=== PATIENT | male | born 1970 | race Caucasian/White ===

== ENCOUNTER → 2025-01-20 | Outpatient (CLI) | payer BC, SELFPAY ==
--- NOTE | 2025-01-20 10:23 | MRI_ITS ---
PROCEDURE: BRAIN W/WO CONTRAST 01/20/2025 REASON FOR EXAM: HEADACHE, NEW ONSET TECHNIQUE: Routine brain MRI without and with intravenous contrast. Multiplanar and multisequence images were obtained. CONTRAST: Clariscan VOLUME: 20 mL COMPARISON: None. FINDINGS: The ventricles are normal in size and midline in position. No evidence of acute hemorrhage or infarction. No extra-axial blood or fluid collections. The paranasal sinuses are clear. The mastoid air cells are well aerated. The calvarial vault and skull base are intact. No abnormal intracranial enhancement. MRI/Brain W/WO Contrast IMPRESSION: No acute intracranial abnormality. Reading Location: [place] [id number]
== END | disposition home or self-care (01) ==
PROVIDERS: PCP Family Medicine; Referring Provider Family Medicine; Visit Provider Family Medicine
DX: R51.9 Headache, unspecified (principal)
CPT/HCPCS: 70553; A9575

== ENCOUNTER 2025-02-08 10:13 | Inpatient (IN) | payer BC, SELFPAY ==
[2025-02-08] VITALS (21 sets, daily range): BP systolic 87–151; BP diastolic 46–93; PULSE 80–136; RESP 12–20; TEMP 36.1–37.2; O2SAT 95–100; BMI 34.6; BMI 34.1
--- NOTE | 2025-02-08 10:30 | EKG12_ITS ---
Test Reason : REPEAT Blood Pressure : */* mmHG Vent. Rate : 87 BPM Atrial Rate : 348 BPM P-R Int : * ms QRS Dur : 94 ms QT Int : 338 ms P-R-T Axes : 81 45 41 degrees QTcB Int : 406 ms Atrial flutter with 4:1 A-V conduction Nonspecific ST abnormality Abnormal ECG Confirmed by ADDIE OLIVAREZ, ULYSSES ([id number]), editor department YANDEL CALVIN ([id number]) on 02/10/2025 6:34:01 AM Referred By: Confirmed By: ULYSSES REAL MD
--- NOTE | 2025-02-08 10:31 | EDS_ITS ---
HPI History of Present Illness Chief Complaint: Palpitations Onset/Context/Timing Onset: Today Activity at onset: sudden Timing: Continuous Quality: Positive for - (Skipping) Worsened By: Nothing Relieved By: Nothing Associated Symptoms: Positive for Diaphoresis and Palpitations; Negative for Nausea, Vomiting, Dyspnea, Cough, Fever, Lightheadedness or Acid Reflux Narrative Narrative: Patient presents with palpitations that began this morning. Patient states he has no sensation of his heart racing or skipping. Patient states he went for a bike ride this morning. Patient states he rode approximately 20 miles on his bicycle. Patient states that his heart rate monitor was at 155 prior to him starting his ride. Patient states that he checked his pulse occasionally during the ride and noted that it was irregular. Patient states that he got up this morning ate breakfast and drank water. Patient states he drank some Gatorade as well. Patient states that he got onto his bicycle and noted the elevated heart rate. Patient denies any chest pain. Patient states he has not been sleeping well over the past couple weeks. Patient denies any shortness of breath. Patient does admit to some diaphoresis. CVD Risk Factors: Negative for Hypertension, Diabetes, Hypercholesterolemia, Family History 1' </=55 or Smoking PE Risk Factors: Positive for Recent Travel/Surgery; Negative for Recent Immobilization, Prior DVT or PE, Cancer or OCP + Smoking + >/=35 PFSH [facility] Medical History Neck pain Home Medications ?Medication ?Instructions ?Recorded ?Last Taken ?Type NK 02/08/25 Unknown History Allergy/AdvReac Type Severity Reaction Status Date / Time Penicillins (PCN) Allergy Mild Rash Verified 02/08/25 10:16 Sulfa (Sulfonamide Allergy Mild Rash Verified 02/08/25 10:16 Antibiotics) Family History no significant family his Surgical History no surgical history no surgical history Social History household members: spouse housing: house current occupational status: employed Smoking Status: Never smoker ROS ROS ED Constitutional Constitutional ED: Denies chills or fever(s) Eyes Eyes: Denies blurry vision or change in vision ENT ENT ED: Denies rhinorrhea or sore throat Cardiovascular Cardiovascular: Reports chest pain and palpitations Respiratory/Chest Respiratory/Chest: Denies cough or dyspnea Gastrointestinal Gastrointestinal: Denies nausea or vomiting Genitourinary Genitourinary ED: Reports urinary frequency; Denies dysuria or hematuria Musculoskeletal Musculoskeletal: Denies back pain or neck pain Integumentary Denies abscess or rash Neurologic Neurologic: Denies headache(s) or weakness Allergic/Immunologic Allergic/Immunologic ED: Denies mouth swelling or urticaria EXAM Physical Exam Const Vital Signs: 02/08/25 10:13 02/08/25 10:23 02/08/25 10:30 Temperature 99 F Temperature Source Oral Pulse Rate 136 H Respiratory Rate 15 Respiratory Effort Normal Non-Labored Blood Pressure 151/93 H Blood Pressure Mean 112 Pulse Ox 97 100 Oxygen Delivery Method Room Air Room Air 02/08/25 11:13 02/08/25 12:00 02/08/25 13:00 Temperature Temperature Source Pulse Rate 82 85 87 Respiratory Rate 12 17 16 Respiratory Effort Blood Pressure 107/72 141/69 H Blood Pressure Mean 83 93 Pulse Ox 100 96 97 Oxygen Delivery Method Room Air Room Air Room Air Positive well nourished and well developed Constitutional Narrative: BMI is 34.6. General Appearance ED: well developed and NAD HEENT Reports moist mucous membranes Neck supple and no JVD Chest Wall palpation of chest normal Resp normal respiratory effort and clear to auscultation bilaterally Cardio Rate: tachycardic Rhythm: abnormal rhythm irregularly irregular GI soft to palpation, non-tender and non-distended Extremity normal to inspection General Extremety ED: Negative for edema or tenderness General Extremity: Negative for edema Neuro oriented x3, CN's II-XII intact bilaterally and no sensory deficits noted Sensorium / Orientation: awake and alert Motor Exam: strength 5/5 throughout Heart Score History: Moderately Suspicious ECG: Nonspecific Repolarization Age: >45 - <65 years Risk Factors: No Risk Factors Score: 3 MDM MDM MDM Narrative Medical decision making narrative: Differential diagnosis includes cardiac dysrhythmia, cardiac ischemia, pneumonia, bronchitis, electrolyte abnormality, dehydration, urinary tract infection, pulmonary embolism, and anxiety. EKG will be obtained to assess for cardiac dysrhythmia and cardiac ischemia. Chest x-ray will be obtained to assess for pneumonia and congestive heart failure. High-sensitivity troponin will be obtained to assess for cardiac ischemia. 2-hour repeat high-sensitivity troponin will be obtained to assess for ongoing cardiac ischemia. D-dimer will be obtained to assess for pulmonary embolism. Patient requested TSH be drawn. This was ordered to assess for hyperthyroidism and hypothyroidism. Lab Data Attestation: I reviewed the patient's lab results. Lab results narrative: CBC was reviewed and was within normal limits. Basic metabolic profile was reviewed. BUN was slightly elevated at 26. Creatinine was normal at 1.02. Glucose was slightly elevated at 111. Initial high-sensitivity troponin was reviewed and was normal at 21. D-dimer was reviewed and was elevated at 0.61. 2-hour repeat high-sensitivity troponin was reviewed and was normal at 19. TSH was reviewed and was normal at 1.6. Labs: Laboratory Results - last 24 hr 02/08/25 02/08/25 02/08/25 10:15 10:18 11:31 WBC 10.2 RBC 4.52 L Hgb 14.1 Hct 41.8 MCV 92.5 MCH 31.2 MCHC 33.7 RDW Std Deviation 43.9 RDW Coeff of Kapil 12.9 Plt Count 436 MPV 9.0 Immature Gran % (Auto) 0.900 Neut % (Auto) 71.4 H Lymph % (Auto) 19.7 [place] % (Auto) 6.6 Eos % (Auto) 1.0 Baso % (Auto) 0.4 Absolute Neuts (auto) 7.3 Absolute Lymphs (auto) 2.01 Nucleated RBC % 0 D-Dimer Quant (PE/DVT) 0.61 H* Sodium 138 Potassium 4.2 Chloride 102 Carbon Dioxide 23.0 Anion Gap 13 BUN 26 H Creatinine 1.02 Estim Creat Clear Calc 96.44 Est GFR (MDRD) Non-Af 87 BUN/Creatinine Ratio 25.5 H Glucose 111 H Calcium 9.5 Magnesium 2.1 Total Bilirubin 0.34 Direct Bilirubin 0.15 AST 16 ALT 20 Alkaline Phosphatase 64 Troponin T High Sens 21 Troponin T Hi Sens 2 Hr Total Protein 6.4 Albumin 3.5 Globulin 2.9 TSH Urine Color Yellow Urine Clarity Clear Urine pH 6.0 Ur Specific [place] 1.015 Urine Protein 15 H Urine Glucose (UA) Normal Urine Ketones Negative Urine Occult Blood Negative Urine Nitrite Negative Urine Bilirubin Negative Urine Urobilinogen Normal Ur Leukocyte Esterase Negative Urine RBC 0 SEEN Urine WBC 0 SEEN Ur Squamous Epith Cells 0 SEEN Urine Bacteria 0 SEEN Urine Mucus 0 SEEN 02/08/25 12:18 WBC RBC Hgb Hct MCV MCH MCHC RDW Std Deviation RDW Coeff of Kapil Plt Count MPV Immature Gran % (Auto) Neut % (Auto) Lymph % (Auto) [place] % (Auto) Eos % (Auto) Baso % (Auto) Absolute Neuts (auto) Absolute Lymphs (auto) Nucleated RBC % D-Dimer Quant (PE/DVT) Sodium Potassium Chloride Carbon Dioxide Anion Gap BUN Creatinine Estim Creat Clear Calc Est GFR (MDRD) Non-Af BUN/Creatinine Ratio Glucose Calcium Magnesium Total Bilirubin Direct Bilirubin AST ALT Alkaline Phosphatase Troponin T High Sens Troponin T Hi Sens 2 Hr 19 Total Protein Albumin Globulin TSH 1.600 Urine Color Urine Clarity Urine pH Ur Specific [place] Urine Protein Urine Glucose (UA) Urine Ketones Urine Occult Blood Urine Nitrite Urine Bilirubin Urine Urobilinogen Ur Leukocyte Esterase Urine RBC Urine WBC Ur Squamous Epith Cells Urine Bacteria Urine Mucus Radiography Chest X-Ray - ED: 1 View, Read by ED Physician, Read by Radiologist, No Acute Disease and Cardiomegaly Diagnostic Testing: Clinical Impression(s) from Imaging Studies Chest X-Ray 02/08/25 10:45 IMPRESSION: Cardiomegaly. No acute findings. Reading Location: [facility] Chest CTA 02/08/25 10:56 IMPRESSION: NORMAL CHEST CTA. NO EVIDENCE OF ACUTE PULMONARY EMBOLISM. Reading Location: [facility] Portable 1 view chest x-ray was obtained. On my independent interpretation, lung padgett are clear. There is cardiomegaly noted. Bony thorax is normal. There is no acute process noted. Radiologist also interpreted the x-ray and agrees. Because of the elevated D-dimer, CTA of the chest was obtained. There is no evidence of pulmonary embolism or aortic dissection. There is no acute process noted. This was interpreted by the radiologist and was also independently reviewed by myself. EKG Initial EKG: Attestation: I personally reviewed and interpreted this EKG as follows: Interpretation: Atrial Fibrillation (138) and Non-Specific ST Changes Comments: EKG was obtained. On my independent interpretation, shows atrial fibrillation with a rate of 138. QRS interval was normal at 96. QTc interval was slightly prolonged at 502 ms. [place] is normal. There are nonspecific ST-T wave changes. Prior EKG tracings: not available for review Prior: No Prior Follow-up EKG: Attestation: I personally reviewed and interpreted this EKG as follows: Interpretation: Atrial Fibrillation (87) and Non-Specific ST Changes Comments: Repeat EKG was obtained. On my independent interpretation, it showed atrial flutter with 4-1 conduction with a rate of 87. QRS interval was normal at 94 ms. QTc interval was normal at 406 ms. [place] is normal at 45. There are nonspecific ST-T wave changes noted. Prior EKG tracings: available for review Prior: Unchanged Treatment and Re-Evaluation :: Patient was given aspirin. Patient was given a bolus of Cardizem. Patient's heart rate improved into the 80s. On reevaluation, patient's heart rate was starting to go back up into the 110s. Patient was started on a Cardizem drip. Case was discussed with the hospitalist for admission. He will admit the patient to PCU. Patient understood and was agreeable with the plan. All questions were answered. Critical Care Time Critical Care Time: Yes Critical care time (excluding procedures): 30-74 minutes (31), Including time spent:, Discussing w/Patient &/or Family/Hair Blender, Discussing w/Consultants, Arranging Admission or Transfer and Performing Direct Patient Care at Bedside Discharge Plan Dx/Rx/DC Orders Clinical Impression: Atrial fibrillation, new onset, Tachycardia, Atrial flutter with rapid ventricular response Disposition Disposition: Acute Care Hospital [facility] Discharge Date/Time: 02/08/25 14:14
[2025-02-08 10:36] LABS: Hematocrit 41.8 % (40-54); Hemoglobin 14.1 g/dL (13.0-16.5); Immature Granulocytes Count 0.090 X10^3/uL (0.0-0.0); Mean Corp Hgb Conc 33.7 g/dL (32-36); Mean Corpuscular Volume 92.5 fL (80-94); Mean Platelet Vol. 9.0 fl (6.2-12.0); NRBC Flagged by Analyzer 0 % (0-5); Platelet Count 436 K/mm3 (150-450); RBC Distribution Width CV 12.9 % (11.6-14.6); RBC Distribution Width SD 43.9 fl (35.1-43.9); Red Blood Count 4.52 M/mm3 (4.6-6.2); White Blood Count 10.2 K/mm3 (4.4-11.0)
--- OUTSIDE RECORDS SUMMARY | 2025-02-08 10:42 | XMS RPT_ITS | CCD ---
Author Organization [facility] Inform ion Partnership [facility] Care Team Providers Care Neon Sign Maker Name Role Phone Unavailable Primary Care Provider Joi CLIFFORD MD, YUNG Tello Primary Care Physician Russell DURHAM, Dr. Armenta Attending Provider [phone] Russell DURHAM, Dr. Armenta Referring Provider [phone] Dr. Yung Clifford MD Primary Care Provider Estella Morrison Referring Unavailable Yung Clifford Primary Care Unavailable Estella Morrison Attending Unavailable Estella Morrison Referring Unavailable Estella Morrison Attending YUNG Diaz MD Primary Care Unavailable CATRACHITA BULLOCK DO Attending YUNG Diaz MD Primary Care Unavailable RUSSELL DO, DR ESTELLA Wagner Attending YUNG Dodd MD Primary Care Unavailable RUSSELL , DR ESTELLA Wagner Attending YUNG Dodd MD Primary Care Unavailable RUSSELL , DR ESTELLA Wagner Attending Joi RILEY VP SITE-BEHAVIOR INTERVENTIONIST, AMBER Attending YUNG Nichols MD Primary Care Unavailable Allergies Allergy Classification Reported Allergen(s) Allergy Type Date of Onset Reaction(s) Facility (5 sources) Amoxicillin; Translations: [amoxicillin] Drug Allergy [facility] [place] (5 sources) Sulfonamide; Translations: [sulfa drugs] Drug allergy rash [facility] [place] Medications Current Medications Medication Drug Class(es) Dates Sig (Normalized) Sig (Original) aspirin 81 mg delayed release oral tablet (2 sources) Platelet Aggregation Inhibitor, Nonsteroidal Anti-inflammatory Drug Start: 05-19-2020 aspirin 81 mg oral delayed release tablet Dose : 81 mg = 1 tab(s), Oral, qDay, # 90 tab(s), 0 Refill(s), SOB (shortness of breath) Tachycardia Start Date: 05/19/20 Status: Ordered cetirizine hydrochloride 10 mg oral tablet (2 sources) Histamine-1 Receptor Antagonist Start: 12-06-2020 take 1 mg by mouth once daily Zyrtec 10 mg oral tablet mg = tab(s), Oral, qDay, 0 Refill(s) Start Date: 12/06/20 Status: Ordered Ergocalciferol (5 sources) Provitamin D2 Compound Start: 12-06-2020 Vitamin D2 Oral, qDay, 0 Refill(s) Start Date: 12/06/20 Status: Ordered Repeat number: 1 Start: 12-06-2020 Vitamin D2 Ora l, qDay, 0 Refill(s) Start Date: 12/06/20 Status: Ordered Probiotic (5 sources) Start: 05-31-2020 Probiotic 0 Re fill(s) Start Date: 05/31/20 Status: Ordered Repeat number: 1 Start: 05-31-2020 Probiotic 0 Re fill(s) Start Date: 05/31/20 Status: Ordered tiZANidine 4 mg oral tablet (3 sources) Central alpha-2 Adrenergic Agonist Start: 01-19-2025 tiZANidine 4 mg oral tablet Dose : 4 mg = 1 tab(s), Oral, q8h, # 30 tab(s), 0 Refill(s), [id number], Neck pain on right side, 175, cm, 01/19/25 9:38:00 EDT, Height, kg, 01/19/25 9:38:00 EDT, Dosing Weight Start Date: 01/19/25 Status: Ordered Quantity: 30.0 Unit: tab(s) Repeat number: 1 Indications: Cervicalgia; Completed/Discontinued Medications Medication Drug Class(es) Dates Sig (Normalized) Sig (Original) terbinafine 250 mg oral tablet (2 sources) Allylamine Antifungal Start: 12-06-2020 End: 02-28-2021 terbinafine 250 mg oral tablet Dose : 250 mg = 1 tab(s), Oral, qDay, # 84 tab(s), 0 Refill(s), [id number], Well adult exam Onychomycosis, 172.5, cm, 04/26/21 8:14:00 EDT, Height, kg, 12/06/20 8:14:00 EDT, Dosing Weight Start Date: 12/06/20 Stop Date: 02/28/21 Status: Ordered Problems Active Problems Problem Classification Problem Date Documented Date Episodic/Chronic Cardiac dysrhythmias (5 sources) Palpitations 05-31-2020 Episodic Disorders of lipid metabolism (5 sources) Mixed hyperlipidemia 07-14-2020 Chronic Essential hypertension (1 source) Essential hypertension; Translations: [Primary hypertension] Chronic Headache; including migraine (1 source) Headache; Translations: [Headache, unspecified] Onset: 01-19-2025 Episodic Headache; including migraine (4 sources) Headache; including migraine; Translations: [Headache, unspecified] Onset: 01-19-2025 Mycoses (3 sources) Onychomycosis of toenails 07-18-2024 Episodic Other circulatory disease (5 sources) Elevated blood-pressure reading without diagnosis of hypertension 07-14-2020 Episodic Other liver diseases (2 sources) Abnormal levels of other serum enzymes; Translations: [Abnormal levels of other serum enzymes] Onset: 02-02-2025 Episodic Unclassified (3 sources) Patient encounter status 07-18-2024 Viral infection (5 sources) Disease caused by 2019-nCoV 02-27-2023 Past or Other Problems Problem Classification Problem Date Documented Date Episodic/Chronic Other screening for suspected conditions (not mental disorders or infectious disease) (7 sources) Electrocardiogram abnormal; Translations: [Encounter for screening for malignant neoplasm of prostate] Onset: 07-07-2024 05-31-2020 Episodic Results Test Name Value Interpretation Reference Range Facility .Auto Diffon 02-02-2025 Basophil, Absolute 0.0 10 3/mcL Normal 0.0-0.3 [facility] Comment on above: Performed By: #### C MP, ADIFF, GFR, ANEU, CBC #### [place] [address] [place], [place] [address] Basophils/100 WBC (Bld) 0.6 % Normal 0.0-2.5 [facility] Comment on above: Performed By: #### C MP, ADIFF, GFR, ANEU, CBC #### [address] [place], [place] [address] Eosinophil, Absolute 0.1 10 3/mcL Normal 0.0-0.7 [facility] Comment on above: Performed By: #### C MP, ADIFF, GFR, ANEU, CBC #### [address] [address] Eosinophils/100 WBC (Bld) 1.5 % Normal 0.0-6.0 [facility] Comment on above: Performed By: #### C MP, ADIFF, GFR, ANEU, CBC #### [address] [address] Lymphocyte, Absolute 0.9 10 3/mcL Normal 0.9-4.3 [facility] Comment on above: Performed By: #### C MP, ADIFF, GFR, ANEU, CBC #### [address] [address] Lymphocytes/100 WBC (Bld) 11.3 % Low 20.0-40.0 [facility] Comment on above: Performed By: #### C MP, ADIFF, GFR, ANEU, CBC #### [address] [address] Monocyte, Absolute 0.5 10 3/mcL Normal 0.1-1.4 [facility] Comment on above: Performed By: #### C MP, ADIFF, GFR, ANEU, CBC #### [address] [address] Monocytes/100 WBC (Bld) 6.3 % Normal 2.0-13.0 [facility] Comment on above: Performed By: #### C MP, ADIFF, GFR, ANEU, CBC #### [address] [address] Neutrophils/100 WBC (Bld) 80.3 % High 50.0-75.0 [facility] Comment on above: Performed By: #### C MP, ADIFF, GFR, ANEU, CBC #### [address] [address] .GFRon 02-02-2025 Estimated Glomerular Filtration Rate 94 ml/min/1.73sqm Normal [facility] Comment on above: Result Comment: Stages of Chronic Kidney Disease (CKD) Stage Description eGFR(ml/min/1.73 sq.m.) CKD 1 Normal kidney function or >=90 normal kindney function with possible kidney damage (ex. Proteinuria) CKD 2 Kidney damage with mild loss 60-89 of kidney function CKD 3a Mild to moderate loss of kidney 45-59 function CKD 3b Moderate to severe loss of 30-44 of kindey function CKD 4 Severe loss of kidney function 15-29 CKD 5 Kidney failure <15 Note: (go live 2024) the eGFR calculation was updated to the 2020 CKD-EPI creatinine equation without a race factor to calculate the eGFR results. Performed By: #### C MP, ADIFF, GFR, ANEU, CBC #### [address] [address] .NEUABSon 02-02-2025 Neutrophil, Absolute 6.5 10 3/mcL Normal 2.3-8.1 [facility] Comment on above: Performed By: #### C MP, ADIFF, GFR, ANEU, CBC #### [address] [address] CBCon 02-02-2025 Erythrocyte distribution width (RBC) [Ratio] 13.8 % Normal 11.5-15.5 [facility] Comment on above: Performed By: #### C MP, ADIFF, GFR, ANEU, CBC #### [address] [address] Hematocrit (Bld) [Volume fraction] 37.1 % Low 40.0-52.0 [facility] Comment on above: Performed By: #### C MP, ADIFF, GFR, ANEU, CBC #### [address] [address] Hgb 12.7 G/dL Low 13.0-17.5 [facility] Comment on above: Performed By: #### C MP, ADIFF, GFR, ANEU, CBC #### [address] [address] MCH (RBC) [Entitic mass] 31.9 pg Normal 27.0-33.0 [facility] Comment on above: Performed By: #### C MP, ADIFF, GFR, ANEU, CBC #### [address] [address] MCHC 34.2 G/dL Normal 32.0-36.0 [facility] Comment on above: Performed By: #### C MP, ADIFF, GFR, ANEU, CBC #### [place] [address] MCV (RBC) [Entitic vol] 93.3 fL Normal 81.0-100.0 [facility] Comment on above: Performed By: #### C MP, ADIFF, GFR, ANEU, CBC #### [place] [address] Platelet 418 10 3/mcL Normal 150-450 [facility] Comment on above: Performed By: #### C MP, ADIFF, GFR, ANEU, CBC #### [place] [address] Platelet mean volume (Bld) [Entitic vol] 7.8 fL Normal 6.4-10.5 [facility] Comment on above: Performed By: #### C MP, ADIFF, GFR, ANEU, CBC #### [place] [id number] RBC 3.98 10 6/mcL Low 4.50-6.00 [facility] Comment on above: Performed By: #### C MP, ADIFF, GFR, ANEU, CBC #### [place] [address] WBC 8.1 10 3/mcL Normal 4.5-10.8 [facility] Comment on above: Performed By: #### C MP, ADIFF, GFR, ANEU, CBC #### [place] [address] CMPon 02-02-2025 Albumin Level 3.1 G/dL Low 3.5-5.0 [facility] Comment on above: Performed By: #### C MP, ADIFF, GFR, ANEU, CBC #### [address] [address] Albumin/Globulin [Mass ratio] 0.8 {ratio} Low 1.1-2.5 [facility] Comment on above: Performed By: #### C MP, ADIFF, GFR, ANEU, CBC #### [place] [id number] ALP [Catalytic activity/Vol] 72 U/L Normal 40-135 [facility] Comment on above: Performed By: #### C MP, ADIFF, GFR, ANEU, CBC #### [place] [address] ALT [Catalytic activity/Vol] 34 U/L Normal 16-63 [facility] Comment on above: Performed By: #### C MP, ADIFF, GFR, ANEU, CBC #### [place] [address] AST [Catalytic activity/Vol] 27 U/L Normal 10-40 [facility] Comment on above: Performed By: #### C MP, ADIFF, GFR, ANEU, CBC #### [place] [address] Bili Total 0.6 mg/dL Normal 0.2-1.0 [facility] Comment on above: Result Comment: Use of this assay is not recommended for patients undergoing treatment with eltrombopag due to the potential for falsely elevated results. Performed By: #### C MP, ADIFF, GFR, ANEU, CBC #### [place] [address] BUN/Creatinine Ratio 17 ratio Normal 7-27 [facility] Comment on above: Performed By: #### C MP, ADIFF, GFR, ANEU, CBC #### [place] [address] Calcium [Mass/Vol] 8.9 mg/dL Normal 8.4-10.2 [facility] Comment on above: Performed By: #### C MP, ADIFF, GFR, ANEU, CBC #### [address] [address] Chloride [Moles/Vol] 105 mmol/L Normal 98-107 [facility] Comment on above: Performed By: #### C MP, ADIFF, GFR, ANEU, CBC #### [address] [address] CO2 [Moles/Vol] 26 mmol/L Normal 22-29 [facility] Comment on above: Performed By: #### C MP, ADIFF, GFR, ANEU, CBC #### [address] [address] Creatinine [Mass/Vol] 0.96 mg/dL Normal 0.67-1.17 [facility] Comment on above: Performed By: #### C MP, ADIFF, GFR, ANEU, CBC #### [address] [address] Electrolyte Balance 10.0 mEq/L Normal 4.0-15.0 [facility] Comment on above: Performed By: #### C MP, ADIFF, GFR, ANEU, CBC #### [address] [address] Globulin 3.9 G/dL Normal 2.7-4.4 [facility] Comment on above: Performed By: #### C MP, ADIFF, GFR, ANEU, CBC #### [address] [address] Glucose [Mass/Vol] 102 mg/dL Normal 70-105 [facility] Comment on above: Performed By: #### C MP, ADIFF, GFR, ANEU, CBC #### [address] [address] Potassium [Moles/Vol] 4.3 mmol/L Normal 3.5-5.1 [facility] Comment on above: Performed By: #### C MP, ADIFF, GFR, ANEU, CBC #### [address] [address] Sodium [Moles/Vol] 141 mmol/L Normal 136-145 [facility] Comment on above: Performed By: #### C MP, ADIFF, GFR, ANEU, CBC #### [facility] [address] [place], [place] [address] Total Protein 7.0 G/dL Normal 6.4-8.2 [facility] Comment on above: Performed By: #### C MP, ADIFF, GFR, ANEU, CBC #### [facility] [address] [place], [place] [address] Urea nitrogen [Mass/Vol] 16 mg/dL Normal 7-18 [facility] Comment on above: Performed By: #### C MP, ADIFF, GFR, ANEU, CBC #### [facility] [address] [place], [place] [address] LABORATORYOrdered By: SYSTEM SYSTEM on 02-02-2025 Albumin BCP dye [Mass/Vol] 3.1 G/dL Low 3.5 - 5.0 G/dL AO ADM SS Albumin/Globulin [Mass ratio] 0.8 {ratio} Low 1.1 - 2.5 ratio AO ADM SS ALP [Catalytic activity/Vol] 72 U/L Normal 40 - 135 U/L AO ADM SS ALT With P-5'-P [Catalytic activity/Vol] 34 U/L Normal 16 - 63 U/L AO ADM SS AST With P-5'-P [Catalytic activity/Vol] 27 U/L Normal 10 - 40 U/L AO ADM SS Basophils (Bld) [#/Vol] 0.0 103/mcL Normal 0.0 - 0.3 10^3/mcL AO Workflow SS Basophils/100 WBC (Bld) 0.6 % Normal 0.0 - 2.5 % AO Workflow SS Bilirubin [Mass/Vol] 0.6 mg/dL Normal 0.2 - 1 .0 mg/dL AO ADM SS Comment on above: Interpretive Data: U se of this assay is not recommended for patients undergoing treatment with eltrombopag due to the potential for falsely elevated results. Calcium [Mass/Vol] 8.9 mg/dL Normal 8.4 - 10. 2 mg/dL AO ADM SS Chloride [Moles/Vol] 105 mmol/L Normal 98 - 10 7 mmol/L AO ADM SS CO2 [Moles/Vol] 26 mmol/L Normal 22 - 29 mmol/L AO ADM SS Creatinine [Mass/Vol] 0.96 mg/dL Normal 0.67 - 1.17 mg/dL AO ADM SS Electrolyte Balance 10.0 mEq/L Normal 4.0 - 15 .0 mEq/L AO ADM SS Eosinophil, Absolute 0.1 103/mcL Normal 0.0 - 0 .7 10^3/mcL AO Workflow SS Eosinophils/100 WBC (Bld) 1.5 % Normal 0.0 - 6.0 % AO Workflow SS Erythrocyte distribution width (RBC) [Ratio] 13.8 % Normal 11.5 - 15.5 % AO Workflow SS Estimated Glomerular Filtration Rate 94 ml/min/1.73sqm Invalid Interpretation Code AO Chemistry S Comment on above: Interpretive Data: Stages of Chronic Kidney Disease (CKD) Stage Description eGFR(ml/min/1.73 sq.m.) CKD 1 Normal kidney function or >=90 normal kindney function with possible kidney damage (ex. Proteinuria) CKD 2 Kidney damage with mild loss 60-89 of kidney function CKD 3a Mild to moderate loss of kidney 45-59 function CKD 3b Moderate to severe loss of 30-44 of kindey function CKD 4 Severe loss of kidney function 15-29 CKD 5 Kidney failure <15 Note: (go live 2024) the eGFR calculation was updated to the 2020 CKD-EPI creatinine equation without a race factor to calculate the eGFR results. Globulin 3.9 G/dL Normal 2.7 - 4.4 G/dL AO ADM SS Glucose [Mass/Vol] 102 mg/dL Normal 70 - 105 mg/dL AO ADM SS Hematocrit (Bld) [Volume fraction] 37.1 % Low 40.0 - 52.0 % AO Workflow SS Hemoglobin (Bld) [Mass/Vol] 12.7 G/dL Low 13.0 - 17.5 G/dL AO Workflow SS Lymphocytes (Bld) [#/Vol] 0.9 103/mcL Normal 0.9 - 4.3 10^3/mcL AO Workflow SS Lymphocytes/100 WBC (Bld) 11.3 % Low 20.0 - 40.0 % AO Workflow SS MCH (RBC) [Entitic mass] 31.9 pg Normal 27.0 - 33.0 pg AO Workflow SS MCHC 34.2 G/dL Normal 32.0 - 36.0 G/dL AO Workflow SS MCV (RBC) [Entitic vol] 93.3 fL Normal 81.0 - 100.0 fL AO Workflow SS Monocytes (Bld) [#/Vol] 0.5 103/mcL Normal 0.1 - 1.4 10^3/mcL AO Workflow SS Monocytes/100 WBC (Bld) 6.3 % Normal 2.0 - 13.0 % AO Workflow SS Neutrophils (Bld) [#/Vol] 6.5 103/mcL Normal 2.3 - 8.1 10^3/mcL AO Workflow SS Neutrophils/100 WBC (Bld) 80.3 % High 50.0 - 75.0 % AO Workflow SS Platelet mean volume (Bld) [Entitic vol] 7.8 fL Normal 6.4 - 10.5 fL AO Workflow SS Platelets (Bld) [#/Vol] 418 103/mcL Normal 150 - 450 10^3/mcL AO Workflow SS Potassium [Moles/Vol] 4.3 mmol/L Normal 3.5 - 5.1 mmol/L AO ADM SS Protein [Mass/Vol] 7.0 G/dL Normal 6.4 - 8.2 G/dL AO ADM SS RBC (Bld) [#/Vol] 3.98 106/mcL Low 4.50 - 6.0 0 10^6/mcL AO Workflow SS Sodium [Moles/Vol] 141 mmol/L Normal 136 - 145 mmol/L AO ADM SS Urea nitrogen [Mass/Vol] 16 mg/dL Normal 7 - 18 mg/dL AO ADM SS Urea nitrogen/Creatinine [Mass ratio] 17 ratio Normal 7 - 27 ratio AO ADM SS WBC (Bld) [#/Vol] 8.1 103/mcL Normal 4.5 - 10.8 10^3/mcL AO Workflow SS Brain W/WO Contraston 2024 Brain W/WO Contrast [facility] [address] [place] [address] Brain W/WO Contrast MR#: [id number] Acct: [id number] Name: RENAN CENTENO LUIS Rep #: [id number] : 1970 M [id number] From: Beto Reinoso MD PCP: Dr. Yung Clifford MD Status: REG CLI Study: Brain W/WO Contrast Date of Exam: 01/20/25 Exam# [id number] Ordering Dr: Estella Morrison DO PROCEDURE: BRAIN W/WO CONTRAST 01/20/2025 REASON FOR EXAM: HEADACHE, NEW ONSET TECHNIQUE: Routine brain MRI without and with intravenous contrast. Multiplanar and multisequence images were obtained. CONTRAST: Clariscan VOLUME: 20 mL COMPARISON: None. FINDINGS: The ventricles are normal in size and midline in position. No evidence of acute hemorrhage or infarction. No extra-axial blood or fluid collections. The paranasal sinuses are clear. The mastoid air cells are well aerated. The calvarial vault and skull base are intact. No abnormal intracranial enhancement. MRI/Brain W/WO Contrast IMPRESSION: No acute intracranial abnormality. Reading Location: [place] [address] CC: Dr. Estella Morrison DO; Dr. Yung Clifford MD Cost Accounting Manager: Signed Normal [facility] Magnetic resonance imaging r eportOrdered By: Beto Reinoso on 01-20-2025 Study report [facility] [address] [place] [id number] Brain W/WO Contrast MR#: [id number] Acct: [id number] Name: RENAN CENTENO Rep #: [id number] : 1970 M 54 From: Jhonatan Reinoso MD PCP: Dr. Yung Clifford MD Status: REG CLI Study:Brain W/WO Contrast Date of Exam: 01/20/25 Exam# [id number] Ordering Dr: Yosvany Morrison DO PROCEDURE: BRAIN W/WO CONTRAST 01/20/2025 REASON FOR EXAM: HEADACHE, NEW ONSET TECHNIQUE: Routine brain MRI without and with intravenous contrast. Multiplanar and multisequence images were obtained. CONTRAST: Clariscan VOLUME: 20 mL COMPARISON: None. FINDINGS: The ventricles are normal in size and midline in position. No evidence of acutehemorrhage or infarction. No extra-axial blood or fluid collections. The paranasal sinuses are clear. The mastoid air cells are well aerated. The calvarial vault and skull base are intact. No abnormal intracranial enhancement. MRI/Brain W/WO Contrast IMPRESSION: No acute intracranial abnormality. Reading Location: [id number] CC: Dr. Estella Morrison DO; Dr. Yung Clifford MD ~ Cost Accounting Manager: [facility] .Auto Diffon 01-19-2025 Basophil, Absolute 0.0 10 3/mcL Normal 0.0-0.3 [facility] Comment on above: Performed By: #### C MP, ADIFF, GFR, ANEU, CBC #### [address] [address] Basophils/100 WBC (Bld) 0.5 % Normal 0.0-2.5 [facility] Comment on above: Performed By: #### C MP, ADIFF, GFR, ANEU, CBC #### [address] [address] Eosinophil, Absolute 0.0 10 3/mcL Normal 0.0-0.7 [facility] Comment on above: Performed By: #### C MP, ADIFF, GFR, ANEU, CBC #### [address] [address] Eosinophils/100 WBC (Bld) 0.6 % Normal 0.0-6.0 [facility] Comment on above: Performed By: #### C MP, ADIFF, GFR, ANEU, CBC #### [address] [address] Lymphocyte, Absolute 0.5 10 3/mcL Low 0.9-4.3 [facility] Comment on above: Performed By: #### C MP, ADIFF, GFR, ANEU, CBC #### [address] [address] Lymphocytes/100 WBC (Bld) 8.6 % Low 20.0-40.0 [facility] Comment on above: Performed By: #### C MP, ADIFF, GFR, ANEU, CBC #### [address] [address] Monocyte, Absolute 0.6 10 3/mcL Normal 0.1-1.4 [facility] Comment on above: Performed By: #### C MP, ADIFF, GFR, ANEU, CBC #### [address] [address] Monocytes/100 WBC (Bld) 9.5 % Normal 2.0-13.0 [facility] Comment on above: Performed By: #### C MP, ADIFF, GFR, ANEU, CBC #### [address] [address] Neutrophils/100 WBC (Bld) 80.8 % High 50.0-75.0 [facility] Comment on above: Performed By: #### C MP, ADIFF, GFR, ANEU, CBC #### [address] [address] .GFRon 01-19-2025 Estimated Glomerular Filtration Rate 103 ml/min/1.73sqm Normal [facility] Comment on above: Result Comment: Stages of Chronic Kidney Disease (CKD) Stage Description eGFR(ml/min/1.73 sq.m.) CKD 1 Normal kidney function or >=90 normal kindney function with possible kidney damage (ex. Proteinuria) CKD 2 Kidney damage with mild loss 60-89 of kidney function CKD 3a Mild to moderate loss of kidney 45-59 function CKD 3b Moderate to severe loss of 30-44 of kindey function CKD 4 Severe loss of kidney function 15-29 CKD 5 Kidney failure <15 Note: (go live 2024) the eGFR calculation was updated to the 2020 CKD-EPI creatinine equation without a race factor to calculate the eGFR results. Performed By: #### C MP, ADIFF, GFR, ANEU, CBC #### [address] [address] .NEUABSon 01-19-2025 Neutrophil, Absolute 5.0 10 3/mcL Normal 2.3-8.1 [facility] Comment on above: Performed By: #### C MP, ADIFF, GFR, ANEU, CBC #### [address] [address] CBCon 01-19-2025 Erythrocyte distribution width (RBC) [Ratio] 13.5 % Normal 11.5-15.5 [facility] Comment on above: Performed By: #### C MP, ADIFF, GFR, ANEU, CBC #### [place] [address] Hematocrit (Bld) [Volume fraction] 41.9 % Normal 40.0-52.0 [facility] Comment on above: Performed By: #### C MP, ADIFF, GFR, ANEU, CBC #### [place] [address] Hgb 14.4 G/dL Normal 13.0-17.5 [facility] Comment on above: Performed By: #### C MP, ADIFF, GFR, ANEU, CBC #### [place] [address] MCH (RBC) [Entitic mass] 31.5 pg Normal 27.0-33.0 [facility] Comment on above: Performed By: #### C MP, ADIFF, GFR, ANEU, CBC #### [place] [address] MCHC 34.3 G/dL Normal 32.0-36.0 [facility] Comment on above: Performed By: #### C MP, ADIFF, GFR, ANEU, CBC #### [place] [address] MCV (RBC) [Entitic vol] 91.9 fL Normal 81.0-100.0 [facility] Comment on above: Performed By: #### C MP, ADIFF, GFR, ANEU, CBC #### [place] [address] Platelet 220 10 3/mcL Normal 150-450 [facility] Comment on above: Performed By: #### C MP, ADIFF, GFR, ANEU, CBC #### [place] [address] Platelet mean volume (Bld) [Entitic vol] 8.3 fL Normal 6.4-10.5 [facility] Comment on above: Performed By: #### C MP, ADIFF, GFR, ANEU, CBC #### [place] [address] RBC 4.56 10 6/mcL Normal 4.50-6.00 [facility] Comment on above: Performed By: #### C MP, ADIFF, GFR, ANEU, CBC #### [address] [address] WBC 6.2 10 3/mcL Normal 4.5-10.8 [facility] Comment on above: Performed By: #### C MP, ADIFF, GFR, ANEU, CBC #### [address] [address] CMPon 01-19-2025 Albumin Level 3.5 G/dL Normal 3.5-5.0 [facility] Comment on above: Performed By: #### C MP, ADIFF, GFR, ANEU, CBC #### [address] [address] Albumin/Globulin [Mass ratio] 1.0 {ratio} Low 1.1-2.5 [facility] Comment on above: Performed By: #### C MP, ADIFF, GFR, ANEU, CBC #### [address] [address] ALP [Catalytic activity/Vol] 94 U/L Normal 40-135 [facility] Comment on above: Performed By: #### C MP, ADIFF, GFR, ANEU, CBC #### [address] [address] ALT [Catalytic activity/Vol] 108 U/L High 16-63 [facility] Comment on above: Performed By: #### C MP, ADIFF, GFR, ANEU, CBC #### [address] [address] AST [Catalytic activity/Vol] 62 U/L High 10-40 [facility] Comment on above: Performed By: #### C MP, ADIFF, GFR, ANEU, CBC #### [address] [address] Bili Total 0.6 mg/dL Normal 0.2-1.0 [facility] Comment on above: Result Comment: Use of this assay is not recommended for patients undergoing treatment with eltrombopag due to the potential for falsely elevated results. Performed By: #### C MP, ADIFF, GFR, ANEU, CBC #### [place] [address] BUN/Creatinine Ratio 16 ratio Normal 7-27 [facility] Comment on above: Performed By: #### C MP, ADIFF, GFR, ANEU, CBC #### [place] [address] Calcium [Mass/Vol] 8.9 mg/dL Normal 8.4-10.2 [facility] Comment on above: Performed By: #### C MP, ADIFF, GFR, ANEU, CBC #### [place] [address] Chloride [Moles/Vol] 102 mmol/L Normal 98-107 [facility] Comment on above: Performed By: #### C MP, ADIFF, GFR, ANEU, CBC #### [place] [address] CO2 [Moles/Vol] 24 mmol/L Normal 22-29 [facility] Comment on above: Performed By: #### C MP, ADIFF, GFR, ANEU, CBC #### [place] [address] Creatinine [Mass/Vol] 0.86 mg/dL Normal 0.67-1.17 [facility] Comment on above: Performed By: #### C MP, ADIFF, GFR, ANEU, CBC #### [place] [address] Electrolyte Balance 12.0 mEq/L Normal 4.0-15.0 [facility] Comment on above: Performed By: #### C MP, ADIFF, GFR, ANEU, CBC #### [address] [address] Globulin 3.6 G/dL Normal 2.7-4.4 [facility] Comment on above: Performed By: #### C MP, ADIFF, GFR, ANEU, CBC #### [address] [address] Glucose [Mass/Vol] 107 mg/dL High 70-105 [facility] Comment on above: Performed By: #### C MP, ADIFF, GFR, ANEU, CBC #### [address] [address] Potassium [Moles/Vol] 4.4 mmol/L Normal 3.5-5.1 [facility] Comment on above: Performed By: #### C MP, ADIFF, GFR, ANEU, CBC #### [address] [address] Sodium [Moles/Vol] 138 mmol/L Normal 136-145 [facility] Comment on above: Performed By: #### C MP, ADIFF, GFR, ANEU, CBC #### [address] [address] Total Protein 7.1 G/dL Normal 6.4-8.2 [facility] Comment on above: Performed By: #### C MP, ADIFF, GFR, ANEU, CBC #### [address] [address] Urea nitrogen [Mass/Vol] 14 mg/dL Normal 7-18 [facility] Comment on above: Performed By: #### C MP, ADIFF, GFR, ANEU, CBC #### [address] [address] [address] VENOGRAM HEAD W/CONTRASTo n 01-19-2025 CT VENOGRAM HEAD W/CONTRAST ORIGINAL EXAMINATION: CTV OF THE HEAD WITH CONTRAST 01/19/2025 6:08 pm TECHNIQUE: CT venogram of the head/brain was performed with the administration of intravenous contrast. Multiplanar reformatted images are provided for review. MIP images are provided for review. Automated exposure control, iterative reconstruction, and/or weight based adjustment of the mA/kV was utilized to reduce the radiation dose to as low as reasonably achievable. COMPARISON: None HISTORY: ORDERING SYSTEM PROVIDED HISTORY: Reason for Exam: Dural venous sinus thrombosis suspected FINDINGS: CT HEAD: BRAIN/VENTRICLES: No acute intracranial hemorrhage or extraaxial fluid collection. Bernardo-white differentiation is maintained. No evidence of mass, mass effect or midline shift. No evidence of hydrocephalus. ORBITS: The visualized portion of the orbits demonstrate no acute abnormality. SINUSES: The visualized paranasal sinuses and mastoid air cells demonstrate no acute abnormality. SOFT TISSUES/SKULL: No acute abnormality of the visualized skull or soft tissues. CTA head: The right middle cerebral artery is patent. The left middle cerebral artery is patent. The right anterior cerebral artery is patent. The left anterior cerebral artery is patent. The bilateral distal vertebral arteries are patent. The basilar artery is patent. The right posterior cerebral artery is patent. The left posterior cerebral artery is patent. The left posterior communicating artery is patent. There is no aneurysm. CT VENOGRAM: The superior sagittal sinus, inferior sagittal sinus, straight sinus, transverse sinuses, and sigmoid sinuses are patent. No venous sinus significant stenosis. At the mid left transverse sinus, there is 0.4 cm filling defect compatible with arachnoid granulation. At the junction of the left sigmoid sinus and left internal jugular vein, there is a small linear hypodense filling defect, possibly nonobstructive thrombus versus contrast mixing artifact. IMPRESSION: 1. No acute intracranial abnormality. 2. Small linear hypodense filling defect at the junction of the left sigmoid sinus and left internal jugular vein, possibly nonobstructive thrombus versus contrast mixing artifact. 3. No evidence of venous sinus thrombosis on the remainder of the study. 4. Follow-up CT venogram study in 1 week would be useful for further evaluation. Interpreted by: Viet Lindquist Preliminary Report By: Viet Lindquist Electronically signed By Viet Lindquist Dictated Date: 01/19/2025 6:51:05 PM Prelim Date: 01/19/2025 7:09:33 PM Sign Date: 01/19/2025 7:09:33 PM Ordering Provider: CATRACHITA Pérez [facility] DIMERon 01-19-2025 D-Dimer 774 ng/mL D-DU High 0-230 [facility] Comment on above: Result Comment: Resu lts reported in D-DU ng/mL. Positive for D-dimer. A positive D-Dimer may occur in the following: DVT, PE, DIC, Trauma, Cancer, Sepsis, , Rheumatoid arthritis, Myocardial infarction and Cirrhosis. The presence of Rheumatoid Factor and HAMA (human mouse antibody) produces an overestimation of test results. The result of the D-Dimer test should be evaluated in the context of all the clinical and laboratory data available. In those instances where the laboratory result does not agree with the clinical evaluation, additional tests should be performed accordingly. If the D-Dimer result is used to exclude DVT or PE, the recommended cutoff value is less than 230 ng/mL. The D-Dimer result should not be used alone to rule in DVT/PE, but should be used in conjunction with a clinical pretest probability (PTP)assessment model to exclude venous thromboembolism (VTE) in patients suspected of deep venous thrombosis (DVT) and pulmonary embolism (PE). Performed By: #### C MP, ADIFF, GFR, ANEU, CBC #### [place] [address] LABORATORYOrdered By: SYSTEM SYSTEM on 01-19-2025 Albumin BCP dye [Mass/Vol] 3.5 G/dL Normal 3.5 - 5.0 G/dL AO ADM SS Albumin/Globulin [Mass ratio] 1.0 {ratio} Low 1.1 - 2.5 ratio AO ADM SS ALP [Catalytic activity/Vol] 94 U/L Normal 40 - 135 U/L AO ADM SS ALT With P-5'-P [Catalytic activity/Vol] 108 U/L High 16 - 63 U/L AO ADM SS AST With P-5'-P [Catalytic activity/Vol] 62 U/L High 10 - 40 U/L AO ADM SS Basophils (Bld) [#/Vol] 0.0 103/mcL Normal 0.0 - 0.3 10^3/mcL AO Workflow SS Basophils/100 WBC (Bld) 0.5 % Normal 0.0 - 2.5 % AO Workflow SS Bilirubin [Mass/Vol] 0.6 mg/dL Normal 0.2 - 1 .0 mg/dL AO ADM SS Comment on above: Interpretive Data: U se of this assay is not recommended for patients undergoing treatment with eltrombopag due to the potential for falsely elevated results. Calcium [Mass/Vol] 8.9 mg/dL Normal 8.4 - 10. 2 mg/dL AO ADM SS Chloride [Moles/Vol] 102 mmol/L Normal 98 - 10 7 mmol/L AO ADM SS CO2 [Moles/Vol] 24 mmol/L Normal 22 - 29 mmol/L AO ADM SS Creatinine [Mass/Vol] 0.86 mg/dL Normal 0.67 - 1.17 mg/dL AO ADM SS Electrolyte Balance 12.0 mEq/L Normal 4.0 - 15 .0 mEq/L AO ADM SS Eosinophil, Absolute 0.0 103/mcL Normal 0.0 - 0 .7 10^3/mcL AO Workflow SS Eosinophils/100 WBC (Bld) 0.6 % Normal 0.0 - 6.0 % AO Workflow SS Erythrocyte distribution width (RBC) [Ratio] 13.5 % Normal 11.5 - 15.5 % AO Workflow SS Estimated Glomerular Filtration Rate 103 ml/min/1.73sqm Invalid Interpretation Code AO Chemistry S Comment on above: Interpretive Data: Stages of Chronic Kidney Disease (CKD) Stage Description eGFR(ml/min/1.73 sq.m.) CKD 1 Normal kidney function or >=90 normal kindney function with possible kidney damage (ex. Proteinuria) CKD 2 Kidney damage with mild loss 60-89 of kidney function CKD 3a Mild to moderate loss of kidney 45-59 function CKD 3b Moderate to severe loss of 30-44 of kindey function CKD 4 Severe loss of kidney function 15-29 CKD 5 Kidney failure <15 Note: (go live 2024) the eGFR calculation was updated to the 2020 CKD-EPI creatinine equation without a race factor to calculate the eGFR results. Fibrin D-dimer DDU (PPP) [Mass/Vol] 774 ng/mL D-DU High 0 - 230 ng/mL D-DU AO [facility] SS Comment on above: Result Comment: Resu lts reported in D-DU ng/mL. Positive for D-dimer. A positive D-Dimer may occur in the following: DVT, PE, DIC, Trauma, Cancer, Sepsis, , Rheumatoid arthritis, Myocardial infarction and Cirrhosis. The presence of Rheumatoid Factor and HAMA (human mouse antibody) produces an overestimation of test results. Interpretive Data: T he result of the D-Dimer test should be evaluated in the context of all the clinical and laboratory data available. In those instances where the laboratory result does not agree with the clinical evaluation, additional tests should be performed accordingly. If the D-Dimer result is used to exclude DVT or PE, the recommended cutoff value is less than 230 ng/mL. The D-Dimer result should not be used alone to rule in DVT/PE, but should be used in conjunction with a clinical pretest probability (PTP)assessment model to exclude venous thromboembolism (VTE) in patients suspected of deep venous thrombosis (DVT) and pulmonary embolism (PE). Globulin 3.6 G/dL Normal 2.7 - 4.4 G/dL AO ADM SS Glucose [Mass/Vol] 107 mg/dL High 70 - 105 mg/dL AO ADM SS Hematocrit (Bld) [Volume fraction] 41.9 % Normal 40.0 - 52.0 % AO Workflow SS Hemoglobin (Bld) [Mass/Vol] 14.4 G/dL Normal 13.0 - 17.5 G/dL AO Workflow SS Lymphocytes (Bld) [#/Vol] 0.5 103/mcL Low 0.9 - 4.3 10^3/mcL AO Workflow SS Lymphocytes/100 WBC (Bld) 8.6 % Low 20.0 - 40.0 % AO Workflow SS MCH (RBC) [Entitic mass] 31.5 pg Normal 27.0 - 33.0 pg AO Workflow SS MCHC 34.3 G/dL Normal 32.0 - 36.0 G/dL AO Workflow SS MCV (RBC) [Entitic vol] 91.9 fL Normal 81.0 - 100.0 fL AO Workflow SS Monocytes (Bld) [#/Vol] 0.6 103/mcL Normal 0.1 - 1.4 10^3/mcL AO Workflow SS Monocytes/100 WBC (Bld) 9.5 % Normal 2.0 - 13.0 % AO Workflow SS Neutrophils (Bld) [#/Vol] 5.0 103/mcL Normal 2.3 - 8.1 10^3/mcL AO Workflow SS Neutrophils/100 WBC (Bld) 80.8 % High 50.0 - 75.0 % AO Workflow SS Platelet mean volume (Bld) [Entitic vol] 8.3 fL Normal 6.4 - 10.5 fL AO Workflow SS Platelets (Bld) [#/Vol] 220 103/mcL Normal 150 - 450 10^3/mcL AO Workflow SS Potassium [Moles/Vol] 4.4 mmol/L Normal 3.5 - 5.1 mmol/L AO ADM SS Protein [Mass/Vol] 7.1 G/dL Normal 6.4 - 8.2 G/dL AO ADM SS RBC (Bld) [#/Vol] 4.56 106/mcL Normal 4.50 - 6.0 0 10^6/mcL AO Workflow SS Sodium [Moles/Vol] 138 mmol/L Normal 136 - 145 mmol/L AO ADM SS Urea nitrogen [Mass/Vol] 14 mg/dL Normal 7 - 18 mg/dL AO ADM SS Urea nitrogen/Creatinine [Mass ratio] 16 ratio Normal 7 - 27 ratio AO ADM SS WBC (Bld) [#/Vol] 6.2 103/mcL Normal 4.5 - 10.8 10^3/mcL AO Workflow SS PSAon 07-08-2024 Prostate Specific Antigen 1.51 ng/mL Normal 0.00-4.00 [facility] Comment on above: Performed By: #### P SA #### [address] [address] .GFRon 07-07-2024 GFR 92 ml/min/1.73sqm Normal [facility] Comment on above: Result Comment: GFR Population mean for , Non- Americans Ages 20-29 = 116 mL/min/1.73 sq.m. Ages 30-39 = 107 mL/min/1.73 sq.m. Ages 40-49 = 99 mL/min/1.73 sq.m. Ages 50-59 = 93 mL/min/1.73 sq.m. Ages 60-69 = 85 mL/min/1.73 sq.m. Ages 70+ = 75 mL/min/1.73 sq.m. Chronic Kidney Disease: Less than 60 mL/min/1.73 square meters End Stage Renal Disease: Less than 15 mL/min/1.73 square meters Performed By: #### L IPID, CMP, GFR #### [address] [address] GFR Non- 76 ml/min/1.73sqm Normal [facility] Comment on above: Result Comment: GFR Population mean for , Non- Americans Ages 20-29 = 116 mL/min/1.73 sq.m. Ages 30-39 = 107 mL/min/1.73 sq.m. Ages 40-49 = 99 mL/min/1.73 sq.m. Ages 50-59 = 93 mL/min/1.73 sq.m. Ages 60-69 = 85 mL/min/1.73 sq.m. Ages 70+ = 75 mL/min/1.73 sq.m. Chronic Kidney Disease: Less than 60 mL/min/1.73 square meters End Stage Renal Disease: Less than 15 mL/min/1.73 square meters Performed By: #### L IPID, CMP, GFR #### [address] [address] CMPon 07-07-2024 Albumin Level 4.1 G/dL Normal 3.5-5.0 [facility] Comment on above: Performed By: #### L IPID, CMP, GFR #### [address] [address] Albumin/Globulin [Mass ratio] 1.5 {ratio} Normal 1.1-2.5 [facility] Comment on above: Performed By: #### L IPID, CMP, GFR #### [address] [address] ALP [Catalytic activity/Vol] 67 U/L Normal 40-135 [facility] Comment on above: Performed By: #### L IPID, CMP, GFR #### [address] [address] ALT [Catalytic activity/Vol] 34 U/L Normal 16-63 [facility] Comment on above: Performed By: #### L IPID, CMP, GFR #### [address] [address] AST [Catalytic activity/Vol] 19 U/L Normal 10-40 [facility] Comment on above: Performed By: #### L IPID, CMP, GFR #### [address] [address] Bili Total 0.7 mg/dL Normal 0.2-1.0 [facility] Comment on above: Result Comment: Use of this assay is not recommended for patients undergoing treatment with eltrombopag due to the potential for falsely elevated results. Performed By: #### L IPID, CMP, GFR #### [address] [place] [address] BUN/Creatinine Ratio 17 ratio Normal 7-27 [facility] Comment on above: Performed By: #### L IPID, CMP, GFR #### [address] [address] Calcium [Mass/Vol] 9.7 mg/dL Normal 8.4-10.2 [facility] Comment on above: Performed By: #### L IPID, CMP, GFR #### [address] [address] Chloride [Moles/Vol] 103 mmol/L Normal 98-107 [facility] Comment on above: Performed By: #### L IPID, CMP, GFR #### [place] [address] CO2 [Moles/Vol] 30 mmol/L High 22-29 [facility] Comment on above: Performed By: #### L IPID, CMP, GFR #### [address] [address] Creatinine [Mass/Vol] 1.03 mg/dL Normal 0.70-1.30 [facility] Comment on above: Result Comment: Test ing performed on Siemens Dimension EXL analyzer using a modified kinetic Atif technique. Performed By: #### L IPID, CMP, GFR #### [address] [address] Electrolyte Balance 7.0 mEq/L Normal 4.0-15.0 [facility] Comment on above: Performed By: #### L IPID, CMP, GFR #### [address] [address] Globulin 2.7 G/dL Normal [facility] Comment on above: Performed By: #### L IPID, CMP, GFR #### [address] [address] Glucose [Mass/Vol] 92 mg/dL Normal 70-105 [facility] Comment on above: Performed By: #### L IPID, CMP, GFR #### [address], [place] [address] Potassium [Moles/Vol] 4.1 mmol/L Normal 3.5-5.1 [facility] Comment on above: Performed By: #### L IPID, CMP, GFR #### [place] [address] [place], [place] [address] Sodium [Moles/Vol] 140 mmol/L Normal 136-145 [facility] Comment on above: Performed By: #### L IPID, CMP, GFR #### [place] [address] [place], [place] [address] Total Protein 6.8 G/dL Normal 6.4-8.2 [facility] Comment on above: Performed By: #### L IPID, CMP, GFR #### [place] [address] [place], [place] [address] Urea nitrogen [Mass/Vol] 17 mg/dL Normal 7-18 [facility] Comment on above: Performed By: #### L IPID, CMP, GFR #### [place] [address] [place], [place] [address] LABORATORYOrdered By: SYSTEM SYSTEM on 07-07-2024 Albumin BCP dye [Mass/Vol] 4.1 G/dL Normal 3.5 - 5.0 G/dL AO ADM SS Albumin/Globulin [Mass ratio] 1.5 {ratio} Normal 1.1 - 2.5 ratio AO ADM SS ALP [Catalytic activity/Vol] 67 U/L Normal 40 - 135 U/L AO ADM SS ALT With P-5'-P [Catalytic activity/Vol] 34 U/L Normal 16 - 63 U/L AO ADM SS AST With P-5'-P [Catalytic activity/Vol] 19 U/L Normal 10 - 40 U/L AO ADM SS Bilirubin [Mass/Vol] 0.7 mg/dL Normal 0.2 - 1 .0 mg/dL AO ADM SS Comment on above: Interpretive Data: U se of this assay is not recommended for patients undergoing treatment with eltrombopag due to the potential for falsely elevated results. Calcium [Mass/Vol] 9.7 mg/dL Normal 8.4 - 10. 2 mg/dL AO ADM SS Chloride [Moles/Vol] 103 mmol/L Normal 98 - 10 7 mmol/L AO ADM SS CO2 [Moles/Vol] 30 mmol/L High 22 - 29 mmol/L AO ADM SS Creatinine [Mass/Vol] 1.03 mg/dL Normal 0.70 - 1.30 mg/dL AO ADM SS Comment on above: Interpretive Data: T esting performed on Siemens Dimension EXL analyzer using a modified kinetic Atif technique. Electrolyte Balance 7.0 mEq/L Normal 4.0 - 15 .0 mEq/L AO ADM SS GFR/1.73 sq M.predicted among blacks MDRD (S/P/Bld) [Vol rate/Area] 92 ml/min/1.73sqm Invalid Interpretation Code AO Chemistry S Comment on above: Interpretive Data: GFR Population mean for , Non- Americans Ages 20-29 = 116 mL/min/1.73 sq.m. Ages 30-39 = 107 mL/min/1.73 sq.m. Ages 40-49 = 99 mL/min/1.73 sq.m. Ages 50-59 = 93 mL/min/1.73 sq.m. Ages 60-69 = 85 mL/min/1.73 sq.m. Ages 70+ = 75 mL/min/1.73 sq.m. Chronic Kidney Disease: Less than 60 mL/min/1.73 square meters End Stage Renal Disease: Less than 15 mL/min/1.73 square meters GFR/1.73 sq M.predicted among non-blacks MDRD (S/P/Bld) [Vol rate/Area] 76 ml/min/1.73sqm Invalid Interpretation Code AO Chemistry S Comment on above: Interpretive Data: GFR Population mean for , Non- Americans Ages 20-29 = 116 mL/min/1.73 sq.m. Ages 30-39 = 107 mL/min/1.73 sq.m. Ages 40-49 = 99 mL/min/1.73 sq.m. Ages 50-59 = 93 mL/min/1.73 sq.m. Ages 60-69 = 85 mL/min/1.73 sq.m. Ages 70+ = 75 mL/min/1.73 sq.m. Chronic Kidney Disease: Less than 60 mL/min/1.73 square meters End Stage Renal Disease: Less than 15 mL/min/1.73 square meters Globulin 2.7 G/dL Invalid Interpretation Code AO ADM SS Glucose [Mass/Vol] 92 mg/dL Normal 70 - 105 mg/dL AO ADM SS Potassium [Moles/Vol] 4.1 mmol/L Normal 3.5 - 5.1 mmol/L AO ADM SS Prostate specific Ag [Mass/Vol] 1.51 ng/mL Normal 0.00 - 4.00 ng/mL AO ADM SS Protein [Mass/Vol] 6.8 G/dL Normal 6.4 - 8.2 G/dL AO ADM SS Sodium [Moles/Vol] 140 mmol/L Normal 136 - 145 mmol/L AO ADM SS Urea nitrogen [Mass/Vol] 17 mg/dL Normal 7 - 18 mg/dL AO ADM SS Urea nitrogen/Creatinine [Mass ratio] 17 ratio Normal 7 - 27 ratio AO ADM SS LABORATORYOrdered By: Piero Jones on 07-07-2024 Cholesterol [Mass/Vol] 191 mg/dL Normal 0 - 200 mg/dL AO ADM SS Comment on above: Interpretive Data: C holesterol Reference Interval: Less than 200 Desirable 200-239 Borderline high risk 240 and above High risk Cholesterol in HDL [Mass/Vol] 55 mg/dL Normal 40 - 60 mg/dL AO ADM SS Cholesterol in LDL [Mass/Vol] 118 mg/dL Normal 0 - 130 mg/dL AO ADM SS Triglyceride [Mass/Vol] 91 mg/dL Normal 0 - 150 mg/dL AO ADM SS Comment on above: Interpretive Data: T riglyceride Reference Interval: Less than 150 Normal 150-199 Borderline high risk 200-499 High risk 500 or higher Very high risk LIPIDon 07-07-2024 Cholesterol [Mass/Vol] 191 mg/dL Normal 0-200 [facility] Comment on above: Result Comment: Chol esterol Reference Interval: Less than 200 Desirable 200-239 Borderline high risk 240 and above High risk Performed By: #### L IPID, CMP, GFR #### [address] [address] Cholesterol in HDL [Mass/Vol] 55 mg/dL Normal 40-60 [facility] Comment on above: Performed By: #### L IPID, CMP, GFR #### [address] [address] Cholesterol in LDL [Mass/Vol] 118 mg/dL Normal 0-130 [facility] Comment on above: Performed By: #### L IPID, CMP, GFR #### [place] [address] [place], [place] [address] Triglyceride [Mass/Vol] 91 mg/dL Normal 0-150 [facility] Comment on above: Result Comment: Trig lyceride Reference Interval: Less than 150 Normal 150-199 Borderline high risk 200-499 High risk 500 or higher Very high risk Performed By: #### L IPID, CMP, GFR #### [address] [address] .GFRon 11-30-2020 GFR Non- 85 ml/min/1.73sqm Normal [facility] ([place]) Comment on above: Result Comment: GFR Population mean for , Non- Americans Ages 20-29 = 116 mL/min/1.73 sq.m. Ages 30-39 = 107 mL/min/1.73 sq.m. Ages 40-49 = 99 mL/min/1.73 sq.m. Ages 50-59 = 93 mL/min/1.73 sq.m. Ages 60-69 = 85 mL/min/1.73 sq.m. Ages 70+ = 75 mL/min/1.73 sq.m. Chronic Kidney Disease: Less than 60 mL/min/1.73 square meters End Stage Renal Disease: Less than 15 mL/min/1.73 square meters Performed By: #### C MP, GFR, TSH, ADIFF, ANEU, LIPID, AFSHIN, RENIND, CBC #### [place] [address] [place], [place] [address] GFR 103 ml/min/1.73sqm Normal [facility] ([place]) Comment on above: Result Comment: GFR Population mean for , Non- Americans Ages 20-29 = 116 mL/min/1.73 sq.m. Ages 30-39 = 107 mL/min/1.73 sq.m. Ages 40-49 = 99 mL/min/1.73 sq.m. Ages 50-59 = 93 mL/min/1.73 sq.m. Ages 60-69 = 85 mL/min/1.73 sq.m. Ages 70+ = 75 mL/min/1.73 sq.m. Chronic Kidney Disease: Less than 60 mL/min/1.73 square meters End Stage Renal Disease: Less than 15 mL/min/1.73 square meters Performed By: #### C MP, GFR, TSH, ADIFF, ANEU, LIPID, AFSHIN, RENIND, CBC #### [address] [address] CMPon 11-30-2020 Albumin Level 3.8 G/dL Normal 3.5-5.0 [facility] ([place]) Comment on above: Performed By: #### C MP, GFR, TSH, ADIFF, ANEU, LIPID, AFSHIN, RENIND, CBC #### [address] [address] Albumin/Globulin [Mass ratio] 1.3 {ratio} Normal 1.1-2.5 [facility] ([place]) Comment on above: Performed By: #### C MP, GFR, TSH, ADIFF, ANEU, LIPID, AFSHIN, RENIND, CBC #### [address] [address] ALP [Catalytic activity/Vol] 63 U/L Normal 40-135 [facility] ([place]) Comment on above: Performed By: #### C MP, GFR, TSH, ADIFF, ANEU, LIPID, AFSHIN, RENIND, CBC #### [address] [address] ALT [Catalytic activity/Vol] 37 U/L Normal 16-63 [facility] ([place]) Comment on above: Performed By: #### C MP, GFR, TSH, ADIFF, ANEU, LIPID, AFSHIN, RENIND, CBC #### [address] [address] AST [Catalytic activity/Vol] 15 U/L Normal 10-40 [facility] ([place]) Comment on above: Performed By: #### C MP, GFR, TSH, ADIFF, ANEU, LIPID, AFSHIN, RENIND, CBC #### [address] [address] Bili Total 0.8 mg/dL Normal 0.2-1.0 [facility] ([place]) Comment on above: Result Comment: Use of this assay is not recommended for patients undergoing treatment with eltrombopag due to the potential for falsely elevated results. Performed By: #### C MP, GFR, TSH, ADIFF, ANEU, LIPID, AFSHIN, RENIND, CBC #### [address] [address] BUN/Creatinine Ratio 22 ratio Normal 7-27 [facility] ([place]) Comment on above: Performed By: #### C MP, GFR, TSH, ADIFF, ANEU, LIPID, AFSHIN, RENIND, CBC #### [place] [id number] Calcium [Mass/Vol] 8.7 mg/dL Normal 8.4-10.2 [facility] ([place]) Comment on above: Performed By: #### C MP, GFR, TSH, ADIFF, ANEU, LIPID, AFSHIN, RENIND, CBC #### [address] [address] Chloride [Moles/Vol] 105 mmol/L Normal 98-107 [facility] ([place]) Comment on above: Performed By: #### C MP, GFR, TSH, ADIFF, ANEU, LIPID, AFSHIN, RENIND, CBC #### [address] [address] CO2 [Moles/Vol] 28 mmol/L Normal 22-29 [facility] ([place]) Comment on above: Performed By: #### C MP, GFR, TSH, ADIFF, ANEU, LIPID, AFSHIN, RENIND, CBC #### [address] [address] Creatinine [Mass/Vol] 0.94 mg/dL Normal 0.70-1.30 [facility] ([place]) Comment on above: Performed By: #### C MP, GFR, TSH, ADIFF, ANEU, LIPID, AFSHIN, RENIND, CBC #### [address] [address] Electrolyte Balance 8.0 mEq/L Normal [facility] ([place]) Comment on above: Performed By: #### C MP, GFR, TSH, ADIFF, ANEU, LIPID, AFSHIN, RENIND, CBC #### [address] [address] Globulin 2.9 G/dL Normal [facility] ([place]) Comment on above: Performed By: #### C MP, GFR, TSH, ADIFF, ANEU, LIPID, AFSHIN, RENIND, CBC #### [address] [address] Glucose [Mass/Vol] 83 mg/dL Normal 70-105 [facility] ([place]) Comment on above: Performed By: #### C MP, GFR, TSH, ADIFF, ANEU, LIPID, AFSHIN, RENIND, CBC #### [address] [address] Potassium [Moles/Vol] 4.1 mmol/L Normal 3.5-5.1 [facility] ([place]) Comment on above: Performed By: #### C MP, GFR, TSH, ADIFF, ANEU, LIPID, AFSHIN, RENIND, CBC #### [address] [address] Sodium [Moles/Vol] 141 mmol/L Normal 136-145 [facility] ([place]) Comment on above: Performed By: #### C MP, GFR, TSH, ADIFF, ANEU, LIPID, AFSHIN, RENIND, CBC #### [address] [address] Total Protein 6.7 G/dL Normal 6.4-8.2 [facility] ([place]) Comment on above: Performed By: #### C MP, GFR, TSH, ADIFF, ANEU, LIPID, AFSHIN, RENIND, CBC #### [address] [address] Urea nitrogen [Mass/Vol] 21 mg/dL High 7-18 [facility] ([place]) Comment on above: Performed By: #### C MP, GFR, TSH, ADIFF, ANEU, LIPID, AFSHIN, RENIND, CBC #### [facility] [address] [place], [place] [address] LIPIDon 11-30-2020 Cholesterol [Mass/Vol] 202 mg/dL High 0-200 [facility] ([place]) Comment on above: Result Comment: Chol esterol Reference Interval: Less than 200 Desirable 200-239 Borderline high risk 240 and above High risk Performed By: #### C MP, LIPID, GFR #### [address] [address] Cholesterol in HDL [Mass/Vol] 51 mg/dL Normal 40-60 [facility] ([place]) Comment on above: Performed By: #### C MP, LIPID, GFR #### [address] [address] Cholesterol in LDL [Mass/Vol] 123 mg/dL Normal 0-130 [facility] ([place]) Comment on above: Performed By: #### C MP, LIPID, GFR #### [address] [address] Triglyceride [Mass/Vol] 139 mg/dL Normal 0-150 [facility] ([place]) Comment on above: Result Comment: Trig lyceride Reference Interval: Less than 150 Normal 150-199 Borderline high risk 200-499 High risk 500 or higher Very high risk Performed By: #### C MP, LIPID, GFR #### [address] [address] ALDOSon 06-03-2020 Aldosterone 19.5 ng/dL Normal 3.1-35.4 [facility] ([place]) Comment on above: Result Comment: Norm al serum levels of aldosterone are dependent on the sodium intake and whether the patient is upright or supine. High sodium intake will tend to suppress serum aldosterone, whereas low sodium intake will elevate serum aldosterone. The reference interval for serum aldosterone are based on a normal sodium intake. Supine reference range <23.1 ng/dL Performed By: [facility] [address] [place] [address] Formation Fracturing Operator: José Pang III, M.D. CLIA#: [id number] Phone#: Performed By: #### C MP, GFR, TSH, ADIFF, ANEU, LIPID, AFSHIN, RENIND, CBC #### [address] [address] RENINDon 06-03-2020 Direct Renin 18.6 pg/mL Normal [facility] ([place]) Comment on above: Result Comment: Theresa muller Reference Range, 41-99 years: Upright: 3.6-81.6 pg/mL Supine: 2.5-45.1 pg/mL Performed By: [facility] [address] [place] [address] Formation Fracturing Operator: Carlito Moreira III#: [id number] Phone#: Performed By: #### C MP, GFR, TSH, ADIFF, ANEU, LIPID, AFSHIN, RENIND, CBC #### [address] [address] .Auto Diffon 06-01-2020 Basophil, Absolute 0.00 10 3/mcL Normal 0.00-0.19 [facility] ([place]) Comment on above: Performed By: #### C MP, GFR, TSH, ADIFF, ANEU, LIPID, AFSHIN, RENIND, CBC #### [address] [address] Basophils/100 WBC (Bld) 0.8 % Normal 0.0-2.5 [facility] ([place]) Comment on above: Performed By: #### C MP, GFR, TSH, ADIFF, ANEU, LIPID, AFSHIN, RENIND, CBC #### [address] [address] Eosinophil, Absolute 0.30 10 3/mcL Normal 0.00-0.40 [facility] ([place]) Comment on above: Performed By: #### C MP, GFR, TSH, ADIFF, ANEU, LIPID, AFSHIN, RENIND, CBC #### [address] [address] Eosinophils/100 WBC (Bld) 4.9 % Normal 0.0-7.0 [facility] ([place]) Comment on above: Performed By: #### C MP, GFR, TSH, ADIFF, ANEU, LIPID, AFSHIN, RENIND, CBC #### [address] [address] Lymphocyte, Absolute 2.20 10 3/mcL Normal 0.77-3.85 [facility] ([place]) Comment on above: Performed By: #### C MP, GFR, TSH, ADIFF, ANEU, LIPID, AFSHIN, RENIND, CBC #### [address] [address] Lymphocytes/100 WBC (Bld) 38.4 % Normal 10.0-50.0 [facility] ([place]) Comment on above: Performed By: #### C MP, GFR, TSH, ADIFF, ANEU, LIPID, AFSHIN, RENIND, CBC #### [address] [address] Monocyte, Absolute 0.60 10 3/mcL Normal 0.15-1.00 [facility] ([place]) Comment on above: Performed By: #### C MP, GFR, TSH, ADIFF, ANEU, LIPID, AFSHIN, RENIND, CBC #### [address] [address] Monocytes/100 WBC (Bld) 9.9 % Normal 1.7-13.0 [facility] ([place]) Comment on above: Performed By: #### C MP, GFR, TSH, ADIFF, ANEU, LIPID, AFSHIN, RENIND, CBC #### [address] [address] Neutrophils/100 WBC (Bld) 46.0 % Normal 37.0-80.0 [facility] ([place]) Comment on above: Performed By: #### C MP, GFR, TSH, ADIFF, ANEU, LIPID, AFSHIN, RENIND, CBC #### [address] [address] .GFRon 06-01-2020 GFR Non- 60 ml/min/1.73sqm Normal [facility] ([place]) Comment on above: Result Comment: GFR Population mean for , Non- Americans Ages 20-29 = 116 mL/min/1.73 sq.m. Ages 30-39 = 107 mL/min/1.73 sq.m. Ages 40-49 = 99 mL/min/1.73 sq.m. Ages 50-59 = 93 mL/min/1.73 sq.m. Ages 60-69 = 85 mL/min/1.73 sq.m. Ages 70+ = 75 mL/min/1.73 sq.m. Chronic Kidney Disease: Less than 60 mL/min/1.73 square meters End Stage Renal Disease: Less than 15 mL/min/1.73 square meters Performed By: #### C MP, GFR, TSH, ADIFF, ANEU, LIPID, AFSHIN, RENIND, CBC #### [address] [address] GFR 73 ml/min/1.73sqm Normal [facility] ([place]) Comment on above: Result Comment: GFR Population mean for , Non- Americans Ages 20-29 = 116 mL/min/1.73 sq.m. Ages 30-39 = 107 mL/min/1.73 sq.m. Ages 40-49 = 99 mL/min/1.73 sq.m. Ages 50-59 = 93 mL/min/1.73 sq.m. Ages 60-69 = 85 mL/min/1.73 sq.m. Ages 70+ = 75 mL/min/1.73 sq.m. Chronic Kidney Disease: Less than 60 mL/min/1.73 square meters End Stage Renal Disease: Less than 15 mL/min/1.73 square meters Performed By: #### C MP, GFR, TSH, ADIFF, ANEU, LIPID, AFSHIN, RENIND, CBC #### [address] [address] .NEUABSon 06-01-2020 Neutrophil, Absolute 2.60 10 3/mcL Low 2.85-6.16 A [facility] ([place]) Comment on above: Performed By: #### C MP, GFR, TSH, ADIFF, ANEU, LIPID, AFSHIN, RENIND, CBC #### [address] [address] CBCon 06-01-2020 Erythrocyte distribution width (RBC) [Ratio] 13.2 % Normal 11.5-14.5 [facility] ([place]) Comment on above: Performed By: #### C MP, GFR, TSH, ADIFF, ANEU, LIPID, AFSHIN, RENIND, CBC #### [address] [address] Hematocrit (Bld) [Volume fraction] 44.7 % Normal 42.0-52.0 [facility] ([place]) Comment on above: Performed By: #### C MP, GFR, TSH, ADIFF, ANEU, LIPID, AFSHIN, RENIND, CBC #### [address] [address] Hgb 15.0 G/dL Normal 14.0-18.0 [facility] ([place]) Comment on above: Performed By: #### C MP, GFR, TSH, ADIFF, ANEU, LIPID, AFSHIN, RENIND, CBC #### [address] [address] MCH (RBC) [Entitic mass] 31.5 pg High 27.0-31.2 [facility] ([place]) Comment on above: Performed By: #### C MP, GFR, TSH, ADIFF, ANEU, LIPID, AFSHIN, RENIND, CBC #### [address] [address] MCHC 33.6 G/dL Normal 31.8-35.4 [facility] ([place]) Comment on above: Performed By: #### C MP, GFR, TSH, ADIFF, ANEU, LIPID, AFSHIN, RENIND, CBC #### [address] [address] MCV (RBC) [Entitic vol] 93.9 fL Normal 80.0-94.0 [facility] ([place]) Comment on above: Performed By: #### C MP, GFR, TSH, ADIFF, ANEU, LIPID, AFSHIN, RENIND, CBC #### [address] [address] Platelet 279 10 3/mcL Normal 130-400 [facility] ([place]) Comment on above: Performed By: #### C MP, GFR, TSH, ADIFF, ANEU, LIPID, AFSHIN, RENIND, CBC #### [place] [address] Platelet mean volume (Bld) [Entitic vol] 8.2 fL Normal 7.4-10.4 [facility] ([place]) Comment on above: Performed By: #### C MP, GFR, TSH, ADIFF, ANEU, LIPID, AFSHIN, RENIND, CBC #### [place] [address] RBC 4.76 10 6/mcL Normal 4.04-6.13 [facility] ([place]) Comment on above: Performed By: #### C MP, GFR, TSH, ADIFF, ANEU, LIPID, AFSHIN, RENIND, CBC #### [place] [address] WBC 5.60 10 3/mcL Normal 4.60-10.80 [facility] ([place]) Comment on above: Performed By: #### C MP, GFR, TSH, ADIFF, ANEU, LIPID, AFSHIN, RENIND, CBC #### [place] [address] CMPon 06-01-2020 Albumin Level 4.5 G/dL Normal 3.5-5.0 [facility] ([place]) Comment on above: Performed By: #### C MP, GFR, TSH, ADIFF, ANEU, LIPID, AFSHIN, RENIND, CBC #### [place] [address] Albumin/Globulin [Mass ratio] 1.6 {ratio} Normal 1.1-2.5 [facility] ([place]) Comment on above: Performed By: #### C MP, GFR, TSH, ADIFF, ANEU, LIPID, AFSHIN, RENIND, CBC #### [place] [address] ALP [Catalytic activity/Vol] 58 U/L Normal 40-135 [facility] ([place]) Comment on above: Performed By: #### C MP, GFR, TSH, ADIFF, ANEU, LIPID, AFSHIN, RENIND, CBC #### [address] [address] ALT [Catalytic activity/Vol] 27 U/L Normal 16-63 [facility] ([place]) Comment on above: Performed By: #### C MP, GFR, TSH, ADIFF, ANEU, LIPID, AFSHIN, RENIND, CBC #### [address] [address] AST [Catalytic activity/Vol] 18 U/L Normal 10-40 [facility] ([place]) Comment on above: Performed By: #### C MP, GFR, TSH, ADIFF, ANEU, LIPID, AFSHIN, RENIND, CBC #### [address] [address] Bili Total 1.1 mg/dL High 0.2-1.0 [facility] ([place]) Comment on above: Result Comment: Use of this assay is not recommended for patients undergoing treatment with eltrombopag due to the potential for falsely elevated results. Performed By: #### C MP, GFR, TSH, ADIFF, ANEU, LIPID, AFSHIN, RENIND, CBC #### [address] [address] BUN/Creatinine Ratio 17 ratio Normal 7-27 [facility] ([place]) Comment on above: Performed By: #### C MP, GFR, TSH, ADIFF, ANEU, LIPID, AFSHIN, RENIND, CBC #### [address] [address] Calcium [Mass/Vol] 9.8 mg/dL Normal 8.4-10.2 [facility] ([place]) Comment on above: Performed By: #### C MP, GFR, TSH, ADIFF, ANEU, LIPID, AFSHIN, RENIND, CBC #### [address] [address] Chloride [Moles/Vol] 105 mmol/L Normal 98-107 [facility] ([place]) Comment on above: Performed By: #### C MP, GFR, TSH, ADIFF, ANEU, LIPID, AFSHIN, RENIND, CBC #### [address] [address] CO2 [Moles/Vol] 29 mmol/L Normal 22-29 [facility] ([place]) Comment on above: Performed By: #### C MP, GFR, TSH, ADIFF, ANEU, LIPID, AFSHIN, RENIND, CBC #### [address] [address] Creatinine [Mass/Vol] 1.27 mg/dL Normal 0.70-1.30 [facility] ([place]) Comment on above: Performed By: #### C MP, GFR, TSH, ADIFF, ANEU, LIPID, AFSHIN, RENIND, CBC #### [address] [address] Electrolyte Balance 8.0 mEq/L Normal [facility] ([place]) Comment on above: Performed By: #### C MP, GFR, TSH, ADIFF, ANEU, LIPID, AFSHIN, RENIND, CBC #### [address] [address] Globulin 2.9 G/dL Normal [facility] ([place]) Comment on above: Performed By: #### C MP, GFR, TSH, ADIFF, ANEU, LIPID, AFSHIN, RENIND, CBC #### [address] [address] Glucose [Mass/Vol] 83 mg/dL Normal 70-105 [facility] ([place]) Comment on above: Performed By: #### C MP, GFR, TSH, ADIFF, ANEU, LIPID, AFSHIN, RENIND, CBC #### [address] [address] Potassium [Moles/Vol] 5.5 mmol/L High 3.5-5.1 [facility] ([place]) Comment on above: Performed By: #### C MP, GFR, TSH, ADIFF, ANEU, LIPID, AFSHIN, RENIND, CBC #### [address] [address] Sodium [Moles/Vol] 142 mmol/L Normal 136-145 [facility] ([place]) Comment on above: Performed By: #### C MP, GFR, TSH, ADIFF, ANEU, LIPID, AFSHIN, RENIND, CBC #### [address] [address] Total Protein 7.4 G/dL Normal 6.4-8.2 [facility] ([place]) Comment on above: Performed By: #### C MP, GFR, TSH, ADIFF, ANEU, LIPID, AFSHIN, RENIND, CBC #### [address] [address] Urea nitrogen [Mass/Vol] 22 mg/dL High 7-18 [facility] ([place]) Comment on above: Performed By: #### C MP, GFR, TSH, ADIFF, ANEU, LIPID, AFSHIN, RENIND, CBC #### [address] [address] LIPIDon 06-01-2020 Cholesterol [Mass/Vol] 231 mg/dL High 0-200 [facility] ([place]) Comment on above: Result Comment: Chol esterol Reference Interval: Less than 200 Desirable 200-239 Borderline high risk 240 and above High risk Performed By: #### C MP, GFR, TSH, ADIFF, ANEU, LIPID, AFSHIN, RENIND, CBC #### [address] [address] Cholesterol in HDL [Mass/Vol] 57 mg/dL Normal 40-60 [facility] ([place]) Comment on above: Performed By: #### C MP, GFR, TSH, ADIFF, ANEU, LIPID, AFSHIN, RENIND, CBC #### [address] [address] Cholesterol in LDL [Mass/Vol] 160 mg/dL High 0-130 [facility] ([place]) Comment on above: Performed By: #### C MP, GFR, TSH, ADIFF, ANEU, LIPID, AFSHIN, RENIND, CBC #### [address] [address] Triglyceride [Mass/Vol] 70 mg/dL Normal 0-150 [facility] ([place]) Comment on above: Result Comment: Trig lyceride Reference Interval: Less than 150 Normal 150-199 Borderline high risk 200-499 High risk 500 or higher Very high risk Performed By: #### C MP, GFR, TSH, ADIFF, ANEU, LIPID, AFSHIN, RENIND, CBC #### [place] [address] [place], [place] [address] TSHon 06-01-2020 TSH Qn 1.60 m[IU]/L Normal 0.36-3.74 [facility] ([place]) Comment on above: Performed By: #### C MP, GFR, TSH, ADIFF, ANEU, LIPID, AFSHIN, RENIND, CBC #### [place] [address] [place], [place] [address] NM MYOCARDIAL SPECT STRESS/R ESTon 05-27-2020 NM MYOCARDIAL SPECT STRESS/REST ORIGINAL NM MYOCARDIAL SPECT STRESS/REST CLINICAL STATEMENT: Abnormal EKG TECHNIQUE: Lexiscan dose:0.4 mg. Was initially performed as an exercise stress test but patient became hypotensive with systolic in 250 and patient was switched to Lexiscan study. Radiopharmaceutical (stress): Tc-99m Sestamibi Dose:31.6 mCi Radiopharmaceutical (rest): Tc-99m Sestamibi Dose:10.4 mCi SPECT acquisition and processing Reconstruction and reorientation of SPECT images into short axis, vertical and horizontal long axis planes Quantitative LVEF assessment COMPARISON:None REPORT:Rotating planar images do not demonstrate any significant patient motion. There is subdiaphragmatic tracer activity adjacent to inferior wall in rest images. SPECT perfusion images demonstrate decreased tracer uptake in inferior wall in both stress and rest images suggestive of diaphragmatic attenuation. T.I.D ratio within normal limits. Gated SPECT images demonstrate basal hypokinesis. End-diastolic volume is 139 mL. Ejection fraction is 55%. IMPRESSION: 1. Technically difficult study. 2. No evidence of reversible ischemia. Possible infarction involving basal inferior wall without any significant marcio-infarct ischemia. 3. Diaphragmatic attenuation artifact. 4. Possible basal inferior hypokinesis. Normal systolic function with ejection fraction of 55%. 5. No prior studies for comparison. Interpreted By: Saumya Rea MD Preliminary Report By: Saumya Rea MD Electronically Signed By: Saumya Rea MD Dictated Date: 05/27/2020 11:31:33 AM Prelim Date: 05/27/2020 11:31:33 AM Sign Date: 05/27/2020 11:32:53 AM Ordering Provider:Yung Pérez [facility] ([place]) Encounters Encounter Date Encounter Type Care Provider Facility Start: 02-02-2025 End: 02-06-2025 ambulatory YUNG CLIFFORD MD Facility:[facility] Start: 02-02-2025 End: 02-06-2025 Encounter for general adult medical examination without abnormal findings DR ESTELLA MORRISON DO Facility:[facility] Start: 02-02-2025 End: 02-06-[address] ESTELLA MORRISON DO [facility] Start: 01-23-2025 ambulatory Estella Morrison Facility:[facility] Start: 01-20-2025 End: 01-20-[address] Estella Morrison DO Work Phone: [facility] Work Phone: Start: 01-20-2025 End: 01-20-[address] Estella Morrison DO -[facility] Work Phone: Start: 01-19-2025 End: 01-19-2025 Emergency department patient visit JARED MEDLEY MD [facility] Start: 01-19-2025 End: 01-23-2025 ambulatory Estella Morrison Facility:[facility] Start: 01-19-2025 End: 01-23-[address] ESTELLA MORRISON DO [facility] Start: 07-07-2024 End: 07-11-2024 ambulatory AMBER RILEY VP [employer]ION[employer] Facility:[facility] Start: 07-07-2024 End: 07-11-2024 Outreach Lab AMBER RILEY VP S[employer]-BEHAVIOR INTERVENTIONIST [facility] Start: 07-07-2024 End: 07-11-2024 ambulatory YUNG CLIFFORD MD Facility:[facility] Start: 07-07-2024 End: 07-11-[address] ESTELLA MORRISON DO [facility] Start: 05-28-2020 End: 05-28-2020 Orders Only Horace () Natalya Work Phone: [facility] Comment on above: Primary hypertension (Primary Dx) Procedures Date Procedure Procedure Detail Performing Clinician Start: 01-20-2025 MRI of brain with contrast Dr. Estella Morrison DO Work Phone: Start: 05-24-2020 Echocardiography AMBER [employer] Comment on above: EF 55-60% Start: 05-13-2020 Cardiovascular stres s testing [facility] [employer] Plan of Treatment Date Care Activity Detail Author Start: 04-13-2020 Influenza vaccination INFLUENZA (#1) [facility] Start: 2015 DIABETES SCREEN DIABETES SCREEN [facility] Start: 2005 LIPID SCREEN LIPID SCREEN [facility] Start: 1989 Urine microalbumin profile DTAP,TDAP,TD (1 - Tdap) [facility] Start: 1988 HEPATITIS C SCREENING HEPATITIS C [facility] Start: 1988 HIV SCREENING HIV SCREENING [facility] End: 05-28-2021 ECG COMPLETE ECG COMPLETE ECG Routine Primary hypertension 1 Occurrences starting 05/28/2020 until 05/28/2021 [facility] Comment on above: 1 Occurrences starti ng 05/28/2020 until 05/28/2021 [facility] Immunizations Immunization Date Immunization Notes Care Provider Dilshad felix 07-18-2024 influenza, injectabl e, quadrivalent, contains preservative; Translations: [Fluarix PF Prefilled Syringe ] JARED MEDLEY MD [facility] [place] 10-28-2020 SARS-CoV-2 (COVID-19 ) mRNA-1273 vaccine AMBER ROSEMARY VP [employer]BEHAVIOR INTERVENTIONIST [facility] Comment on above: Result Comment: 2020: [id number] 08-22-2019 influenza virus vaccine, unspecified formulation AMBER ROSEMARY VP [employer]IOR INTERVENTIONIST [facility] 08-11-2018 influenza virus vaccine, unspecified formulation AMBER ROSEMARY VP [employer]BEHAVIOR INTERVENTIONIST [facility] 02-03-2014 tetanus toxoid, reduced diphtheria toxoid, and acellular pertussis vaccine, adsorbed AMBER ROSEMARY VP [employer]IOR INTERVENTION[facility] Payers Date Payer Category Payer Unknown [id number] 2024 Self-pay [id number] 2024 Unknown [id number] 2024 Private Health Insurance [id number] 2019 Unknown CINDY CASEY PPO [id number] 2019-Present PPO [id number] 1970 Unknown [id number] 1970 Unknown [id number] 1970 Unknown [id number] 1970 Unknown [id number] 1970 Unknown [id number] Unknown [id number] Social History Date Type Detail Facility Tobacco smoking stat [facility] Unknown if ever smoked [facility] Sex Assigned At Not on file [facility] Start: 05-19-2020 Tobacco smoking status Never s moked tobacco (finding) [facility] Start: 1970 Sex Assigned At Male [facility] Sexual Orientation [facility] Start: 02-05-2019 Sex Male (finding) [facility] Tobacco smoking stat [facility] Unknown if ever smoked [facility] Work Phone: Clinical Notes 07-07-2024 to 01-19-2025 Note Date & Type Note Facility 01-19-2025 Hospital Discharg e instructions Patient Education 01/19/2025 19:25:01 Headache, Unspecified Headache, Unspecified A number of things can cause headaches. The cause of your headache isn t clear. But it doesn t seem to be a sign of any serious illness. Headache affects almost everyone at some time. It is the most common reason people miss days from work or school. You could have a tension headache or a migraine headache. Stress can cause a tension headache. This can happen if you tense the muscles of your shoulders, neck, and scalp without knowing it. If this stress lasts long enough, you may develop a tension headache. It is not clear why migraines occur, but certain things called triggers can raise the risk of having a migraine attack. Migraine triggers may include emotional stress or depression, or by hormone changes during the menstrual cycle. Other triggers include control pills and other medicines, alcohol or caffeine, foods with tyramine (such as aged cheese, wine), eyestrain, weather changes, missed meals, and lack of sleep or oversleeping. Other causes of headache include: Viral illness with high fever Head injury with concussion Sinus, ear, or throat infection Dental pain and jaw joint (TMJ) pain More serious but less common causes of headache include stroke, brain hemorrhage, brain tumor, meningitis, and encephalitis. Home care Follow these tips when taking care of yourself at home: Don t drive yourself home if you were given pain medicine for your headache. Instead, have someone else drive you home. Try to sleep when you get home. You should feel much better when you wake up. Apply heat to the back of your neck to ease a neck muscle spasm. Take care of a migraine headache by putting an ice pack on your forehead or at the base of your skull. If you have nausea or vomiting, eat a light diet until your headache eases. If you have a migraine headache, use sunglasses when in the daylight or around bright indoor lighting until your symptoms get better. Bright glaring light can make this type of headache worse. Follow-up care Follow up with your healthcare provider, or as advised. Talk with your provider if you have frequent headaches. He or she can help figure out a treatment plan. By knowing the earliest signs of headache, and starting treatment right away, you may be able to stop the pain yourself. When to seek medical advice Call your healthcare provider right away if any of these occur: Your head pain suddenly gets worse after sexual intercourse or strenuous activity Your head pain doesn t get better within 24 hours You aren t able to keep liquids down (repeated vomiting) Fever of 100.4 F (38 C) or higher, or as directed by your healthcare provider Stiff neck Extreme drowsiness, confusion, or fainting Dizziness or dizziness with spinning sensation (vertigo) Weakness in an arm or leg or one side of your face You have trouble talking or seeing [id number] [employer]. [address] [place] [address]677. All rights reserved. This information is not intended as a substitute for professional medical care. Always follow your healthcare professional's instructions. Follow Up Care 01/19/2025 16:55:59 With:ESTELLA MORRISON DO Address: [address] [facility] [place] [phone] When:2-4 days [facility] 01-19-2025 Note Discharge Instructions Thank you for allowing [place] to assist you with your healthcare needs. The following is important discharge information regarding your hospital visit. Diagnosis from Today's Visit Headache What to Do Next Instructions from Your Care Team No qualifying data available. Post Acute Orders No qualifying data available. You Need to Schedule the Following Appointments Follow Up with ESTELLA MORRISON DO When:Within 2-4 days Where:[address] [facility] [place] [address]- [phone] Allergies amoxicillin Rash sulfa rash Medications Please ask your primary doctor or pharmacist before taking any other medication not listed, including over the counter drugs, herbal medications, vitamins and or supplements as they may interact with your home medications. What How Much When Why Instructions Last Dose Unchanged ergocalciferol (Vitamin D2) by mouth Once a day Unchanged herbal/ nutritional product (Probiotic) Unchanged tiZANidine (tiZANidine 4 mg oral tablet) 1 tab(s) by mouth Every 8 hours Neck pain on right side Please take this list to your next doctor s visit. Bring all medications you take, including over the counter medications, herbals and other supplements with you to your doctor s visit. Patients and families are reminded to discard old lists and to update any records with all medication providers or retail pharmacies. Education Materials Headache, Unspecified A number of things can cause headaches. The cause of your headache isn t clear. But it doesn t seem to be a sign of any serious illness. Headache affects almost everyone at some time. It is the most common reason people miss days from work or school. You could have a tension headache or a migraine headache. Stress can cause a tension headache. This can happen if you tense the muscles of your shoulders, neck, and scalp without knowing it. If this stress lasts long enough, you may develop a tension headache. It is not clear why migraines occur, but certain things called triggers can raise the risk of having a migraine attack. Migraine triggers may include emotional stress or depression, or by hormone changes during the menstrual cycle. Other triggers include control pills and other medicines, alcohol or caffeine, foods with tyramine (such as aged cheese, wine), eyestrain, weather changes, missed meals, and lack of sleep or oversleeping. Other causes of headache include: Viral illness with high fever Head injury with concussion Sinus, ear, or throat infection Dental pain and jaw joint (TMJ) pain More serious but less common causes of headache include stroke, brain hemorrhage, brain tumor, meningitis, and encephalitis. Home care Follow these tips when taking care of yourself at home: Don t drive yourself home if you were given pain medicine for your headache. Instead, have someone else drive you home. Try to sleep when you get home. You should feel much better when you wake up. Apply heat to the back of your neck to ease a neck muscle spasm. Take care of a migraine headache by putting an ice pack on your forehead or at the base of your skull. If you have nausea or vomiting, eat a light diet until your headache eases. If you have a migraine headache, use sunglasses when in the daylight or around bright indoor lighting until your symptoms get better. Bright glaring light can make this type of headache worse. Follow-up care Follow up with your healthcare provider, or as advised. Talk with your provider if you have frequent headaches. He or she can help figure out a treatment plan. By knowing the earliest signs of headache, and starting treatment right away, you may be able to stop the pain yourself. When to seek medical advice Call your healthcare provider right away if any of these occur: Your head pain suddenly gets worse after sexual intercourse or strenuous activity Your head pain doesn t get better within 24 hours You aren t able to keep liquids down (repeated vomiting) Fever of 100.4 F (38 C) or higher, or as directed by your healthcare provider Stiff neck Extreme drowsiness, confusion, or fainting Dizziness or dizziness with spinning sensation (vertigo) Weakness in an arm or leg or one side of your face You have trouble talking or seeing [id number] [employer]. [address] [place] [address] 97554. All rights reserved. This information is not intended as a substitute for professional medical care. Always follow your healthcare professional's instructions. Additional Information VACCINATE! IT SAVES LIVES! Members of the community who have not yet received the COVID-19 vaccine and would like to receive it can visit one of [facility] vaccine clinics. There are many vaccine clinic locations within the [facility]. For locations and available times, please visit [email or web address].[place]. [email or web address] It is important to note that some COVID mobile vaccine clinics are held outdoors and may be canceled in rainy or stormy conditions. To learn more about pediatric vaccinations (ages 5-11), we invite you to visit the [facility] webpage. https://www.[facility].org/p ages/4559-Ihfbx-Imxhnembanq-Freq qezukz-Jadym-Ufhixivco.html To learn more about the COVID-19 vaccine, we invite you to visit the CDC website for a list of frequently asked questions. https://www.cdc.gov/coronavirus/ 2019-ncov/vaccines/faq.html [employer] Patient Portal Access Instructions: Stay connected with your healthcare team and access your personal medical information anytime with the [employer] Patient Portal. If you would like a full copy of your medical records please contact the [facility] Medical Records Department Sunday through Sunday between 8a.m. and 4:30p.m. Please follow the directions below to access the portal: 1.Access the email account you provided upon registration to the [facility].2.Look for an invitation email from [facility].3.Open the email and access the invitation link: Accept Invitation to [employer]4.Fill in the required padgett to create your account. Sign into www.[employer] with your username and password that you created in the above steps to stay up to date. You can then view a summary of results, a summary of your visits, and the ability to download your summaries to your computer or send the information securely to a physician. Remember that your healthcare information is confidential, so carefully consider who you will allow to register on the [employer] Patient Portal for access to your information. You can also access the [employer] Patient Portal on the [employer]. Simply click on Health Records under Health Data and then click on the [employer] logo. HOW TO SAFELY DISPOSE OF PRESCRIPTION MEDICATIONS Please use one of the following methods to safely dispose of your unused medications. 1.Use a drug disposal kit: the drug disposal pouch allows you to safely discard your old and unused drugs. Ask your nurse to give you one when you are discharged.2.Visit a local take-back location: Many local pharmacies and police departments have programs that collect old and unwanted prescription drugs. Call your local pharmacy or go to http://kendall/4J0Kk2d to find one close to you.3.Make use of household items: Use cat litter or old coffee grounds to dispose medications if other options are not available. Mix your drugs with these household products, seal them in an airtight container and throw it into the garbage. Call [facility]: [phone] to be sure your drugs can be disposed of in this way. Some medicines may require a different approach.4.Never flush your medications down the toilet. IF YOU HAVE BEEN PRESCRIBED AN OPIOIDS FOR PAIN If you have been prescribed an opioid (such as hydrocodone, oxycodone or morphine), it is critical to understand the possible side effects and risks of opioid pain medications. Even when taken as directed, opioids can have several side effects including: Tolerance, meaning you might need to take more of a medication for the same pain relief. Nausea, vomiting and/or constipation. Sleepiness, dizziness, dry mouth, confusion, depression or itching. Physical dependence, meaning you have withdrawal symptoms when a medication is stopped ? this can develop within a few days. KNOW YOUR RESPONSIBILITIES It is important to know exactly how much and how often to take the opioid pain medications you are prescribed. Never take opioids in higher amounts or more often than prescribed. Do not combine opioids with alcohol or other drugs that cause drowsiness, such as benzodiazepines, also known as benzos, including diazepam and alprazolam, muscle relaxants or sleep aids. Never sell or share prescription opioids. This is illegal. Store opioids in a secure place and out of reach of others (including children, family, friends and visitors). The last page(s) of this document has been signed and retained as a CHART COPY Signatures Patient Education Materials Headache, Unspecified Medication Leaflets My discharge plan and instructions have been reviewed and explained to me and IJACOBO ALAN S understand my current condition and have read and understand these discharge instructions. I have received a written copy of the plan/instructions. If I have questions, I am aware that I should contact my doctor. 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 Multiplanar reformatted images are provided for review. MIP images are provided for review. Automated exposure control, iterative reconstruction, and/or weight based adjustment of the mA/kV was utilized to reduce the radiation dose to as low as reasonably achievable. COMPARISON: None HISTORY: ORDERING SYSTEM PROVIDED HISTORY: Reason for Exam: Dural venous sinus thrombosis suspected FINDINGS: CT HEAD: BRAIN/VENTRICLES: No acute intracranial hemorrhage or extraaxial fluid collection. Bernardo-white differentiation is maintained. No evidence of mass, mass effect or midline shift. No evidence of hydrocephalus. ORBITS: The visualized portion of the orbits demonstrate no acute abnormality. SINUSES: The visualized paranasal sinuses and mastoid air cells demonstrate no acute abnormality. SOFT TISSUES/SKULL: No acute abnormality of the visualized skull or soft tissues. CTA head: The right middle cerebral artery is patent. The left middle cerebral artery is patent. The right anterior cerebral artery is patent. The left anterior cerebral artery is patent. The bilateral distal vertebral arteries are patent. The basilar artery is patent. The right posterior cerebral artery is patent. The left posterior cerebral artery is patent. The left posterior communicating artery is patent. There is no aneurysm. CT VENOGRAM: The superior sagittal sinus, inferior sagittal sinus, straight sinus, transverse sinuses, and sigmoid sinuses are patent. No venous sinus significant stenosis. At the mid left transverse sinus, there is 0.4 cm filling defect compatible with arachnoid granulation. At the junction of the left sigmoid sinus and left internal jugular vein, there is a small linear hypodense filling defect, possibly nonobstructive thrombus versus contrast mixing artifact. IMPRESSION: 1. No acute intracranial abnormality. 2. Small linear hypodense filling defect at the junction of the left sigmoid sinus and left internal jugular vein, possibly nonobstructive thrombus versus contrast mixing artifact. 3. No evidence of venous sinus thrombosis on the remainder of the study. 4. Follow-up CT venogram study in 1 week would be useful for further evaluation. Interpreted by: Viet Lindquist Preliminary Report By: Viet Lindquist Electronically signed By Viet Lindquist Dictated Date: 01/19/2025 6:51:05 PM Prelim Date: 01/19/2025 7:09:33 PM Sign Date: 01/19/2025 7:09:33 PM Ordering Provider: CATRACHITA BULLOCK [facility]06-09-2025 Evaluation + Plan note Future Scheduled Tests Radiology* MRI Brain w/ + w/o Contrast 01/19/25 * XR Spine Cervical AP/LAT 01/19/25 [facility] 11-25-2024 Evaluation + Plan note Future Scheduled Tests Laboratory* Complete Blood Count 07/07/24 Radiology* MRI Brain w/ + w/o Contrast 01/19/25 * XR Spine Cervical AP/LAT 01/19/25 [facility] Evaluation + Plan note Future Appointments Appointment Date:07/18/2024 09:00:00 AM Scheduled Provider:YUNG CLIFFORD MD Location:[facility] Appointment Type:PC Wellness Annual Future Scheduled Tests Laboratory* Complete Blood Count 07/07/24 [facility] Evaluation + Plan note Future Appointments Appointment Date:02/02/2025 08:15:00 AM Scheduled Provider: Location:[facility] Appointment Type:PC Nurse Lab Future Scheduled Tests Laboratory* Complete Blood Count 07/07/24 * Complete Metabolic Panel 01/22/25 Radiology* MRI Brain w/ + w/o Contrast 01/19/25 * XR Spine Cervical AP/LAT 01/19/25 [facility] Evaluation noteNo assessment information available [facility] Work Phone: Hospital course Narrative No data available for this section [facility] Hospital Discharge instructions No data available for this section [facility] Progress note No data available for this section [facility] Reason for referral (narrative)No reason for referral information availableWLake [facility] Work Phone: Assessments Diagnosis Primary hypertension- Primary Unspecified essential hypertension Summary Purpose Family History No Family History Records Found No data available for this section No data available for this section No data available for this section No data available for this section No Family History Records Found No data available for this section No Family History Records Found Advance Directives No Advanced Directives Records FoundNo Advanced Directives Records FoundNo Advanced Directives Records Found Chief Complaint and Reason for Visit Chief Complaint Admit Date NEW ONSET HEADACHE January 20, 2025 10:0 6am Additional Source Comments Source Comments (unrecognize d section and content) In the event this informatio n is protected by the Federal Confidentiality of Alcohol and Drug Abuse Patient Records regulations: The Federal rules restrict any use of the information to criminally investigate or prosecute any alcohol or drug abuse patient.[facility] (unrecognized sect ion and content) No Status Records FoundNo Status Records FoundNo Status Records Found INFORMATION SOURCE (unrecogn ized section and content) DATE CREATED AUTHOR 12/02/2020 [facility] ([place]) DATE CREATED AUTHOR AUTHOR'S ORGANIZ ATION 01/30/2025 [facility] DATE CREATED AUTHOR AUTHOR'S ORGANIZ ATION 02/08/2025 [facility] Patient Care team informatio n (unrecognized section and content) Team Status: Active Member Role Status Dates Dr. Yung Clifford MD Primary Care Provider Active Team Status: Inactive Member Role Status Dates Dr. Estella Morrison DO Attending Provider Active Start: January 20, 2025 End: January 20, 2025 Dr. Estella Morrison DO Referring Provider Active Start: January 20, 2025 End: January 20, 2025 Dr. Yung Clifford MD Primary Care Provider Active Start: January 20, 2025 End: January 20, 2025 Goals (unrecognized section and content) Goals may be documented in a n alternate section FOR RECORDS PERTAINING TO PATIENTS WHO ARE OR HAVE BEEN ENROLLED IN A CHEMICAL DEPENDENCY/SUBSTANCEABUSE PROGRAM, SOME INFORMATION MAY BE OMITTED. This clinical summary was aggregated from multiple sources. Caution should be exercised in using it in the provision of clinical care. This summary normalizes information from multiple sources, and as a consequence, information in this document may materially change the coding, format and clinical context of patient data. In addition, data may be omitted in some cases. CLINICAL DECISIONS SHOULD BE BASED ON THE PRIMARY CLINICAL RECORDS. [facility]. provides no warranty or guarantee of the accuracy or completeness of information in this document.
--- NOTE | 2025-02-08 10:45 | RAD_ITS ---
PROCEDURE: CHEST 1 VIEW (PORTABLE) 02/08/2025 REASON FOR EXAM: CHEST PAIN TECHNIQUE: Frontal view of the chest. COMPARISON: None. FINDINGS: Hardware: None. Heart: Mild cardiomegaly with prominent vascular markings. Lungs: No focal consolidation, pleural effusion or pneumothorax. Bones: The bones are unremarkable. RAD/Chest 1 View (Portable) IMPRESSION: Cardiomegaly. No acute findings. Reading Location: [id number]
[2025-02-08 10:52] LABS: D-Dimer Quantitative (DVT/PE) 0.61 FEU/ug/m (0.27-0.49)
--- NOTE | 2025-02-08 10:56 | CT_ITS ---
PROCEDURE: CTA CHEST W/WO CONTRAST 02/08/2025 REASON FOR EXAM: ELEVATED D-DIMER TECHNIQUE: CTA axial imaging of the chest with intravenous contrast. Coronal and Sagittal reconstruction series were provided. 3D, 3D post processing, 3D reconstructions, Maximum intensity projection (MIPs) Volume rendering and Shaded surface rendering was provided. PATIENT PREPARATION: Per protocol CONTRAST: Isovue 370 VOLUME: 100mL One or more dose reduction techniques were used (e.g., Automated exposure control, adjustment of the mA and/or kV according to patient size, use of iterative reconstruction technique). RADIATION DOSE SUMMARY: DLP: 530 mGycm COMPARISON: Same day chest radiograph. FINDINGS: Hardware: None. Lymph nodes: No axillary, mediastinal or hilar lymphadenopathy. Heart: The heart is normal in size without pericardial effusion. No significant coronary artery or thoracic aortic calcifications. The great vessels are normal in caliber. Pulmonary Vessels: Visualization is slightly limited by timing of contrast bolus. No central filling defect in the segmental pulmonary arteries. Lungs and Airways: The central airways are patent. No suspicious pulmonary mass or nodule. No pleural effusion or pneumothorax. Upper Abdomen: Visualized portions of the upper abdominal viscera are unremarkable. Bones: Bone windows are unremarkable. CT/CTA Chest W/WO Contrast IMPRESSION: NORMAL CHEST CTA. NO EVIDENCE OF ACUTE PULMONARY EMBOLISM. Reading Location: [id number]
[2025-02-08 10:58] LABS: Anion Gap 13 (5-15); BUN 26 mg/dL (4-19); BUN/Creat Ratio 25.5 RATIO (10-20); Calcium,Total 9.5 mg/dL (7.6-11.0); Carbon Dioxide 23.0 mmol/L (21.0-32.0); Chloride 102 mmol/L (98-108); Estimated Creatinine Clearance 96.44 ml/min (50-250); Glucose 111 mg/dL (70-99); Potassium 4.2 mmol/L (3.3-5.1)
[2025-02-08 11:01] LABS: Troponin T High Sensitivity 21 ng/L (<=22)
--- NOTE | 2025-02-08 11:11 | EKG12_ITS ---
Test Reason : PALPITATIONS Blood Pressure : */* mmHG Vent. Rate : 138 BPM Atrial Rate : 337 BPM P-R Int : * ms QRS Dur : 96 ms QT Int : 332 ms P-R-T Axes : * 51 4 degrees QTcB Int : 502 ms Critical Test Result: STEMI Atrial flutter with variable A-V block Incomplete right bundle branch block Inferior infarct , age undetermined Confirmed by ADDIE OLIVAREZ, ULYSSES ([id number]), editor continuity and script YANDEL CALVIN ([id number]) on 02/10/2025 6:33:49 AM Referred By: Confirmed By: ULYSSES REAL MD
[2025-02-08 11:36] LABS: Mucous, Urine 0 SEEN /hpf (<or=2+); Red Blood Cells-Urine 0 SEEN /hpf (0-5); Squamous Epithelial Cells - UA 0 SEEN /hpf (0-5)
[2025-02-08 11:46] LABS: Color, Urine Yellow (Yellow); Glucose, Dipstick Normal (Normal); Ketone-Dipstick Negative (Negative); Leukocyte Esterase-Dipstick Negative /ul (Negative); Nitrite-Dipstick Negative (Negative); Occult Blood-Urine Negative /ul (Negative); Protein-Dipstick 15 mg/dl (Negative); Specific Gravity, Urine 1.015 (1.002-1.030); Urine Bilirubin Dipstick Negative (Negative)
[2025-02-08 12:55] LABS: Troponin T High Sens 2 HR 19 ng/L (<=22)
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
[2025-02-08] MEDS: Diltiazem 125 MG in Dextrose 5%-Water (100mL Bag) 100 ML IV (13:47)
[2025-02-08 13:52] LABS: AST(SGOT) 16 U/L (<=37); Alanine Aminotransfer ALT/SGPT 20 U/L (<=46); Albumin, Serum 3.5 g/dL (3.5-5.0); Alkaline Phosphatase 64 U/L (40-129); Bilirubin, Direct 0.15 mg/dL (0.00-0.30); Globulin 2.9 g/dL (2.2-4.2); Magnesium 2.1 mg/dL (1.5-2.2)
--- OUTSIDE RECORDS SUMMARY | 2025-02-08 13:53 | XMS RPT_ITS | CCD ---
Author Organization [facility] Inform ion Partnership [facility] Care Team Providers Care Hardboard Supervisor Name Role Phone Unavailable Primary Care Provider Joi CLIFFORD MD, YUNG Tello Primary Care Physician Russell DURHAM, Dr. Armenta Attending Provider [phone] Russell DURHAM, Dr. Armenta Referring Provider [phone] Dr. Yung Clifford MD Primary Care Provider Estella Morrison Referring Unavailable Yung Clifford Primary Care Unavailable Estella Morrison Attending Unavailable Estella Morrison Referring Unavailable Estella Morrison Attending YUNG Diaz MD Primary Care Unavailable CATRACHITA BULLOCK DO Attending YUNG iDaz MD Primary Care Unavailable RUSSELL DO, DR ESTELLA Wagner Attending YUNG Dodd MD Primary Care Unavailable RUSSELL , DR ESTELLA Wagner Attending YUNG Dodd MD Primary Care Unavailable RUSSELL , DR ESTELLA Wagner Attending Joi RILEY BUILDING ECONOMIST-OVERLAY OPERATOR, AMBER Attending YUNG Nichols MD Primary Care Unavailable Allergies Allergy Classification Reported Allergen(s) Allergy Type Date of Onset Reaction(s) Facility (5 sources) Amoxicillin; Translations: [amoxicillin] Drug Allergy [facility] Sulfonamide; Translations: [sulfa drugs] Drug allergy rash [facility] Medications Current Medications Medication Drug Class(es) [...] q8h, # 30 tab(s), 0 Refill(s), [id number], Neck pain on right side, 175, [...] qDay, # 84 tab(s), 0 Refill(s), [id number], Well adult exam Onychomycosis, 172.5, cm, [...] Basophil, Absolute 0.0 10 3/mcL Normal 0.0-0.3 [facility] Comment on above: Performed By: #### C MP, ADIFF, GFR, ANEU, CBC #### [place] [id number] [place], [place] [address] Basophils/100 WBC (Bld) 0.6 % Normal 0.0-2.5 [facility] [place] Comment on above: Performed By: #### C MP, ADIFF, GFR, ANEU, CBC #### [id number] [place], [place] [address] Eosinophil, Absolute 0.1 10 3/mcL Normal 0.0-0.7 [facility] Comment on above: Performed By: #### C MP, ADIFF, GFR, ANEU, CBC #### [address] [address] Eosinophils/100 WBC (Bld) 1.5 % Normal 0.0-6.0 [facility] Comment on above: Performed By: #### C MP, ADIFF, GFR, ANEU, CBC #### [address] [address] Lymphocyte, Absolute 0.9 10 3/mcL Normal 0.9-4.3 [facility] Comment on above: Performed By: #### C MP, ADIFF, GFR, ANEU, CBC #### [address] [address] Lymphocytes/100 WBC (Bld) 11.3 % Low 20.0-40.0 [facility] Comment on above: Performed By: #### C MP, ADIFF, GFR, ANEU, CBC #### [address] [address] Monocyte, Absolute 0.5 10 3/mcL Normal 0.1-1.4 [facility] Comment on above: Performed By: #### C MP, ADIFF, GFR, ANEU, CBC #### [address] [address] Monocytes/100 WBC (Bld) 6.3 % Normal 2.0-13.0 [facility] Comment on above: Performed By: #### C MP, ADIFF, GFR, ANEU, CBC #### [address] [address] Neutrophils/100 WBC (Bld) 80.3 % High 50.0-75.0 [facility] Comment on above: Performed By: #### C MP, ADIFF, GFR, ANEU, CBC #### [address] [address] .GFRon 02-02-2025 Estimated Glomerular Filtration Rate 94 ml/min/1.73sqm Normal [facility] Comment on above: Result Comment: Stages of [...] C MP, ADIFF, GFR, ANEU, CBC #### [address] [address] .NEUABSon 02-02-2025 Neutrophil, Absolute 6.5 10 3/mcL Normal 2.3-8.1 [facility] Comment on above: Performed By: #### C MP, ADIFF, GFR, ANEU, CBC #### [address] [address] CBCon 02-02-2025 Erythrocyte distribution width (RBC) [Ratio] 13.8 % Normal 11.5-15.5 [facility] Comment on above: Performed By: #### C MP, ADIFF, GFR, ANEU, CBC #### [address] [address] Hematocrit (Bld) [Volume fraction] 37.1 % Low 40.0-52.0 [facility] Comment on above: Performed By: #### C MP, ADIFF, GFR, ANEU, CBC #### [address] [address] Hgb 12.7 G/dL Low 13.0-17.5 [facility] Comment on above: Performed By: #### C MP, ADIFF, GFR, ANEU, CBC #### [address] [address] MCH (RBC) [Entitic mass] 31.9 pg Normal 27.0-33.0 [facility] Comment on above: Performed By: #### C MP, ADIFF, GFR, ANEU, CBC #### [address] [address] MCHC 34.2 G/dL Normal 32.0-36.0 [facility] Comment on above: Performed By: #### C MP, ADIFF, GFR, ANEU, CBC #### [place] [address] MCV (RBC) [Entitic vol] 93.3 fL Normal 81.0-100.0 [facility] Comment on above: Performed By: #### C MP, ADIFF, GFR, ANEU, CBC #### [place] [address] Platelet 418 10 3/mcL Normal 150-450 [facility] Comment on above: Performed By: #### C MP, ADIFF, GFR, ANEU, CBC #### [place] [address] Platelet mean volume (Bld) [Entitic vol] 7.8 fL Normal 6.4-10.5 [facility] Comment on above: Performed By: #### C MP, ADIFF, GFR, ANEU, CBC #### [place] [id number] RBC 3.98 10 6/mcL Low 4.50-6.00 [facility] Comment on above: Performed By: #### C MP, ADIFF, GFR, ANEU, CBC #### [place] [address] WBC 8.1 10 3/mcL Normal 4.5-10.8 [facility] Comment on above: Performed By: #### C MP, ADIFF, GFR, ANEU, CBC #### [place] [address] CMPon 02-02-2025 Albumin Level 3.1 G/dL Low 3.5-5.0 [facility] Comment on above: Performed By: #### C MP, ADIFF, GFR, ANEU, CBC #### [address] [address] Albumin/Globulin [Mass ratio] 0.8 {ratio} Low 1.1-2.5 [facility] Comment on above: Performed By: #### C MP, ADIFF, GFR, ANEU, CBC #### [place] [id number] ALP [Catalytic activity/Vol] 72 U/L Normal 40-135 [facility] Comment on above: Performed By: #### C MP, ADIFF, GFR, ANEU, CBC #### [place] [address] ALT [Catalytic activity/Vol] 34 U/L Normal 16-63 [facility] Comment on above: Performed By: #### C MP, ADIFF, GFR, ANEU, CBC #### [place] [address] AST [Catalytic activity/Vol] 27 U/L Normal 10-40 [facility] Comment on above: Performed By: #### C MP, ADIFF, GFR, ANEU, CBC #### [place] [address] Bili Total 0.6 mg/dL Normal 0.2-1.0 [facility] Comment on above: Result Comment: Use of this assay is not recommended for patients undergoing treatment with eltrombopag due to the potential for falsely elevated results. Performed By: #### C MP, ADIFF, GFR, ANEU, CBC #### [place] [address] BUN/Creatinine Ratio 17 ratio Normal 7-27 [facility] Comment on above: Performed By: #### C MP, ADIFF, GFR, ANEU, CBC #### [place] [address] Calcium [Mass/Vol] 8.9 mg/dL Normal 8.4-10.2 [facility] Comment on above: Performed By: #### C MP, ADIFF, GFR, ANEU, CBC #### [address] [address] Chloride [Moles/Vol] 105 mmol/L Normal 98-107 [facility] Comment on above: Performed By: #### C MP, ADIFF, GFR, ANEU, CBC #### [address] [address] CO2 [Moles/Vol] 26 mmol/L Normal 22-29 [facility] Comment on above: Performed By: #### C MP, ADIFF, GFR, ANEU, CBC #### [address] [address] Creatinine [Mass/Vol] 0.96 mg/dL Normal 0.67-1.17 [facility] Comment on above: Performed By: #### C MP, ADIFF, GFR, ANEU, CBC #### [address] [address] Electrolyte Balance 10.0 mEq/L Normal 4.0-15.0 [facility] Comment on above: Performed By: #### C MP, ADIFF, GFR, ANEU, CBC #### [address] [address] Globulin 3.9 G/dL Normal 2.7-4.4 [facility] Comment on above: Performed By: #### C MP, ADIFF, GFR, ANEU, CBC #### [address] [address] Glucose [Mass/Vol] 102 mg/dL Normal 70-105 [facility] Comment on above: Performed By: #### C MP, ADIFF, GFR, ANEU, CBC #### [address] [address] Potassium [Moles/Vol] 4.3 mmol/L Normal 3.5-5.1 [facility] Comment on above: Performed By: #### C MP, ADIFF, GFR, ANEU, CBC #### [address] [address] Sodium [Moles/Vol] 141 mmol/L Normal 136-145 [facility] Comment on above: Performed By: #### C MP, ADIFF, GFR, ANEU, CBC #### [facility] [address] [place], [place] [address] Total Protein 7.0 G/dL Normal 6.4-8.2 [facility] Comment on above: Performed By: #### C MP, ADIFF, GFR, ANEU, CBC #### [facility] [address] [place], [place] [address] Urea nitrogen [Mass/Vol] 16 mg/dL Normal 7-18 [facility] Comment on above: Performed By: #### C MP, ADIFF, GFR, ANEU, CBC #### [facility] [address] [place], [place] [address] LABORATORYOrdered By: SYSTEM SYSTEM on 02-02-2025 Albumin [...] Brain W/WO Contraston 2024 Brain W/WO Contrast [facility] [address] [place] [address] Brain W/WO Contrast MR#: [id number] Acct: [id number] Name: RENAN CENTENO LUIS Rep #: [id number] : 1970 M 54 From: Beto Reinoso MD PCP: Dr. Yung Clifford MD Status: REG CLI Study: Brain W/WO Contrast Date of Exam: 01/20/25 Exam# [id number] Ordering Dr: Estella Morrison DO PROCEDURE: BRAIN [...] IMPRESSION: No acute intracranial abnormality. Reading Location: [place] [address] CC: Dr. Estella Morrison DO; Dr. Yung Clifford MD Digital Marketing Manager: Signed Normal [facility] Magnetic resonance imaging r eportOrdered By: Beto Reinoso on 01-20-2025 Study report [facility] [address] [place] [id number] Brain W/WO Contrast MR#: [id number] Acct: [id number] Name: RENAN CENTENO Rep #: [id number] : 1970 M 54 From: Jhonatan Reinoso MD PCP: Dr. Yung Clifford MD Status: REG CLI Study:Brain W/WO Contrast Date of Exam: 01/20/25 Exam# [id number] Ordering Dr: Yosvany Morrison DO PROCEDURE: BRAIN [...] IMPRESSION: No acute intracranial abnormality. Reading Location: [id number] CC: Dr. Estella Morrison DO; Dr. Yung Clifford MD ~ Digital Marketing Manager: [facility] .Auto Diffon 01-19-2025 Basophil, Absolute 0.0 10 3/mcL Normal 0.0-0.3 [facility] Comment on above: Performed By: #### C MP, ADIFF, GFR, ANEU, CBC #### [address] [address] Basophils/100 WBC (Bld) 0.5 % Normal 0.0-2.5 [facility] Comment on above: Performed By: #### C MP, ADIFF, GFR, ANEU, CBC #### [address] [address] Eosinophil, Absolute 0.0 10 3/mcL Normal 0.0-0.7 [facility] Comment on above: Performed By: #### C MP, ADIFF, GFR, ANEU, CBC #### [address] [address] Eosinophils/100 WBC (Bld) 0.6 % Normal 0.0-6.0 [facility] Comment on above: Performed By: #### C MP, ADIFF, GFR, ANEU, CBC #### [address] [address] Lymphocyte, Absolute 0.5 10 3/mcL Low 0.9-4.3 [facility] Comment on above: Performed By: #### C MP, ADIFF, GFR, ANEU, CBC #### [address] [address] Lymphocytes/100 WBC (Bld) 8.6 % Low 20.0-40.0 [facility] Comment on above: Performed By: #### C MP, ADIFF, GFR, ANEU, CBC #### [address] [address] Monocyte, Absolute 0.6 10 3/mcL Normal 0.1-1.4 [facility] Comment on above: Performed By: #### C MP, ADIFF, GFR, ANEU, CBC #### [address] [address] Monocytes/100 WBC (Bld) 9.5 % Normal 2.0-13.0 [facility] Comment on above: Performed By: #### C MP, ADIFF, GFR, ANEU, CBC #### [address] [address] Neutrophils/100 WBC (Bld) 80.8 % High 50.0-75.0 [facility] Comment on above: Performed By: #### C MP, ADIFF, GFR, ANEU, CBC #### [address] [address] .GFRon 01-19-2025 Estimated Glomerular Filtration Rate 103 ml/min/1.73sqm Normal [facility] Comment on above: Result Comment: Stages of [...] C MP, ADIFF, GFR, ANEU, CBC #### [address] [address] .NEUABSon 01-19-2025 Neutrophil, Absolute 5.0 10 3/mcL Normal 2.3-8.1 [facility] Comment on above: Performed By: #### C MP, ADIFF, GFR, ANEU, CBC #### [address] [address] CBCon 01-19-2025 Erythrocyte distribution width (RBC) [Ratio] 13.5 % Normal 11.5-15.5 [facility] Comment on above: Performed By: #### C MP, ADIFF, GFR, ANEU, CBC #### [place] [address] Hematocrit (Bld) [Volume fraction] 41.9 % Normal 40.0-52.0 [facility] Comment on above: Performed By: #### C MP, ADIFF, GFR, ANEU, CBC #### [place] [address] Hgb 14.4 G/dL Normal 13.0-17.5 [facility] Comment on above: Performed By: #### C MP, ADIFF, GFR, ANEU, CBC #### [place] [address] MCH (RBC) [Entitic mass] 31.5 pg Normal 27.0-33.0 [facility] Comment on above: Performed By: #### C MP, ADIFF, GFR, ANEU, CBC #### [place] [address] MCHC 34.3 G/dL Normal 32.0-36.0 [facility] Comment on above: Performed By: #### C MP, ADIFF, GFR, ANEU, CBC #### [place] [address] MCV (RBC) [Entitic vol] 91.9 fL Normal 81.0-100.0 [facility] Comment on above: Performed By: #### C MP, ADIFF, GFR, ANEU, CBC #### [place] [address] Platelet 220 10 3/mcL Normal 150-450 [facility] Comment on above: Performed By: #### C MP, ADIFF, GFR, ANEU, CBC #### [place] [address] Platelet mean volume (Bld) [Entitic vol] 8.3 fL Normal 6.4-10.5 [facility] Comment on above: Performed By: #### C MP, ADIFF, GFR, ANEU, CBC #### [place] [address] RBC 4.56 10 6/mcL Normal 4.50-6.00 [facility] Comment on above: Performed By: #### C MP, ADIFF, GFR, ANEU, CBC #### [address] [address] WBC 6.2 10 3/mcL Normal 4.5-10.8 [facility] Comment on above: Performed By: #### C MP, ADIFF, GFR, ANEU, CBC #### [address] [address] CMPon 01-19-2025 Albumin Level 3.5 G/dL Normal 3.5-5.0 [facility] Comment on above: Performed By: #### C MP, ADIFF, GFR, ANEU, CBC #### [address] [address] Albumin/Globulin [Mass ratio] 1.0 {ratio} Low 1.1-2.5 [facility] Comment on above: Performed By: #### C MP, ADIFF, GFR, ANEU, CBC #### [address] [address] ALP [Catalytic activity/Vol] 94 U/L Normal 40-135 [facility] Comment on above: Performed By: #### C MP, ADIFF, GFR, ANEU, CBC #### [address] [address] ALT [Catalytic activity/Vol] 108 U/L High 16-63 [facility] Comment on above: Performed By: #### C MP, ADIFF, GFR, ANEU, CBC #### [address] [address] AST [Catalytic activity/Vol] 62 U/L High 10-40 [facility] Comment on above: Performed By: #### C MP, ADIFF, GFR, ANEU, CBC #### [address] [address] Bili Total 0.6 mg/dL Normal 0.2-1.0 [facility] Comment on above: Result Comment: Use of this assay is not recommended for patients undergoing treatment with eltrombopag due to the potential for falsely elevated results. Performed By: #### C MP, ADIFF, GFR, ANEU, CBC #### [place] [address] BUN/Creatinine Ratio 16 ratio Normal 7-27 [facility] Comment on above: Performed By: #### C MP, ADIFF, GFR, ANEU, CBC #### [place] [address] Calcium [Mass/Vol] 8.9 mg/dL Normal 8.4-10.2 [facility] Comment on above: Performed By: #### C MP, ADIFF, GFR, ANEU, CBC #### [place] [address] Chloride [Moles/Vol] 102 mmol/L Normal 98-107 [facility] Comment on above: Performed By: #### C MP, ADIFF, GFR, ANEU, CBC #### [place] [address] CO2 [Moles/Vol] 24 mmol/L Normal 22-29 [facility] Comment on above: Performed By: #### C MP, ADIFF, GFR, ANEU, CBC #### [place] [address] Creatinine [Mass/Vol] 0.86 mg/dL Normal 0.67-1.17 [facility] Comment on above: Performed By: #### C MP, ADIFF, GFR, ANEU, CBC #### [place] [address] Electrolyte Balance 12.0 mEq/L Normal 4.0-15.0 [facility] Comment on above: Performed By: #### C MP, ADIFF, GFR, ANEU, CBC #### [address] [address] Globulin 3.6 G/dL Normal 2.7-4.4 [facility] Comment on above: Performed By: #### C MP, ADIFF, GFR, ANEU, CBC #### [address] [address] Glucose [Mass/Vol] 107 mg/dL High 70-105 [facility] Comment on above: Performed By: #### C MP, ADIFF, GFR, ANEU, CBC #### [address] [address] Potassium [Moles/Vol] 4.4 mmol/L Normal 3.5-5.1 [facility] Comment on above: Performed By: #### C MP, ADIFF, GFR, ANEU, CBC #### [address] [address] Sodium [Moles/Vol] 138 mmol/L Normal 136-145 [facility] Comment on above: Performed By: #### C MP, ADIFF, GFR, ANEU, CBC #### [address] [address] Total Protein 7.1 G/dL Normal 6.4-8.2 [facility] Comment on above: Performed By: #### C MP, ADIFF, GFR, ANEU, CBC #### [address] [address] Urea nitrogen [Mass/Vol] 14 mg/dL Normal 7-18 [facility] Comment on above: Performed By: #### C MP, ADIFF, GFR, ANEU, CBC #### [address] [address] [address] VENOGRAM HEAD W/CONTRASTo n 01-19-2025 CT [...] 01/19/2025 7:09:33 PM Ordering Provider: CATRACHITA Pérez [facility] DIMERon 01-19-2025 D-Dimer 774 ng/mL D-DU High 0-230 [facility] Comment on above: Result Comment: Resu lts [...] MP, ADIFF, GFR, ANEU, CBC #### [place] [address] LABORATORYOrdered By: SYSTEM SYSTEM on 01-19-2025 Albumin [...] Prostate Specific Antigen 1.51 ng/mL Normal 0.00-4.00 [facility] Comment on above: Performed By: #### P SA #### [address] [address] .GFRon 07-07-2024 GFR 92 ml/min/1.73sqm Normal [facility] Comment on above: Result Comment: GFR Population [...] By: #### L IPID, CMP, GFR #### [address] [address] GFR Non- 76 ml/min/1.73sqm Normal [facility] Comment on above: Result Comment: GFR Population [...] By: #### L IPID, CMP, GFR #### [address] [address] CMPon 07-07-2024 Albumin Level 4.1 G/dL Normal 3.5-5.0 [facility] Comment on above: Performed By: #### L IPID, CMP, GFR #### [address] [address] Albumin/Globulin [Mass ratio] 1.5 {ratio} Normal 1.1-2.5 [facility] Comment on above: Performed By: #### L IPID, CMP, GFR #### [address] [address] ALP [Catalytic activity/Vol] 67 U/L Normal 40-135 [facility] Comment on above: Performed By: #### L IPID, CMP, GFR #### [address] [address] ALT [Catalytic activity/Vol] 34 U/L Normal 16-63 [facility] Comment on above: Performed By: #### L IPID, CMP, GFR #### [address] [address] AST [Catalytic activity/Vol] 19 U/L Normal 10-40 [facility] Comment on above: Performed By: #### L IPID, CMP, GFR #### [address] [address] Bili Total 0.7 mg/dL Normal 0.2-1.0 [facility] Comment on above: Result Comment: Use of this assay is not recommended for patients undergoing treatment with eltrombopag due to the potential for falsely elevated results. Performed By: #### L IPID, CMP, GFR #### [address] [place] [address] BUN/Creatinine Ratio 17 ratio Normal 7-27 [facility] Comment on above: Performed By: #### L IPID, CMP, GFR #### [address] [address] Calcium [Mass/Vol] 9.7 mg/dL Normal 8.4-10.2 [facility] Comment on above: Performed By: #### L IPID, CMP, GFR #### [address] [address] Chloride [Moles/Vol] 103 mmol/L Normal 98-107 [facility] Comment on above: Performed By: #### L IPID, CMP, GFR #### [place] [address] CO2 [Moles/Vol] 30 mmol/L High 22-29 [facility] Comment on above: Performed By: #### L IPID, CMP, GFR #### [address] [address] Creatinine [Mass/Vol] 1.03 mg/dL Normal 0.70-1.30 [facility] Comment on above: Result Comment: Test ing performed on Siemens Dimension EXL analyzer using a modified kinetic Atif technique. Performed By: #### L IPID, CMP, GFR #### [address] [address] Electrolyte Balance 7.0 mEq/L Normal 4.0-15.0 [facility] Comment on above: Performed By: #### L IPID, CMP, GFR #### [address] [address] Globulin 2.7 G/dL Normal [facility] Comment on above: Performed By: #### L IPID, CMP, GFR #### [address] [address] Glucose [Mass/Vol] 92 mg/dL Normal 70-105 [facility] Comment on above: Performed By: #### L IPID, CMP, GFR #### [address], [place] [address] Potassium [Moles/Vol] 4.1 mmol/L Normal 3.5-5.1 [facility] Comment on above: Performed By: #### L IPID, CMP, GFR #### [place] [address] [place], [place] [address] Sodium [Moles/Vol] 140 mmol/L Normal 136-145 [facility] Comment on above: Performed By: #### L IPID, CMP, GFR #### [place] [address] [place], [place] [address] Total Protein 6.8 G/dL Normal 6.4-8.2 [facility] Comment on above: Performed By: #### L IPID, CMP, GFR #### [place] [address] [place], [place] [address] Urea nitrogen [Mass/Vol] 17 mg/dL Normal 7-18 [facility] Comment on above: Performed By: #### L IPID, CMP, GFR #### [place] [address] [place], [place] [address] LABORATORYOrdered By: SYSTEM SYSTEM on 07-07-2024 Albumin [...] 07-07-2024 Cholesterol [Mass/Vol] 191 mg/dL Normal 0-200 [facility] Comment on above: Result Comment: Chol esterol Reference Interval: Less than 200 Desirable 200-239 Borderline high risk 240 and above High risk Performed By: #### L IPID, CMP, GFR #### [address] [address] Cholesterol in HDL [Mass/Vol] 55 mg/dL Normal 40-60 [facility] Comment on above: Performed By: #### L IPID, CMP, GFR #### [address] [address] Cholesterol in LDL [Mass/Vol] 118 mg/dL Normal 0-130 [facility] Comment on above: Performed By: #### L IPID, CMP, GFR #### [place] [address] [place], [place] [address] Triglyceride [Mass/Vol] 91 mg/dL Normal 0-150 [facility] Comment on above: Result Comment: Trig lyceride Reference Interval: Less than 150 Normal 150-199 Borderline high risk 200-499 High risk 500 or higher Very high risk Performed By: #### L IPID, CMP, GFR #### [address] [address] .GFRon 11-30-2020 GFR Non- 85 ml/min/1.73sqm Normal [facility] ([place]) Comment on above: Result Comment: GFR Population [...] ADIFF, ANEU, LIPID, AFSHIN, RENIND, CBC #### [place] [address] [place], [place] [address] GFR 103 ml/min/1.73sqm Normal [facility] ([place]) Comment on above: Result Comment: GFR Population [...] ADIFF, ANEU, LIPID, AFSHIN, RENIND, CBC #### [address] [address] CMPon 11-30-2020 Albumin Level 3.8 G/dL Normal 3.5-5.0 [facility] ([place]) Comment on above: Performed By: #### C MP, GFR, TSH, ADIFF, ANEU, LIPID, AFSHIN, RENIND, CBC #### [address] [address] Albumin/Globulin [Mass ratio] 1.3 {ratio} Normal 1.1-2.5 [facility] ([place]) Comment on above: Performed By: #### C MP, GFR, TSH, ADIFF, ANEU, LIPID, AFSHIN, RENIND, CBC #### [address] [address] ALP [Catalytic activity/Vol] 63 U/L Normal 40-135 [facility] ([place]) Comment on above: Performed By: #### C MP, GFR, TSH, ADIFF, ANEU, LIPID, AFSHIN, RENIND, CBC #### [address] [address] ALT [Catalytic activity/Vol] 37 U/L Normal 16-63 [facility] ([place]) Comment on above: Performed By: #### C MP, GFR, TSH, ADIFF, ANEU, LIPID, AFSHIN, RENIND, CBC #### [address] [address] AST [Catalytic activity/Vol] 15 U/L Normal 10-40 [facility] ([place]) Comment on above: Performed By: #### C MP, GFR, TSH, ADIFF, ANEU, LIPID, AFSHIN, RENIND, CBC #### [address] [address] Bili Total 0.8 mg/dL Normal 0.2-1.0 [facility] ([place]) Comment on above: Result Comment: Use of this assay is not recommended for patients undergoing treatment with eltrombopag due to the potential for falsely elevated results. Performed By: #### C MP, GFR, TSH, ADIFF, ANEU, LIPID, AFSHIN, RENIND, CBC #### [address] [address] BUN/Creatinine Ratio 22 ratio Normal 7-27 [facility] ([place]) Comment on above: Performed By: #### C MP, GFR, TSH, ADIFF, ANEU, LIPID, AFSIHN, RENIND, CBC #### [place] [id number] Calcium [Mass/Vol] 8.7 mg/dL Normal 8.4-10.2 [facility] ([place]) Comment on above: Performed By: #### C MP, GFR, TSH, ADIFF, ANEU, LIPID, AFSHIN, RENIND, CBC #### [address] [address] Chloride [Moles/Vol] 105 mmol/L Normal 98-107 [facility] ([place]) Comment on above: Performed By: #### C MP, GFR, TSH, ADIFF, ANEU, LIPID, AFSHIN, RENIND, CBC #### [address] [address] CO2 [Moles/Vol] 28 mmol/L Normal 22-29 [facility] ([place]) Comment on above: Performed By: #### C MP, GFR, TSH, ADIFF, ANEU, LIPID, AFSHIN, RENIND, CBC #### [address] [address] Creatinine [Mass/Vol] 0.94 mg/dL Normal 0.70-1.30 [facility] ([place]) Comment on above: Performed By: #### C MP, GFR, TSH, ADIFF, ANEU, LIPID, AFSHIN, RENIND, CBC #### [address] [address] Electrolyte Balance 8.0 mEq/L Normal [facility] ([place]) Comment on above: Performed By: #### C MP, GFR, TSH, ADIFF, ANEU, LIPID, AFSHIN, RENIND, CBC #### [address] [address] Globulin 2.9 G/dL Normal [facility] ([place]) Comment on above: Performed By: #### C MP, GFR, TSH, ADIFF, ANEU, LIPID, AFSHIN, RENIND, CBC #### [address] [address] Glucose [Mass/Vol] 83 mg/dL Normal 70-105 [facility] ([place]) Comment on above: Performed By: #### C MP, GFR, TSH, ADIFF, ANEU, LIPID, AFSHIN, RENIND, CBC #### [address] [address] Potassium [Moles/Vol] 4.1 mmol/L Normal 3.5-5.1 [facility] ([place]) Comment on above: Performed By: #### C MP, GFR, TSH, ADIFF, ANEU, LIPID, AFSHIN, RENIND, CBC #### [address] [address] Sodium [Moles/Vol] 141 mmol/L Normal 136-145 [facility] ([place]) Comment on above: Performed By: #### C MP, GFR, TSH, ADIFF, ANEU, LIPID, AFSHIN, RENIND, CBC #### [address] [address] Total Protein 6.7 G/dL Normal 6.4-8.2 [facility] ([place]) Comment on above: Performed By: #### C MP, GFR, TSH, ADIFF, ANEU, LIPID, AFSHIN, RENIND, CBC #### [address] [address] Urea nitrogen [Mass/Vol] 21 mg/dL High 7-18 [facility] ([place]) Comment on above: Performed By: #### C MP, GFR, TSH, ADIFF, ANEU, LIPID, AFSHIN, RENIND, CBC #### [facility] [address], [place] [address] LIPIDon 11-30-2020 Cholesterol [Mass/Vol] 202 mg/dL High 0-200 [facility] ([place]) Comment on above: Result Comment: Chol esterol Reference Interval: Less than 200 Desirable 200-239 Borderline high risk 240 and above High risk Performed By: #### C MP, LIPID, GFR #### [address] [address] Cholesterol in HDL [Mass/Vol] 51 mg/dL Normal 40-60 [facility] ([place]) Comment on above: Performed By: #### C MP, LIPID, GFR #### [address] [address] Cholesterol in LDL [Mass/Vol] 123 mg/dL Normal 0-130 [facility] ([place]) Comment on above: Performed By: #### C MP, LIPID, GFR #### [address] [address] Triglyceride [Mass/Vol] 139 mg/dL Normal 0-150 [facility] ([place]) Comment on above: Result Comment: Trig lyceride Reference Interval: Less than 150 Normal 150-199 Borderline high risk 200-499 High risk 500 or higher Very high risk Performed By: #### C MP, LIPID, GFR #### [address] [address] ALDOSon 06-03-2020 Aldosterone 19.5 ng/dL Normal 3.1-35.4 [facility] ([place]) Comment on above: Result Comment: Norm al serum levels of aldosterone are dependent on the sodium intake and whether the patient is upright or supine. High sodium intake will tend to suppress serum aldosterone, whereas low sodium intake will elevate serum aldosterone. The reference interval for serum aldosterone are based on a normal sodium intake. Supine reference range <23.1 ng/dL Performed By: [facility] [address] [place] [address] Straight Edger: José Pang III, M.D. CLIA#: [id number] Phone#: Performed By: #### C MP, GFR, TSH, ADIFF, ANEU, LIPID, AFSHIN, RENIND, CBC #### [address] [address] RENINDon 06-03-2020 Direct Renin 18.6 pg/mL Normal [facility] ([place]) Comment on above: Result Comment: Theresa muller Reference Range, 41-99 years: Upright: 3.6-81.6 pg/mL Supine: 2.5-45.1 pg/mL Performed By: [facility] [address] [place] [address] Straight Edger: Carlito Moreira III#: [id number] Phone#: Performed By: #### C MP, GFR, TSH, ADIFF, ANEU, LIPID, AFSHIN, RENIND, CBC #### [address] [address] .Auto Diffon 06-01-2020 Basophil, Absolute 0.00 10 3/mcL Normal 0.00-0.19 [facility] ([place]) Comment on above: Performed By: #### C MP, GFR, TSH, ADIFF, ANEU, LIPID, AFSHIN, RENIND, CBC #### [address] [address] Basophils/100 WBC (Bld) 0.8 % Normal 0.0-2.5 [facility] ([place]) Comment on above: Performed By: #### C MP, GFR, TSH, ADIFF, ANEU, LIPID, AFSHIN, RENIND, CBC #### [address] [address] Eosinophil, Absolute 0.30 10 3/mcL Normal 0.00-0.40 [facility] ([place]) Comment on above: Performed By: #### C MP, GFR, TSH, ADIFF, ANEU, LIPID, AFSHIN, RENIND, CBC #### [address] [address] Eosinophils/100 WBC (Bld) 4.9 % Normal 0.0-7.0 [facility] ([place]) Comment on above: Performed By: #### C MP, GFR, TSH, ADIFF, ANEU, LIPID, AFSHIN, RENIND, CBC #### [address] [address] Lymphocyte, Absolute 2.20 10 3/mcL Normal 0.77-3.85 [facility] ([place]) Comment on above: Performed By: #### C MP, GFR, TSH, ADIFF, ANEU, LIPID, AFSHIN, RENIND, CBC #### [address] [address] Lymphocytes/100 WBC (Bld) 38.4 % Normal 10.0-50.0 [facility] ([place]) Comment on above: Performed By: #### C MP, GFR, TSH, ADIFF, ANEU, LIPID, AFSHIN, RENIND, CBC #### [address] [address] Monocyte, Absolute 0.60 10 3/mcL Normal 0.15-1.00 [facility] ([place]) Comment on above: Performed By: #### C MP, GFR, TSH, ADIFF, ANEU, LIPID, AFSHIN, RENIND, CBC #### [address] [address] Monocytes/100 WBC (Bld) 9.9 % Normal 1.7-13.0 [facility] ([place]) Comment on above: Performed By: #### C MP, GFR, TSH, ADIFF, ANEU, LIPID, AFSHIN, RENIND, CBC #### [address] [address] Neutrophils/100 WBC (Bld) 46.0 % Normal 37.0-80.0 [facility] ([place]) Comment on above: Performed By: #### C MP, GFR, TSH, ADIFF, ANEU, LIPID, AFSHIN, RENIND, CBC #### [address] [address] .GFRon 06-01-2020 GFR Non- 60 ml/min/1.73sqm Normal [facility] ([place]) Comment on above: Result Comment: GFR Population [...] ADIFF, ANEU, LIPID, AFSHIN, RENIND, CBC #### [address] [address] GFR 73 ml/min/1.73sqm Normal [facility] ([place]) Comment on above: Result Comment: GFR Population [...] ADIFF, ANEU, LIPID, AFSHIN, RENIND, CBC #### [address] [address] .NEUABSon 06-01-2020 Neutrophil, Absolute 2.60 10 3/mcL Low 2.85-6.16 [facility] ([place]) Comment on above: Performed By: #### C MP, GFR, TSH, ADIFF, ANEU, LIPID, AFSHIN, RENIND, CBC #### [address] [address] CBCon 06-01-2020 Erythrocyte distribution width (RBC) [Ratio] 13.2 % Normal 11.5-14.5 [facility] ([place]) Comment on above: Performed By: #### C MP, GFR, TSH, ADIFF, ANEU, LIPID, AFSHIN, RENIND, CBC #### [address] [address] Hematocrit (Bld) [Volume fraction] 44.7 % Normal 42.0-52.0 [facility] ([place]) Comment on above: Performed By: #### C MP, GFR, TSH, ADIFF, ANEU, LIPID, AFSHIN, RENIND, CBC #### [address] [address] Hgb 15.0 G/dL Normal 14.0-18.0 [facility] ([place]) Comment on above: Performed By: #### C MP, GFR, TSH, ADIFF, ANEU, LIPID, AFSHIN, RENIND, CBC #### [address] [address] MCH (RBC) [Entitic mass] 31.5 pg High 27.0-31.2 [facility] ([place]) Comment on above: Performed By: #### C MP, GFR, TSH, ADIFF, ANEU, LIPID, AFSHIN, RENIND, CBC #### [address] [address] MCHC 33.6 G/dL Normal 31.8-35.4 [facility] ([place]) Comment on above: Performed By: #### C MP, GFR, TSH, ADIFF, ANEU, LIPID, AFSHIN, RENIND, CBC #### [address] [address] MCV (RBC) [Entitic vol] 93.9 fL Normal 80.0-94.0 [facility] ([place]) Comment on above: Performed By: #### C MP, GFR, TSH, ADIFF, ANEU, LIPID, AFSHIN, RENIND, CBC #### [address] [address] Platelet 279 10 3/mcL Normal 130-400 [facility] ([place]) Comment on above: Performed By: #### C MP, GFR, TSH, ADIFF, ANEU, LIPID, AFSHIN, RENIND, CBC #### [place] [address] Platelet mean volume (Bld) [Entitic vol] 8.2 fL Normal 7.4-10.4 [facility] ([place]) Comment on above: Performed By: #### C MP, GFR, TSH, ADIFF, ANEU, LIPID, AFSHIN, RENIND, CBC #### [place] [address] RBC 4.76 10 6/mcL Normal 4.04-6.13 [facility] ([place]) Comment on above: Performed By: #### C MP, GFR, TSH, ADIFF, ANEU, LIPID, AFSHIN, RENIND, CBC #### [place] [address] WBC 5.60 10 3/mcL Normal 4.60-10.80 [facility] ([place]) Comment on above: Performed By: #### C MP, GFR, TSH, ADIFF, ANEU, LIPID, AFSHIN, RENIND, CBC #### [place] [address] CMPon 06-01-2020 Albumin Level 4.5 G/dL Normal 3.5-5.0 [facility] ([place]) Comment on above: Performed By: #### C MP, GFR, TSH, ADIFF, ANEU, LIPID, AFSHIN, RENIND, CBC #### [place] [address] Albumin/Globulin [Mass ratio] 1.6 {ratio} Normal 1.1-2.5 [facility] ([place]) Comment on above: Performed By: #### C MP, GFR, TSH, ADIFF, ANEU, LIPID, AFSHIN, RENIND, CBC #### [place] [address] ALP [Catalytic activity/Vol] 58 U/L Normal 40-135 [facility] ([place]) Comment on above: Performed By: #### C MP, GFR, TSH, ADIFF, ANEU, LIPID, AFSHIN, RENIND, CBC #### [address] [address] ALT [Catalytic activity/Vol] 27 U/L Normal 16-63 [facility] ([place]) Comment on above: Performed By: #### C MP, GFR, TSH, ADIFF, ANEU, LIPID, AFSHIN, RENIND, CBC #### [address] [address] AST [Catalytic activity/Vol] 18 U/L Normal 10-40 [facility] ([place]) Comment on above: Performed By: #### C MP, GFR, TSH, ADIFF, ANEU, LIPID, AFSHIN, RENIND, CBC #### [address] [address] Bili Total 1.1 mg/dL High 0.2-1.0 [facility] ([place]) Comment on above: Result Comment: Use of this assay is not recommended for patients undergoing treatment with eltrombopag due to the potential for falsely elevated results. Performed By: #### C MP, GFR, TSH, ADIFF, ANEU, LIPID, AFSHIN, RENIND, CBC #### [address] [address] BUN/Creatinine Ratio 17 ratio Normal 7-27 [facility] ([place]) Comment on above: Performed By: #### C MP, GFR, TSH, ADIFF, ANEU, LIPID, AFSHIN, RENIND, CBC #### [address] [address] Calcium [Mass/Vol] 9.8 mg/dL Normal 8.4-10.2 [facility] ([place]) Comment on above: Performed By: #### C MP, GFR, TSH, ADIFF, ANEU, LIPID, AFSHIN, RENIND, CBC #### [address] [address] Chloride [Moles/Vol] 105 mmol/L Normal 98-107 [facility] ([place]) Comment on above: Performed By: #### C MP, GFR, TSH, ADIFF, ANEU, LIPID, AFSHIN, RENIND, CBC #### [address] [address] CO2 [Moles/Vol] 29 mmol/L Normal 22-29 [facility] ([place]) Comment on above: Performed By: #### C MP, GFR, TSH, ADIFF, ANEU, LIPID, AFSHIN, RENIND, CBC #### [address] [address] Creatinine [Mass/Vol] 1.27 mg/dL Normal 0.70-1.30 [facility] ([place]) Comment on above: Performed By: #### C MP, GFR, TSH, ADIFF, ANEU, LIPID, AFSHIN, RENIND, CBC #### [address] [address] Electrolyte Balance 8.0 mEq/L Normal [facility] ([place]) Comment on above: Performed By: #### C MP, GFR, TSH, ADIFF, ANEU, LIPID, AFSHIN, RENIND, CBC #### [address] [address] Globulin 2.9 G/dL Normal [facility] ([place]) Comment on above: Performed By: #### C MP, GFR, TSH, ADIFF, ANEU, LIPID, AFSHIN, RENIND, CBC #### [address] [address] Glucose [Mass/Vol] 83 mg/dL Normal 70-105 [facility] ([place]) Comment on above: Performed By: #### C MP, GFR, TSH, ADIFF, ANEU, LIPID, AFSHIN, RENIND, CBC #### [address] [address] Potassium [Moles/Vol] 5.5 mmol/L High 3.5-5.1 [facility] ([place]) Comment on above: Performed By: #### C MP, GFR, TSH, ADIFF, ANEU, LIPID, AFSHIN, RENIND, CBC #### [address] [address] Sodium [Moles/Vol] 142 mmol/L Normal 136-145 [facility] ([place]) Comment on above: Performed By: #### C MP, GFR, TSH, ADIFF, ANEU, LIPID, AFSHIN, RENIND, CBC #### [address] [address] Total Protein 7.4 G/dL Normal 6.4-8.2 [facility] ([place]) Comment on above: Performed By: #### C MP, GFR, TSH, ADIFF, ANEU, LIPID, AFSHIN, RENIND, CBC #### [address] [address] Urea nitrogen [Mass/Vol] 22 mg/dL High 7-18 [facility] ([place]) Comment on above: Performed By: #### C MP, GFR, TSH, ADIFF, ANEU, LIPID, AFSHIN, RENIND, CBC #### [address] [address] LIPIDon 06-01-2020 Cholesterol [Mass/Vol] 231 mg/dL High 0-200 [facility] ([place]) Comment on above: Result Comment: Chol esterol Reference Interval: Less than 200 Desirable 200-239 Borderline high risk 240 and above High risk Performed By: #### C MP, GFR, TSH, ADIFF, ANEU, LIPID, AFSHIN, RENIND, CBC #### [address] [address] Cholesterol in HDL [Mass/Vol] 57 mg/dL Normal 40-60 [facility] ([place]) Comment on above: Performed By: #### C MP, GFR, TSH, ADIFF, ANEU, LIPID, AFSHIN, RENIND, CBC #### [address] [address] Cholesterol in LDL [Mass/Vol] 160 mg/dL High 0-130 [facility] ([place]) Comment on above: Performed By: #### C MP, GFR, TSH, ADIFF, ANEU, LIPID, AFSHIN, RENIND, CBC #### [address] [address] Triglyceride [Mass/Vol] 70 mg/dL Normal 0-150 [facility] ([place]) Comment on above: Result Comment: Trig lyceride Reference Interval: Less than 150 Normal 150-199 Borderline high risk 200-499 High risk 500 or higher Very high risk Performed By: #### C MP, GFR, TSH, ADIFF, ANEU, LIPID, AFSHIN, RENIND, CBC #### [place] [address] [place], [place] [address] TSHon 06-01-2020 TSH Qn 1.60 m[IU]/L Normal 0.36-3.74 [facility] ([place]) Comment on above: Performed By: #### C MP, GFR, TSH, ADIFF, ANEU, LIPID, AFSHIN, RENIND, CBC #### [place] [id number] [place], [place] [address] NM MYOCARDIAL SPECT STRESS/R ESTon 05-27-2020 NM [...] Date: 05/27/2020 11:32:53 AM Ordering Provider:Yung Pérez [facility] ([place]) Encounters Encounter Date Encounter Type Care Provider Facility Start: 02-02-2025 End: 02-06-2025 ambulatory YUNG CLIFFORD MD Facility:[facility] Start: 02-02-2025 End: 02-06-2025 Encounter for general adult medical examination without abnormal findings DR ESTELLA MORRISON DO Facility:[facility] Start: 02-02-2025 End: 02-06-[address] ESTELLA MORRISON DO [facility] Start: 01-23-2025 ambulatory Estella Morrison Facility:[facility] Start: 01-20-2025 End: 01-20-[address] Estella Morrison DO Work Phone: [facility] Work Phone: Start: 01-20-2025 End: 01-20-[address] 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 Facility:[facility] Start: 07-07-2024 End: 07-11-2024 Outreach Lab AMBER [employer]LEY BUILDING ECONOMIST-OVERLAY OPERATOR [facility] Start: 07-07-2024 End: 07-11-2024 ambulatory YUNG CLIFFORD MD Facility:[facility] Start: 07-07-2024 End: 07-11-[address] ESTELLA MORRISON DO [facility] Start: 05-28-2020 End: 05-28-2020 Orders Only Horace () Natalya Work Phone: [facility] Comment on above: Primary hypertension (Primary Dx) Procedures Date Procedure Procedure Detail Performing Clinician Start: 01-20-2025 MRI of brain with contrast Dr. Estella Morrison DO Work Phone: Start: 05-24-2020 Echocardiography [employer] Comment on above: EF 55-60% Start: 05-13-2020 Cardiovascular stres s testing [employer]OMIST[employer] Plan of Treatment Date Care Activity Detail Author Start: 04-13-2020 Influenza vaccination INFLUENZA (#1) [facility] Start: 2015 DIABETES SCREEN DIABETES SCREEN [facility] Start: 2005 LIPID SCREEN LIPID SCREEN [facility] Start: 1989 Urine microalbumin profile DTAP,TDAP,TD (1 - Tdap) [facility] Start: 1988 HEPATITIS C SCREENING HEPATITIS C SC [facility] Start: 1988 HIV SCREENING HIV SCREENING [facility] End: 05-28-2021 ECG COMPLETE ECG COMPLETE ECG Routine Primary hypertension 1 Occurrences starting 05/28/2020 until 05/28/2021 [facility] Comment on above: 1 Occurrences starti ng 05/28/2020 until 05/28/2021 [facility] Immunizations Immunization Date Immunization Notes Care Provider Dilshad felix 07-18-2024 influenza, injectabl e, quadrivalent, contains preservative; Translations: [Fluarix PF Prefilled Syringe ] JARED MEDLEY MD [facility] [place] 10-28-2020 SARS-CoV-2 (COVID-19 ) mRNA-1273 vaccine AMBER ROSEMARY BUILDING ECONOMIST-OVERLAY OPERATOR [facility] Comment on above: Result Comment: 2020: TPV50 08-22-2019 influenza virus vaccine, unspecified formulation AMBER ROSEAMRY BUILDING ECONOMIST-OVERLAY OPERATOR [facility] 08-11-2018 influenza virus vaccine, unspecified formulation AMBER ROSEMARY BUILDING ECONOMIST-OVERLAY OPERATOR [facility] 02-03-2014 tetanus toxoid, reduced diphtheria toxoid, and acellular pertussis vaccine, adsorbed AMBER ROSEMARY BUILDING ECONOMIST-OVERLAY OPERATOR [facility] Payers Date Payer Category Payer Unknown [id number] 2024 Self-pay [id number] 2024 Unknown [id number] 2024 Private Health Insurance [id number] 2019 Unknown CINDY CASEY PPO [id number] 2019-Present PPO [id number] 1970 Unknown [id number] 1970 Unknown [id number] 1970 Unknown [id number] 1970 Unknown [id number] [id number] 1970 Unknown [id number] Unknown [id number] Social History Date Type Detail Facility Tobacco smoking stat [facility] Unknown if ever smoked [facility] Sex Assigned At Not on file [facility] Start: 05-19-2020 Tobacco smoking status Never s moked tobacco (finding) [facility] Start: 1970 Sex Assigned At Male [facility] Sexual Orientation [facility]ital [facility] Start: 02-05-2019 Sex Male (finding) [facility] Tobacco smoking stat [facility] Unknown if ever smoked [facility] Work Phone: Clinical Notes 07-07-2024 to 01-19-2025 [...] face You have trouble talking or seeing [phone] [employer]. [address] [place] [address]. All rights reserved. This information is not intended as a substitute for professional medical care. Always follow your healthcare professional's instructions. Follow Up Care 01/19/2025 16:55:59 With:ESTELLA MORRISON DO Address: [address] [facility] [place] [phone] When:2-4 days [facility] 01-19-2025 Note Discharge Instructions Thank you for allowing [facility] to assist you with your healthcare needs. The following is important discharge information regarding your hospital visit. Diagnosis from Today's Visit Headache What to Do Next Instructions from Your Care Team No qualifying data available. Post Acute Orders No qualifying data available. You Need to Schedule the Following Appointments Follow Up with ESTELLA MORRISON DO When:Within 2-4 days Where:[address] [facility] [place] [address]- [phone] Allergies amoxicillin Rash sulfa rash Medications Please [...] face You have trouble talking or seeing [phone] [employer]. [address] [place] [address]. All rights reserved. This information is not intended as a substitute for professional medical care. Always follow your healthcare professional's instructions. Additional Information VACCINATE! IT SAVES LIVES! Members of the community who have not yet received the COVID-19 vaccine and would like to receive it can visit one of [facility] vaccine clinics. There are many vaccine clinic locations within the [facility]. For locations and available times, please visit [email or web address] [email or web address] It is important to note that some COVID mobile vaccine clinics are held outdoors and may be canceled in rainy or stormy conditions. To learn more about pediatric vaccinations (ages 5-11), we invite you to visit the [facility] webpage. https://www.[email or web address].org/p ages/3389-Uykxz-Msopvozjycl-Freq dtvoag-[email or web address]-Dskrkince.html To learn more about the COVID-19 vaccine, we invite you to visit the CDC website for a list of frequently asked questions. https://www.cdc.gov/coronavirus/ 2019-ncov/vaccines/faq.html [facility] Patient Portal Access Instructions: Stay connected with your healthcare team and access your personal medical information anytime with the [facility] Patient Portal. If you would like a full copy of your medical records please contact the [facility] Medical Records Department Sunday through Sunday between 8a.m. and 4:30p.m. Please follow the directions below to access the portal: 1.Access the email account you provided upon registration to the [facility].2.Look for an invitation email from [facility].3.Open the email and access the invitation link: Accept Invitation to [facility]4.Fill in the required padgett to create your account. Sign into [email or web address] with your username and password that you [...] you will allow to register on the [facility] Patient Portal for access to your information. You can also access the [facility] Patient Portal on the [employer]. Simply click on Health Records under Health Data and then click on the [employer] logo. HOW TO SAFELY DISPOSE OF PRESCRIPTION [...] Call your local pharmacy or go to [email or web address]/[email or web address] to find one close to you.3.Make use of household items: Use cat litter or old coffee grounds to dispose medications if other options are not available. Mix your drugs with these household products, seal them in an airtight container and throw it into the garbage. Call [facility]: [phone] to be sure your drugs can be [...] aware that I should contact my doctor. Patient/Material Requirements Worker Signature: Date/Time: Relationship to Patient: Witness Name/Signature: Date/Time: [facility] Traymichaelle Bowling 01-19-2025 Note Exam Date Time Procedure Performing Provider Status 01/19/25 6:[address] Venogram Head w/ Contrast GUERO LINDQUIST MD; Auth (Verified) [id number] ORIGINAL EXAMINATION: CTV OF THE HEAD WITH [...] PM Ordering Provider: CATRACHITA BULLOCK [facility]06-09-2025 Evaluation + Plan note Future Scheduled Tests Radiology* MRI Brain w/ + w/o Contrast 01/19/25 * XR Spine Cervical AP/LAT 01/19/25 [facility] 11-25-2024 Evaluation + Plan note Future Scheduled Tests Laboratory* Complete Blood Count 07/07/24 Radiology* MRI Brain w/ + w/o Contrast 01/19/25 * XR Spine Cervical AP/LAT 01/19/25 [facility] Evaluation + Plan note Future Appointments Appointment Date:07/18/2024 09:00:00 AM Scheduled Provider:YUNG CLIFFORD MD Location:[facility] Appointment Type:PC Wellness Annual Future Scheduled Tests Laboratory* Complete Blood Count 07/07/24 [facility] Evaluation + Plan note Future Appointments Appointment Date:02/02/2025 08:15:00 AM Scheduled Provider: Location:[facility] Appointment Type:PC Nurse Lab Future Scheduled Tests Laboratory* Complete Blood Count 07/07/24 * Complete Metabolic Panel 01/22/25 Radiology* MRI Brain w/ + w/o Contrast 01/19/25 * XR Spine Cervical AP/LAT 01/19/25 [facility] Evaluation noteNo assessment information available [facility] Work Phone: Hospital course Narrative No data available for this section [facility] Hospital Discharge instructions No data available for this section [facility] Progress note No data available for this section [facility] Reason for referral (narrative)No reason for referral information availableWAultman [facility] Work Phone: Assessments Diagnosis Primary hypertension- Primary [...] or prosecute any alcohol or drug abuse patient.[facility] (unrecognized sect ion and content) No Status Records FoundNo Status Records FoundNo Status Records Found INFORMATION SOURCE (unrecogn ized section and content) DATE CREATED AUTHOR 12/02/2020 [facility] [place] [facility] ([place]) DATE CREATED AUTHOR AUTHOR'S ORGANIZ ATION 01/30/2025 [facility] DATE CREATED AUTHOR AUTHOR'S ORGANIZ ATION 02/08/2025 [facility] Patient Care team informatio n (unrecognized section [...] BE BASED ON THE PRIMARY CLINICAL RECORDS. [facility] [employer] [facility]. provides no warranty or guarantee of the accuracy or completeness of information in this document.
[2025-02-08] MEDS: 0.9% Saline Lock 10 ML Syringe IV (15:32)
[2025-02-08] MEDS: Lactated Ringers 1,000 ML 100 ML IV (15:32)
[2025-02-08 16:52] LABS: Troponin T High Sens 4 HR 20 ng/L (<=22)
[2025-02-09] VITALS (44 sets, daily range): BP systolic 93–122; BP diastolic 49–85; PULSE 76–109; RESP 15–23; TEMP 36.6–37.2; O2SAT 94–100
[2025-02-09] MEDS: 0.9% Normal Saline (500mL Bag) 500 ML 999 ML IV (00:50)
[2025-02-09] MEDS: Lactated Ringers 1,000 ML 100 ML IV (01:44)
--- NOTE | 2025-02-09 02:06 | PCM.HOSP.N ---
Hospitalist Note Patient BP decreased, held metoprolol this evening, drip paused, will given small IVF bolus, will trial dig x 1 dose 250 mcg.
[2025-02-09] MEDS: Digoxin 250 MCG/ML Ampul IV (02:28)
--- NOTE | 2025-02-09 05:55 | EKG12_ITS ---
Test Reason : AM EKG Blood Pressure : */* mmHG Vent. Rate : 81 BPM Atrial Rate : 324 BPM P-R Int : * ms QRS Dur : 102 ms QT Int : 358 ms P-R-T Axes : 79 66 62 degrees QTcB Int : 415 ms Atrial flutter with 4:1 A-V conduction Incomplete right bundle branch block Abnormal ECG When compared with ECG of 08-Feb-2025 11:00, MANUAL COMPARISON REQUIRED DATA IS UNCONFIRMED Confirmed by ADDIE OLIVAREZ, ULYSSES ([id number]), avid editor YANDEL CALVIN ([id number]) on 02/10/2025 6:51:25 AM Referred By: Confirmed By: ULYSSES REAL MD
--- NOTE | 2025-02-09 05:55 | ECHOD_ITS ---
Reason For Study Reason For Study: ATRIAL FLUTTER Procedure This was a 2D Doppler, Color Flow transthoracic echocardiogram. Exam performed portable in patient room. Left Ventricle Mild concentric left ventricular hypertrophy. The estimated ejection fraction is 55-50 %. Right Ventricle Normal right ventricle. Normal systolic function. Atria Normal left atrium. Normal right atrium. Bubble contrast study is positive for PFO. Mitral Valve The mitral valve is structurally normal. No prolapse or stenosis seen. Trivial mitral valve insufficiency. Tricuspid Valve Normal tricuspid valve. Aortic Valve Trisinus/trileaflet aortic valve. Pulmonic Valve The pulmonic valve is not well visualized. Great Vessels The aortic root is not well visualized. Pericardium/Pleural No pericardial effusion. Medication Performed a rapid injection of agitated mix of 9 cc saline and 1cc air to assess for atrial septal defect. MMode/2D Measurements & Calculations LVIDd: 4.7 cm IVSd: 1.2 cm LVOT diam: 2.3 cm LVIDs: 3.5 cm LVPWd: 1.2 cm RVDd: 4.2 cm FS: 25.2 % LVOT area: 4.2 cm2 asc Aorta Diam: 3.5 cm LAV(MOD-bp): 51.7 ml LVAd ap4: 23.7 cm2 LAV(MOD-bp) Indexed: 24.1 ml/m2 LVLd ap4: 7.5 cm LAV(MOD-sp2): 61.5 ml EDV(MOD-sp4): 61.4 ml LAV(MOD-sp4): 41.1 ml EDV(sp4-el): 63.5 ml LVAs ap4: 11.9 cm2 LVLs ap4: 6.2 cm ESV(MOD-sp4): 19.4 ml ESV(sp4-el): 19.2 ml EF(MOD-sp4): 68.5 % EF(sp4-el): 69.7 % LVAd ap2: 26.4 cm2 SV(MOD-sp4): 42.0 ml SV(MOD-sp2): 52.1 ml LVLd ap2: 7.8 cm SI(MOD-sp4): 19.6 ml/m2 SI(MOD-sp2): 24.3 ml/m2 EDV(MOD-sp2): 73.8 ml EDV(sp2-el): 75.7 ml LVAs ap2: 12.3 cm2 LVLs ap2: 6.3 cm ESV(MOD-sp2): 21.7 ml ESV(sp2-el): 20.5 ml EF(MOD-sp2): 70.6 % SV(sp4-el): 44.2 ml Ao sinus diam: 3.[address] Junction: 3.1 cm LA dimension(2D): 3.2 cm LA A4 area: 16.9 cm2 RA A4 area: 13.3 cm2 TAPSE: 1.7 cm Doppler Measurements & Calculations MV A max morteza: 103.3 cm/sec Ao V2 max: 201.7 cm/sec LV V1 max: 151.8 cm/sec Ao max P.3 mmHg LV V1 max P.2 mmHg Ao V2 mean: 165.5 cm/sec LV V1 mean P.0 mmHg Ao mean P.4 mmHg LV V1 mean: 130.8 cm/sec Ao V2 VTI: 33.2 cm LV V1 VTI: 25.8 cm AV (velocity ratio): 0.78 MICKY(I,D): 3.3 cm2 MICKY(V,D): 3.2 cm2 SV(LVOT): 108.0 ml PA V2 max: 117.5 cm/sec ECHO/Echo Complete Interpretation Summary The estimated ejection fraction is 55-50 %. No significant valvular abnormality No previous echo to compare. Ordering Physician: Evan Marion Performed By: Shelbi Florentino RDCS
[2025-02-09 06:20] LABS: Anion Gap 11 (5-15); BUN 17 mg/dL (4-19); BUN/Creat Ratio 19.5 RATIO (10-20); Calcium,Total 8.6 mg/dL (7.6-11.0); Carbon Dioxide 19.8 mmol/L (21.0-32.0); Chloride 104 mmol/L (98-108); Estimated Creatinine Clearance 109.73 ml/min (50-250); Glucose 107 mg/dL (70-99); Potassium 4.2 mmol/L (3.3-5.1)
[2025-02-09] MEDS: Aspirin E.C. 81 MG Tablet PO (10:42)
[2025-02-09 11:27] LABS: Cholesterol 124 mg/dL (<=200); Low Density Lipoprotein Calc. 74 mg/dL; Triglycerides 124 mg/dL; Very Low Density Lipoprotein 25 mg/dL (5-40); cholesterol:hdl ratio screen 4.90
--- NOTE | 2025-02-09 14:30 | PN.HOSP_ITS ---
Reason for Visit Reason for Visit: Diagnoses Unspecified atrial flutter (02/08/25) Objective Data Objective Data Vital Signs: Vital Signs Temp Pulse Resp BP Pulse Ox O2 Del Method 98.3 F 99 17 122/54 H 98 Room Air 02/09/25 09:00 02/09/25 10:41 02/09/25 10:30 02/09/25 10:30 02/09/25 10:30 02/09/25 10:30 Oxygen Delivery Method Room Air Weight: 224 lb 6.889 oz Body Mass Index (BMI) 34.1 Intake & Output: Intake and Output for Last 24 Hours 02/07/25 02/08/25 02/09/25 23:59 23:59 23:59 Intake Total 1046.09 / 1546.09 3942.08 / 3942.08 Output Total 2 / 2 Balance 1046.09 / 1546.09 3940.08 / 3940.08 Lab / Micro Data 02/08/25 10:15 02/09/25 05:22 Labs: Laboratory Results - last 24 hr 02/08/25 15:30: Troponin T Hi Sens 4Hr 20 02/09/25 05:22: Sodium 135, Potassium 4.2, Chloride 104, Carbon Dioxide 19.8 L, Anion Gap 11, BUN 17, Creatinine 0.89, Estim Creat Clear Calc 109.73, Est GFR (MDRD) Non-Af 102, BUN/Creatinine Ratio 19.5, Glucose 107 H, Hemoglobin A1c 5.4, Calcium 8.6, Triglycerides 124, Cholesterol 124, LDL Cholesterol, Calc 74, VLDL Cholesterol 25, HDL Cholesterol 25 L, Cholesterol/HDL Ratio 4.90 Radiography Diagnostic Testing: Radiology Impression Echocardiogram 02/09/25 05:55 Interpretation Summary The estimated ejection fraction is 55-50 %. No significant valvular abnormality No previous echo to compare. Ordering Physician: Evan Marion Performed By: Shelbi Florentino RDCS Physical Exam Narrative Seen and examined I talked to the patient and his in the room. Sometimes last night patient felt like palpitation otherwise is doing good. monitor technician shows atrial flutter 4 to 1 AV conduction. Physical exam: General: Alert, Oriented x3, Cooperative. BMI 34.6 kg/m? obesity grade 1 HEENT: Atraumatic, PERRLA, EOMI, Normocephalic. Oral: No Gingival or Mucosal Lesions/ Ulcerations Neck: Supple, No JVD, Negative Carotid Bruits Chest wall/Lungs: Air entry equal in all lung padgett bilaterally. No crepitation/rhonchi/wheezing. Cardiovascular: Atrial flutter, rate is controlled. No M/G/R Abdomen: Bowel Sounds Present, Soft, Non Tender, Non-Distended : No dysuria. No renal angle tenderness. No suprapubic tenderness. Extremities: No edema, Capillary Refill Less than 3 Seconds Skin: No rashes, No breakdown Musculoskeletal: No acute tenderness on pelvic compression/distraction. No acute tenderness at hip and knee joints. No bony deformity or irregularity of the knee joints. ROM intact. Spine: No lumbar or sacral spine tenderness. Neurological: Cranial nerves II-XII grossly intact, DTR 2+/4. No acute focal neurological deficit. Psych/Mental Status: Normal Affect, Appropriate. Assessment & Plan Assessment/Plan (1) Atrial flutter with rapid ventricular response: PLAN: Plan This is a healthy 54-year-old gentleman who came to ED after he had palpitation during bike ride 1. Atrial flutter with RVR: Initially twelve-lead EKG shows a flutter with variable heart rate and then 4:1 AV conduction. Twelve-lead EKG discussed with the roller stitcher Dr. Skelton and consult requested. Patient is being admitted to PCU as observation. The patient is started on metoprolol tartrate 25 Mg twice daily and Cardizem drip 10 mg drip after he had bolus in the ED. [id number] score is 0 therefore anticoagulant not indicated. D-dimer elevated 0.61 but CTA chest was negative for PE. Started on baby aspirin. 2 serial troponins are negative therefore ACS ruled out. TSH normal. 02/09: All 3 troponins are normal.Last night, patient BP was decreased therefore metoprolol was held, Cardizem drip paused and patient was given IV fluid bolus and digoxin 1 dose 250 mcg. 2D echo done and no significant valvular abnormality. EF 55 to 60%. Talk to the roller stitcher Dr. Skelton earlier in the morning, oral Cardizem ordered in order to transition to IV Cardizem drip. He advised discussed with the roller stitcher Dr. Salinas. To start IV heparin drip without bolus as patient is already had enoxaparin DVT dose which is discontinued now and IV amiodarone bolus and continuous infusion. If he does not get converted by amiodarone, he will need ELI tomorrow a.m. and then electrocardioversion 2. Mild hyperglycemia: BMP shows glucose 111. Denies history of diabetes mellitus. A1c ordered for tomorrow a.m. Urine studies shows mild proteinuria 15 but glucose normal. 02/09: A1c 5.4%. Prediabetes or diabetes ruled out 3. Mild dehydration: BUN 26, creatinine 1.02, BUN/creatinine ratio 25.5 therefore started on IV Ringer lactate 100 mL/h for 2 L. 02/09: BUN/creatinine normal. DVT prophylaxis, moderate risk: Enoxaparin 40 mL subcu daily ordered. Living will/advanced directive/end of life care: Patient does have living will or advanced directive. His is power of litigation attorney associate for health. After discussion of benefits/risks procedures involved with full code, DNR CC arrest and DNR CC, the patient opted for full code. Patient does want artificial life support including intubation, tube feed, ventilator and/chest compression, central venous catheter, vasopressor and DC shock if needed Total time of the visit including total time spent in counseling or coordination of care, (more than 50% of the total time, spent in obtaining medical information from nurses and other ancillary care providers ,explaining to the patient about labs, imaging, diagnosis and management of active complex medical conditions), management of atrial flutter, discussion with the cardiology, review of labs and imaging is 35 minutes. Laboratory Results 02/08/25 15:30: Troponin T Hi Sens 4Hr 20 02/09/25 05:22: Sodium 135, Potassium 4.2, Chloride 104, Carbon Dioxide 19.8 L, Anion Gap 11, BUN 17, Creatinine 0.89, Estim Creat Clear Calc 109.73, Est GFR (MDRD) Non-Af 102, BUN/Creatinine Ratio 19.5, Glucose 107 H, Hemoglobin A1c 5.4, Calcium 8.6, Triglycerides 124, Cholesterol 124, LDL Cholesterol, Calc 74, VLDL Cholesterol 25, HDL Cholesterol 25 L, Cholesterol/HDL Ratio 4.90 Clinical Impression(s) from Imaging Studies Chest X-Ray 02/08/25 10:45 IMPRESSION: Cardiomegaly. No acute findings. Reading Location: [facility] Chest CTA 02/08/25 10:56 IMPRESSION: NORMAL CHEST CTA. NO EVIDENCE OF ACUTE PULMONARY EMBOLISM. Reading Location: [facility] Charges/Coding Visit Charges Inpatient E&M: 36959 Subs Hosp L3
[2025-02-09] MEDS: Amiodarone 150 MG in Dextrose 5%-Water (100mL Bag) 100 ML 600 MG IV BOLUS (15:34)
[2025-02-09] MEDS: Amiodarone 360 MG in Dextrose 5% Viaflo Bag 192.8 ML 33.3 MG CONT INF (16:08)
--- NOTE | 2025-02-09 16:36 | PCM.CONS.C ---
Assessment & Plan Assessment/Plan (1) Atrial flutter with rapid ventricular response: PLAN: Cardiac care plan; 54-year-old patient who had a history of palpitation seen and evaluated in the ED Noted patient has a new onset of atrial flutter. No prior documented cardiac history. Patient initially started on diltiazem, continue to have fast ventricular rate He was symptomatic with palpitation lightheadedness. Cardiac exam S1-S2 is regular No systolic or diastolic murmur Review of the echocardiogram showed LV function preserved with normal ejection fraction No significant valve abnormality Noted bubble study was positive possible patent foramen ovale I discussed cardiac care plan in detail patient started on amiodarone as well as heparin. Also will keep n.p.o. from midnight with the plan of possible ELI guided synchronized cardioversion if he still remain in atrial flutter. Also discussed the finding of the echocardiogram with the patient and the . I reviewed all the current evaluation here in the hospital including the EKG, the echocardiogram, the current lab results as well as current medication Answer all question related to his atrial flutter and management with the and the patient as well as and the nursing staff. Acute diagnosis of the patent vincent ovale is usually by transesophageal echocardiogram and a contrast echo. Versus agitated saline. During ELI with Valsalva maneuver. Wisam Lee MD, [facility] house repairer. HPI Consult Data Date of Consult: 02/09/25 HPI Narrative Reason for Consultation: Atrial flutter with RVR HPI Narrative: RENAN CENTENO, is a 54 M who presents COUNTS INCLUDE 234 BEDS AT THE [facility] Medical History Neck pain Home Medications ?Medication ?Instructions ?Recorded ?Last Taken ?Type NK 02/08/25 Unknown History Allergy/AdvReac Type Severity Reaction Status Date / Time Penicillins (PCN) Allergy Mild Rash Verified 02/08/25 10:16 Sulfa (Sulfonamide Allergy Mild Rash Verified 02/08/25 10:16 Antibiotics) Family History no significant family his Surgical History no surgical history Social History household members: spouse housing: house current occupational status: employed Smoking Status: Never smoker Physical Exam Cardio Cardio Narrative: Cardiac rhythm revealed atrial flutter with RVR Cardiac exam S1-S2 is irregular Chest exam is clear to auscultation bilateral Examination lower extremity no lower extremity edema noted. Risk Stratification Risk Stratification Applicable: No Objective Data Vital Signs: Vital Signs Temp Pulse Resp BP Pulse Ox O2 Del Method 99 F 80 22 H 109/68 94 Room Air 02/09/25 15:33 02/09/25 16:08 02/09/25 16:08 02/09/25 16:08 02/09/25 16:08 02/09/25 16:08 Oxygen Delivery Method Room Air Weight: 224 lb 6.889 oz Body Mass Index (BMI) 34.1 Intake & Output: Intake and Output for Last 24 Hours 02/07/25 02/08/25 02/09/25 23:59 23:59 23:59 Intake Total 1046.09 / 1546.09 4045.08 / 4045.08 Output Total 2 / 2 Balance 1046.09 / 1546.09 4043.08 / 4043.08 Lab / Micro Data 02/08/25 10:15 02/09/25 05:22 Labs: Laboratory Results - last 24 hr 02/08/25 15:30: Troponin T Hi Sens 4Hr 20 02/09/25 05:22: Sodium 135, Potassium 4.2, Chloride 104, Carbon Dioxide 19.8 L, Anion Gap 11, BUN 17, Creatinine 0.89, Estim Creat Clear Calc 109.73, Est GFR (MDRD) Non-Af 102, BUN/Creatinine Ratio 19.5, Glucose 107 H, Hemoglobin A1c 5.4, Calcium 8.6, Triglycerides 124, Cholesterol 124, LDL Cholesterol, Calc 74, VLDL Cholesterol 25, HDL Cholesterol 25 L, Cholesterol/HDL Ratio 4.90 Cardiology Labs/Tests 02/09/25 05:22: Sodium 135, Potassium 4.2, Chloride 104, Carbon Dioxide 19.8 L, Anion Gap 11, BUN 17, Creatinine 0.89, Est GFR (MDRD) Non-Af 102, BUN/Creatinine Ratio 19.5, Glucose 107 H, Hemoglobin A1c 5.4, Calcium 8.6, Triglycerides 124, Cholesterol 124, VLDL Cholesterol 25, HDL Cholesterol 25 L, Cholesterol/HDL Ratio 4.90 Rhythm: EKG: ECHO: Stress Test: Cardiac Cath: PCI: CT Surgery: Holter monitor: EPS: PPM: CXR: Chest CT Scan: Radiography Diagnostic Testing: Radiology Impression Echocardiogram 02/09/25 05:55 Interpretation Summary The estimated ejection fraction is 55-50 %. No significant valvular abnormality No previous echo to compare. Ordering Physician: Evan Marion Performed By: Shelbi Florentino RDCS
[2025-02-09 16:47] LABS: Hematocrit 35.7 % (40-54); Hemoglobin 12.0 g/dL (13.0-16.5); Immature Granulocytes Count 0.040 X10^3/uL (0.0-0.0); Mean Corp Hgb Conc 33.6 g/dL (32-36); Mean Corpuscular Volume 93.0 fL (80-94); Mean Platelet Vol. 9.7 fl (6.2-12.0); NRBC Flagged by Analyzer 0 % (0-5); POSITIVE DIFFERENTIAL YES; Platelet Count 310 K/mm3 (150-450); RBC Distribution Width CV 13.1 % (11.6-14.6); RBC Distribution Width SD 44.6 fl (35.1-43.9); Red Blood Count 3.84 M/mm3 (4.6-6.2); White Blood Count 4.0 K/mm3 (4.4-11.0)
[2025-02-09 16:52] LABS: Partial Thromboplast Time 27.8 Seconds (24.1-36.2); Prothrombin Time (Protime)PT. 14.0 SECONDS (11.7-14.9)
[2025-02-09] MEDS: 0.9% Saline Lock 10 ML Syringe IV (17:52)
[2025-02-09] MEDS: HEPARIN/D5w 25,000 UNITS 25,000 UNITS/250 ML IV.SOLN. 15 UNITS CONT INF (17:52)
[2025-02-09] MEDS: Amiodarone 360 MG in Dextrose 5% Viaflo Bag 192.8 ML 16.7 MG CONT INF (22:19)
[2025-02-10] VITALS (27 sets, daily range): BP systolic 98–136; BP diastolic 54–98; PULSE 76–92; RESP 12–21; TEMP 36.6–37.1; O2SAT 94–99
[2025-02-10 00:06] LABS: Partial Thromboplast Time 49.6 Seconds (24.1-36.2)
[2025-02-10] MEDS: Heparin Injection (Vial) 5,000 UNIT/ML VIAL IV ×2 (00:35→19:50)
[2025-02-10] MEDS: 0.9% Saline Lock 10 ML Syringe IV ×2 (00:35→21:48)
[2025-02-10 06:46] LABS: Partial Thromboplast Time 65.0 Seconds (24.1-36.2)
[2025-02-10] MEDS: Amiodarone 360 MG in Dextrose 5% Viaflo Bag 192.8 ML 16.7 MG CONT INF ×2 (10:01→21:47)
[2025-02-10] MEDS: HEPARIN/D5w 25,000 UNITS 25,000 UNITS/250 ML IV.SOLN. 16 UNITS CONT INF (10:02)
--- NOTE | 2025-02-10 11:27 | PN.HOSP_ITS ---
Reason for Visit Reason for Visit: Diagnoses Unspecified atrial flutter (02/09/25) Objective Data Objective Data Vital Signs: Vital Signs Temp Pulse Resp BP Pulse Ox O2 Del Method 97.9 F 78 16 122/83 H 98 Room Air 02/10/25 11:00 02/10/25 11:00 02/10/25 11:00 02/10/25 11:00 02/10/25 11:00 02/10/25 11:00 Oxygen Delivery Method Room Air Weight: 224 lb 6.889 oz Body Mass Index (BMI) 34.1 Intake & Output: Intake and Output for Last 24 Hours 02/08/25 02/09/25 02/10/25 23:59 23:59 23:59 Intake Total 1046.09 / 1546.09 5056.49 / 5073.19 450.13 / 450.13 Output Total 2 / 2 Balance 1046.09 / 1546.09 5054.49 / 5071.19 450.13 / 450.13 Lab / Micro Data 02/09/25 15:55 02/09/25 05:22 Labs: Laboratory Results - last 24 hr 02/09/25 05:22: Hemoglobin A1c 5.4, Triglycerides 124, Cholesterol 124, LDL Cholesterol, Calc 74, VLDL Cholesterol 25, HDL Cholesterol 25 L, Cholesterol/HDL Ratio 4.90 02/09/25 15:55: WBC 4.0 L, RBC 3.84 L, Hgb 12.0 L, Hct 35.7 L, MCV 93.0, MCH 31.3, MCHC 33.6, RDW Std Deviation 44.6 H, RDW Coeff of Kapil 13.1, Plt Count 310, MPV 9.7, Immature Gran % (Auto) 1.000 H, Neut % (Auto) 73.4 H, Lymph % (Auto) 12.2 L, [place] % (Auto) 7.7, Eos % (Auto) 5.5 H, Baso % (Auto) 0.2, Absolute Neuts (auto) 3.0, Absolute Lymphs (auto) 0.49 L, Nucleated RBC % 0, PT 14.0, INR 1.1, APTT 27.8 02/09/25 23:42: APTT 49.6 H 02/10/25 06:10: APTT 65.0 H Radiography Diagnostic Testing: Radiology Impression Echocardiogram 02/09/25 05:55 Interpretation Summary The estimated ejection fraction is 55-50 %. No significant valvular abnormality No previous echo to compare. Ordering Physician: Evan Marion Performed By: Shelbi Florentino MIKE Physical Exam Narrative Seen and examined Patient denies any symptoms of palpitation dizziness last night. Currently on IV heparin drip and amiodarone drip. Still has flutter monitor and storage bin tender shows atrial flutter 4 to 1 AV conduction. Physical exam: General: Alert, Oriented x3, Cooperative. BMI 34.6 kg/m? obesity grade 1 HEENT: Atraumatic, PERRLA, EOMI, Normocephalic. Oral: No Gingival or Mucosal Lesions/ Ulcerations Neck: Supple, No JVD, Negative Carotid Bruits Chest wall/Lungs: Air entry equal in all lung padgett bilaterally. No crepitation/rhonchi/wheezing. Cardiovascular: Atrial flutter, rate is controlled. No M/G/R Abdomen: Bowel Sounds Present, Soft, Non Tender, Non-Distended : No dysuria. No renal angle tenderness. No suprapubic tenderness. Extremities: No edema, Capillary Refill Less than 3 Seconds Skin: No rashes, No breakdown Musculoskeletal: No acute tenderness on pelvic compression/distraction. No acute tenderness at hip and knee joints. No bony deformity or irregularity of the knee joints. ROM intact. Spine: No lumbar or sacral spine tenderness. Neurological: Cranial nerves II-XII grossly intact, DTR 2+/4. No acute focal neurological deficit. Psych/Mental Status: Normal Affect, Appropriate. Assessment & Plan Assessment/Plan (1) Atrial flutter with rapid ventricular response: PLAN: Plan This is a healthy 54-year-old gentleman who came to ED after he had palpitation during bike ride 1. Atrial flutter with RVR: Initially twelve-lead EKG shows a flutter with variable heart rate and then 4:1 AV conduction. Twelve-lead EKG discussed with the learning program manager Dr. Skelton and consult requested. Patient is being admitted to PCU as observation. The patient is started on metoprolol tartrate 25 Mg twice daily and Cardizem drip 10 mg drip after he had bolus in the ED. [id number] score is 0 therefore anticoagulant not indicated. D-dimer elevated 0.61 but CTA chest was negative for PE. Started on baby aspirin. 2 serial troponins are negative therefore ACS ruled out. TSH normal. 02/09: All 3 troponins are normal.Last night, patient BP was decreased therefore metoprolol was held, Cardizem drip paused and patient was given IV fluid bolus and digoxin 1 dose 250 mcg. 2D echo done and no significant valvular abnormality. EF 55 to 60%. Talk to the learning program manager Dr. Skelton earlier in the morning, oral Cardizem ordered in order to transition to IV Cardizem drip. He advised discussed with the learning program manager Dr. Salinas. To start IV heparin drip without bolus as patient is already had enoxaparin DVT dose which is discontinued now and IV amiodarone bolus and continuous infusion. If he does not get converted by amiodarone, he will need ELI tomorrow a.m. and then electrocardioversion 02/10: Patient is in atrial flutter 4 to 1, AV conduction. Discussed with Dr. Salinas. Patient did not complete 24 hours of amiodarone therefore still has fair chance of conversion from amiodarone drip. If not then ELI and cardioversion tomorrow a.m. This was communicated to the patient. Cardiac diet resumed. 2. Mild hyperglycemia: BMP shows glucose 111. Denies history of diabetes mellitus. A1c ordered for tomorrow a.m. Urine studies shows mild proteinuria 15 but glucose normal. 02/09: A1c 5.4%. Prediabetes or diabetes ruled out 3. Mild dehydration: BUN 26, creatinine 1.02, BUN/creatinine ratio 25.5 therefore started on IV Ringer lactate 100 mL/h for 2 L. 02/09: BUN/creatinine normal. DVT prophylaxis, moderate risk: Enoxaparin 40 mL subcu daily ordered. Living will/advanced directive/end of life care: Patient does have living will or advanced directive. His is power of city attorney for health. After discussion of benefits/risks procedures involved with full code, DNR CC arrest and DNR CC, the patient opted for full code. Patient does want artificial life support including intubation, tube feed, ventilator and/chest compression, central venous catheter, vasopressor and DC shock if needed Total time of the visit including total time spent in counseling or coordination of care, (more than 50% of the total time, spent in obtaining medical information from nurses and other ancillary care providers ,explaining to the patient about labs, imaging, diagnosis and management of active complex medical conditions), management of atrial flutter, discussion with the cardiology, review of labs and imaging is 35 minutes. Laboratory Results 02/08/25 15:30: Troponin T Hi Sens 4Hr 20 02/09/25 05:22: Sodium 135, Potassium 4.2, Chloride 104, Carbon Dioxide 19.8 L, Anion Gap 11, BUN 17, Creatinine 0.89, Estim Creat Clear Calc 109.73, Est GFR (MDRD) Non-Af 102, BUN/Creatinine Ratio 19.5, Glucose 107 H, Hemoglobin A1c 5.4, Calcium 8.6, Triglycerides 124, Cholesterol 124, LDL Cholesterol, Calc 74, VLDL Cholesterol 25, HDL Cholesterol 25 L, Cholesterol/HDL Ratio 4.90 Clinical Impression(s) from Imaging Studies Chest X-Ray 02/08/25 10:45 IMPRESSION: Cardiomegaly. No acute findings. Reading Location: [id number] Chest CTA 02/08/25 10:56 IMPRESSION: NORMAL CHEST CTA. NO EVIDENCE OF ACUTE PULMONARY EMBOLISM. Reading Location: [id number] Charges/Coding Visit Charges Inpatient E&M: 78133 Subs Hosp L2
[2025-02-10 12:45] LABS: Partial Thromboplast Time 59.9 Seconds (24.1-36.2)
--- NOTE | 2025-02-10 14:01 | PCM.PN.CARD ---
Subjective Subjective Comfortable sitting in the bed Still in atrial flutter with controlled, ventricular rate Objective Data Vital Signs: Vital Signs Temp Pulse Resp BP Pulse Ox O2 Del Method 97.9 F 77 16 129/82 H 96 Room Air 02/10/25 11:00 02/10/25 13:00 02/10/25 13:00 02/10/25 13:00 02/10/25 13:00 02/10/25 13:00 Oxygen Delivery Method Room Air Weight: 224 lb 6.889 oz Body Mass Index (BMI) 34.1 Intake & Output: Intake and Output for Last 24 Hours 02/08/25 02/09/25 02/10/25 23:59 23:59 23:59 Intake Total 1046.09 / 1546.09 5056.49 / 5073.19 515.00 / 515.00 Output Total / Balance 1046.09 / 1546.09 5054.49 / 5071.19 515.00 / 515.00 Lab / Micro Data 02/09/25 15:55 02/09/25 05:22 Labs: Laboratory Results - last 24 hr 02/09/25 15:55: WBC 4.0 L, RBC 3.84 L, Hgb 12.0 L, Hct 35.7 L, MCV 93.0, MCH 31.3, MCHC 33.6, RDW Std Deviation 44.6 H, RDW Coeff of Kapil 13.1, Plt Count 310, MPV 9.7, Immature Gran % (Auto) 1.000 H, Neut % (Auto) 73.4 H, Lymph % (Auto) 12.2 L, [place] % (Auto) 7.7, Eos % (Auto) 5.5 H, Baso % (Auto) 0.2, Absolute Neuts (auto) 3.0, Absolute Lymphs (auto) 0.49 L, Nucleated RBC % 0, PT 14.0, INR 1.1, APTT 27.8 02/09/25 23:42: APTT 49.6 H 02/10/25 06:10: APTT 65.0 H 02/10/25 12:20: APTT 59.9 H Cardiology Labs/Tests 02/09/25 15:55: WBC 4.0 L, RBC 3.84 L, Hgb 12.0 L, Hct 35.7 L, MCV 93.0, MCH 31.3, MCHC 33.6, Plt Count 310, MPV 9.7, Immature Gran % (Auto) 1.000 H, Neut % (Auto) 73.4 H, Lymph % (Auto) 12.2 L, [place] % (Auto) 7.7, Eos % (Auto) 5.5 H, Baso % (Auto) 0.2, Absolute Neuts (auto) 3.0, Nucleated RBC % 0, PT 14.0, INR 1.1, APTT 27.8 02/09/25 23:42: APTT 49.6 H 02/10/25 06:10: APTT 65.0 H 02/10/25 12:20: APTT 59.9 H Rhythm: EKG: ECHO: Stress Test: Cardiac Cath: PCI: CT Surgery: Holter monitor: EPS: PPM: CXR: Chest CT Scan: Radiography Diagnostic Testing: Radiology Impression Echocardiogram 02/09/25 05:55 Interpretation Summary The estimated ejection fraction is 55-50 %. No significant valvular abnormality No previous echo to compare. Ordering Physician: Evan Marion Performed By: Shelbi Florentino RDCS Physical Exam Cardio Cardio Narrative: Cardiac exam revealed evidence of atrial flutter. Cardiac examination S1-S2 is regular Chest examination clear to auscultation bilateral Examination lower extremity no lower extremity edema. Assessment & Plan Assessment/Plan (1) Atrial fibrillation, new onset: PLAN: Cardiac care plan; 54-year-old patient with new onset atrial flutter with variable ventricular rate better controlled now on the current treatment with amiodarone. In addition to beta-kailey metoprolol. The patient has cardiac evaluation with cardiac biomarkers which were normal Further assessment by echocardiogram LV function Within normal ejection fraction in the range of 55 - 60% Cardiac care plan discussed in detail we will continue on amiodarone and heparin I discussed option of ELI guided synchronized cardioversion Versus completion of anticoagulation with OAC possible Eliquis 5 mg twice daily For a total of 6-8 weeks and elective synchronized cardioversion without a ELI. Patient would like to stay in hospital and will continue on amiodarone Will keep n.p.o. from midnight with the plan of ELI synchronized cardioversion if he remains still in atrial flutter Wisam Lee MD,[facility] (2) Atrial flutter with controlled response:
--- NOTE | 2025-02-10 14:58 | CASEMGMT ---
Dx: Afib RVR LACE: 1 6-Clicks: 24 Medical record reviewed and patient evaluated for identification of discharge planning needs. Based on this review, at this time criteria are not present to indicate a need for discharge planning. Will remain available to assist with discharge planning needs as identified or requested.
[2025-02-10 19:23] LABS: Partial Thromboplast Time 47.7 Seconds (24.1-36.2)
[2025-02-11] VITALS (29 sets, daily range): BP systolic 106–157; BP diastolic 64–101; PULSE 75–104; RESP 13–22; TEMP 36.6; O2SAT 94–100
[2025-02-11] MEDS: HEPARIN/D5w 25,000 UNITS 25,000 UNITS/250 ML IV.SOLN. 17 UNITS CONT INF ×2 (01:15→14:53)
[2025-02-11 02:22] LABS: Hematocrit 38.6 % (40-54); Hemoglobin 12.3 g/dL (13.0-16.5); Immature Granulocytes Count 0.070 X10^3/uL (0.0-0.0); Mean Corp Hgb Conc 31.9 g/dL (32-36); Mean Corpuscular Volume 96.5 fL (80-94); Mean Platelet Vol. 9.3 fl (6.2-12.0); NRBC Flagged by Analyzer 0 % (0-5); Platelet Count 313 K/mm3 (150-450); RBC Distribution Width CV 13.1 % (11.6-14.6); RBC Distribution Width SD 46.4 fl (35.1-43.9); Red Blood Count 4.00 M/mm3 (4.6-6.2); White Blood Count 9.6 K/mm3 (4.4-11.0)
[2025-02-11 02:32] LABS: Partial Thromboplast Time 62.1 Seconds (24.1-36.2)
[2025-02-11 02:51] LABS: Anion Gap 10 (5-15); BUN 17 mg/dL (4-19); BUN/Creat Ratio 16.6 RATIO (10-20); Calcium,Total 9.1 mg/dL (7.6-11.0); Carbon Dioxide 24.5 mmol/L (21.0-32.0); Chloride 104 mmol/L (98-108); Estimated Creatinine Clearance 95.74 ml/min (50-250); Glucose 137 mg/dL (70-99); Potassium 4.2 mmol/L (3.3-5.1)
--- NOTE | 2025-02-11 05:55 | EKG12_ITS ---
Test Reason : AM EKG Blood Pressure : */* mmHG Vent. Rate : 76 BPM Atrial Rate : 304 BPM P-R Int : * ms QRS Dur : 104 ms QT Int : 398 ms P-R-T Axes : 81 52 51 degrees QTcB Int : 447 ms Atrial flutter with 4:1 A-V conduction Incomplete right bundle branch block Nonspecific ST abnormality Abnormal ECG When compared with ECG of 09-Feb-2025 05:48, No significant change was found Confirmed by ADDIE OLIVAREZ, ULYSSES ([id number]), food editor CARMELA MONAHAN ([id number]) on 02/11/2025 1:52:54 PM Referred By: Confirmed By: ULYSSES REAL MD
--- NOTE | 2025-02-11 08:35 | EKG12_ITS ---
Test Reason : Blood Pressure : */* mmHG Vent. Rate : 77 BPM Atrial Rate : 308 BPM P-R Int : * ms QRS Dur : 100 ms QT Int : 386 ms P-R-T Axes : 67 50 51 degrees QTcB Int : 436 ms Atrial flutter with 4:1 A-V conduction Nonspecific ST abnormality Abnormal ECG When compared with ECG of 11-Feb-2025 05:39, MANUAL COMPARISON REQUIRED DATA IS UNCONFIRMED Confirmed by ADDIE OLIVAREZ, ULYSSES ([id number]), school photograph editor CARMELA MONAHAN ([id number]) on 02/12/2025 5:58:58 AM Referred By: Confirmed By: ULYSSES REAL MD
[2025-02-11] MEDS: Amiodarone 360 MG in Dextrose 5% Viaflo Bag 192.8 ML 16.7 MG CONT INF ×2 (08:55→21:14)
[2025-02-11 09:16] LABS: Partial Thromboplast Time 57.5 Seconds (24.1-36.2)
--- NOTE | 2025-02-11 10:28 | ECHOTEE_ITS ---
Reason For Study Reason For Study: AFLUTTER Medication Fentanyl 75 mcg given slow IVP. Performed a rapid injection of agitated mix of 9 cc saline and 1cc air to assess for atrial septal defect. Versed 3 mg given slow IVP. ELI probe 6VT-D (SN [id number]) passed without difficulty. No complications were noted. Cetacaine Topical [place] given X3 orally. Left Ventricle Left ventricular systolic function is normal. Atria Bubble contrast study is positive for PFO. No thrombus is detected in the left atrial appendage. Mitral Valve Trivial mitral valve insufficiency. Tricuspid Valve Trivial tricuspid valve insufficiency. Aortic Valve Trivial aortic valve insufficiency. ECHO/Echo Transesophageal (ELI) Interpretation Summary Transesophageal echocardiogram. Patient has atrial flutter controlled rate on treatment with amiodarone and hep servando. Consent; Risk and benefits explained patient elected to proceed informed consent obtaine d. Moderate sedation. Patient was given a total of 75 mcg of fentanyl and 3 mg of Versed. Procedure in detail; The probe passed without difficulty Multiple views were obtained including transesophageal images Left atrial appendage well-visualized With no evidence of thrombus. LV systolic function is within normal. Bicaval view obtained with a bubble study which is positive/using agitated sali ne. Conclusion; ELI revealed no intracardiac thrombus, in particular left atrial appendage well -visualized in 4 views 0, 35, 90, 135 Positive bubble study/PFO Wisam Lee MD,[facility] log peeler Ordering Physician: Wisam Lee Performed By: Shelbi Florentino, RUST
--- NOTE | 2025-02-11 13:36 | PCM.PN.HOSP ---
Reason for Visit Reason for Visit: Diagnoses Unspecified atrial fibrillation (02/09/25) Unspecified atrial flutter (02/09/25) Objective Data Objective Data Vital Signs: Vital Signs Temp Pulse Resp BP Pulse Ox O2 Del Method 97.8 F 100 18 157/87 H 96 Room Air 02/11/25 08:59 02/11/25 12:15 02/11/25 12:15 02/11/25 12:15 02/11/25 12:15 02/11/25 12:15 Oxygen Delivery Method Room Air Weight: 224 lb 6.889 oz Body Mass Index (BMI) 34.1 Intake & Output: Intake and Output for Last 24 Hours 02/09/25 02/10/25 02/11/25 23:59 23:59 23:59 Intake Total 5056.49 / 5073.19 807.33 / 807.33 310.30 / 310.30 Output Total 2 / 2 Balance 5054.49 / 5071.19 807.33 / 807.33 310.30 / 310.30 Lab / Micro Data 02/11/25 02:00 02/11/25 02:00 Labs: Laboratory Results - last 24 hr 02/10/25 17:41: APTT 47.7 H 02/11/25 02:00: WBC 9.6, RBC 4.00 L, Hgb 12.3 L, Hct 38.6 L, MCV 96.5 H, MCH 30.8, MCHC 31.9 L D, RDW Std Deviation 46.4 H, RDW Coeff of Kapil 13.1, Plt Count 313, MPV 9.3, Immature Gran % (Auto) 0.700, Neut % (Auto) 69.9, Lymph % (Auto) 16.5 L, [place] % (Auto) 7.8, Eos % (Auto) 4.6, Baso % (Auto) 0.5, Absolute Neuts (auto) 6.7, Absolute Lymphs (auto) 1.59, Nucleated RBC % 0, APTT 62.1 H, Sodium 138, Potassium 4.2, Chloride 104, Carbon Dioxide 24.5, Anion Gap 10, BUN 17, Creatinine 1.02, Estim Creat Clear Calc 95.74, Est GFR (MDRD) Non-Af 87, BUN/Creatinine Ratio 16.6, Glucose 137 H, Calcium 9.1 02/11/25 08:18: APTT 57.5 H Radiography Diagnostic Testing: Radiology Impression Transesophageal Echocardiogram 02/11/25 10:28 Interpretation Summary Transesophageal echocardiogram. Patient has atrial flutter controlled rate on treatment with amiodarone and heparin. Consent; Risk and benefits explained patient elected to proceed informed consent obtained. Moderate sedation. Patient was given a total of 75 mcg of fentanyl and 3 mg of Versed. Procedure in detail; The probe passed without difficulty Multiple views were obtained including transesophageal images Left atrial appendage well-visualized With no evidence of thrombus. LV systolic function is within normal. Bicaval view obtained with a bubble study which is positive/using agitated saline. Conclusion; ELI revealed no intracardiac thrombus, in particular left atrial appendage well-visualized in 4 views 0, 35, 90, 135 Positive bubble study/PFO Wisam Lee MD,[facility] medical education manager Ordering Physician: Wisam Lee Performed By: Shelbi Florentino, [facility] Physical Exam Narrative Seen and examined Overall no acute symptoms last 2 days ELI today for currently on IV heparin drip and amiodarone drip. 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 Physical exam: General: Alert, Oriented x3, Cooperative. BMI 34.6 kg/m? obesity grade 1 HEENT: Atraumatic, PERRLA, EOMI, Normocephalic. Oral: No Gingival or Mucosal Lesions/ Ulcerations Neck: Supple, No JVD, Negative Carotid Bruits Chest wall/Lungs: Air entry equal in all lung padgett bilaterally. No crepitation/rhonchi/wheezing. Cardiovascular: Atrial flutter, rate is controlled. No M/G/R Abdomen: Bowel Sounds Present, Soft, Non Tender, Non-Distended : No dysuria. No renal angle tenderness. No suprapubic tenderness. Extremities: No edema, Capillary Refill Less than 3 Seconds Skin: No rashes, No breakdown Musculoskeletal: No acute tenderness on pelvic compression/distraction. No acute tenderness at hip and knee joints. Spine: No lumbar or sacral spine tenderness. Neurological: Cranial nerves II-XII grossly intact, DTR 2+/4. No acute focal neurological deficit. Psych/Mental Status: Normal Affect, Appropriate. Assessment & Plan Assessment/Plan (1) Atrial flutter with rapid ventricular response: PLAN: Plan This is a healthy 54-year-old gentleman who came to ED after he had palpitation during bike ride 1. Atrial flutter with RVR: Initially twelve-lead EKG shows a flutter with variable heart rate and then 4:1 AV conduction. Twelve-lead EKG discussed with the forestry patrolman Dr. Skelton and consult requested. Patient is being admitted to PCU as observation. The patient is started on metoprolol tartrate 25 Mg twice daily and Cardizem drip 10 mg drip after he had bolus in the ED. [id number] score is 0 therefore anticoagulant not indicated. D-dimer elevated 0.61 but CTA chest was negative for PE. Started on baby aspirin. 2 serial troponins are negative therefore ACS ruled out. TSH normal. 02/09: All 3 troponins are normal.Last night, patient BP was decreased therefore metoprolol was held, Cardizem drip paused and patient was given IV fluid bolus and digoxin 1 dose 250 mcg. 2D echo done and no significant valvular abnormality. EF 55 to 60%. Talk to the forestry patrolman Dr. Skelton earlier in the morning, oral Cardizem ordered in order to transition to IV Cardizem drip. He advised discussed with the forestry patrolman Dr. Salinas. To start IV heparin drip without bolus as patient is already had enoxaparin DVT dose which is discontinued now and IV amiodarone bolus and continuous infusion. If he does not get converted by amiodarone, he will need ELI tomorrow a.m. and then electrocardioversion 02/10: Patient is in atrial flutter 4 to 1, AV conduction. Discussed with Dr. Salinas. Patient did not complete 24 hours of amiodarone therefore still has fair chance of conversion from amiodarone drip. If not then ELI and cardioversion tomorrow a.m. This was communicated to the patient. Cardiac diet resumed. 02/11: ELI reported left atrial appendage well-visualized with no evidence of thrombus, LV systolic function normal. Bubble study positive for PFO with agitated saline. There was plan for electrocardioversion but Dr. Murray not available for sedation therefore postponed for tomorrow 2. Mild hyperglycemia: BMP shows glucose 111. Denies history of diabetes mellitus. A1c ordered for tomorrow a.m. Urine studies shows mild proteinuria 15 but glucose normal. 02/09: A1c 5.4%. Prediabetes or diabetes ruled out 3. Mild dehydration: BUN 26, creatinine 1.02, BUN/creatinine ratio 25.5 therefore started on IV Ringer lactate 100 mL/h for 2 L. 02/09: BUN/creatinine normal. DVT prophylaxis, moderate risk: Enoxaparin 40 mL subcu daily ordered. Living will/advanced directive/end of life care: Patient does have living will or advanced directive. His is power of estate attorney for health. After discussion of benefits/risks procedures involved with full code, DNR CC arrest and DNR CC, the patient opted for full code. Patient does want artificial life support including intubation, tube feed, ventilator and/chest compression, central venous catheter, vasopressor and DC shock if needed Total time of the visit including total time spent in counseling or coordination of care, (more than 50% of the total time, spent in obtaining medical information from nurses and other ancillary care providers ,explaining to the patient about labs, imaging, diagnosis and management of active complex medical conditions), management of atrial flutter, discussion with the cardiology, review of labs and imaging is 35 minutes. Laboratory Results 02/08/25 15:30: Troponin T Hi Sens 4Hr 20 Hemoglobin A1c 5.4, Calcium 8.6, Triglycerides 124, Cholesterol 124, LDL Cholesterol, Calc 74, VLDL Cholesterol 25, HDL Cholesterol 25 L, Cholesterol/HDL Ratio 4.90 02/10/25 17:41: APTT 47.7 H 02/11/25 02:00: WBC 9.6, RBC 4.00 L, Hgb 12.3 L, Hct 38.6 L, MCV 96.5 H, MCH 30.8, MCHC 31.9 L D, RDW Std Deviation 46.4 H, RDW Coeff of Kapil 13.1, Plt Count 313, MPV 9.3, Immature Gran % (Auto) 0.700, Neut % (Auto) 69.9, Lymph % (Auto) 16.5 L, [place] % (Auto) 7.8, Eos % (Auto) 4.6, Baso % (Auto) 0.5, Absolute Neuts (auto) 6.7, Absolute Lymphs (auto) 1.59, Nucleated RBC % 0, APTT 62.1 H, Sodium 138, Potassium 4.2, Chloride 104, Carbon Dioxide 24.5, Anion Gap 10, BUN 17, Creatinine 1.02, Estim Creat Clear Calc 95.74, Est GFR (MDRD) Non-Af 87, BUN/Creatinine Ratio 16.6, Glucose 137 H, Calcium 9.1 02/11/25 08:18: APTT 57.5 H Clinical Impression(s) from Imaging Studies Chest X-Ray 02/08/25 10:45 IMPRESSION: Cardiomegaly. No acute findings. Reading Location: [facility] Chest CTA 02/08/25 10:56 IMPRESSION: NORMAL CHEST CTA. NO EVIDENCE OF ACUTE PULMONARY EMBOLISM. Reading Location: [facility] Echocardiogram 02/09/25 05:55 Interpretation Summary The estimated ejection fraction is 55-50 %. No significant valvular abnormality No previous echo to compare. Ordering Physician: Evan Marion Performed By: Shelbi Florentino RDCS Transesophageal Echocardiogram 02/11/25 10:28 Interpretation Summary Transesophageal echocardiogram. Patient has atrial flutter controlled rate on treatment with amiodarone and heparin. Consent; Risk and benefits explained patient elected to proceed informed consent obtained. Moderate sedation. Patient was given a total of 75 mcg of fentanyl and 3 mg of Versed. Procedure in detail; The probe passed without difficulty Multiple views were obtained including transesophageal images Left atrial appendage well-visualized With no evidence of thrombus. LV systolic function is within normal. Bicaval view obtained with a bubble study which is positive/using agitated saline. Conclusion; ELI revealed no intracardiac thrombus, in particular left atrial appendage well-visualized in 4 views 0, 35, 90, 135 Positive bubble study/PFO Wisam Lee MD,[facility] medical education manager Ordering Physician: Wisam Lee Performed By: Shelbi Florentino, [facility] Charges/Coding Visit Charges Inpatient E&M: 73701 Subs Hosp L2
[2025-02-11] MEDS: 0.9% Saline Lock 10 ML Syringe IV (21:14)
[2025-02-12] VITALS (19 sets, daily range): BP systolic 104–128; BP diastolic 62–89; PULSE 63–80; RESP 13–20; TEMP 36.6–37.1; O2SAT 92–99
[2025-02-12 05:26] LABS: T4 Total, Thyroxin 6.9 ug/dL (4.5-12.1)
[2025-02-12 05:27] LABS: Partial Thromboplast Time 59.4 Seconds (24.1-36.2)
[2025-02-12] MEDS: HEPARIN/D5w 25,000 UNITS 25,000 UNITS/250 ML IV.SOLN. 17 UNITS CONT INF (05:49)
--- NOTE | 2025-02-12 05:55 | EKG12_ITS ---
Test Reason : AFLUTTER Blood Pressure : */* mmHG Vent. Rate : 63 BPM Atrial Rate : 63 BPM P-R Int : 236 ms QRS Dur : 116 ms QT Int : 424 ms P-R-T Axes : 43 20 14 degrees QTcB Int : 433 ms Sinus rhythm with 1st degree A-V block Possible Left atrial enlargement Incomplete right bundle branch block Nonspecific T wave abnormality Abnormal ECG When compared with ECG of 12-Feb-2025 06:13, MANUAL COMPARISON REQUIRED DATA IS UNCONFIRMED Confirmed by ADDIE OLIVAREZ, ULYSSES ([id number]), loan expeditor YANDEL CALVIN ([id number]) on 02/16/2025 9:47:29 AM Referred By: Confirmed By: ULYSSES REAL MD
--- NOTE | 2025-02-12 06:13 | EKG12_ITS ---
Test Reason : Blood Pressure : */* mmHG Vent. Rate : 76 BPM Atrial Rate : 304 BPM P-R Int : * ms QRS Dur : 110 ms QT Int : 386 ms P-R-T Axes : 79 52 64 degrees QTcB Int : 434 ms Atrial flutter with 4:1 A-V conduction Incomplete right bundle branch block Abnormal ECG When compared with ECG of 11-Feb-2025 09:27, No significant change was found Confirmed by ADDIE OLIVAREZ, ULYSSES ([id number]), film and video editor CARMELA MONAHAN ([id number]) on 02/12/2025 1:26:20 PM Referred By: Confirmed By: ULYSSES REAL MD
[2025-02-12 07:31] LABS: T3 Total - Triiodothyronine 0.98 ng/mL (0.80-2.00)
[2025-02-12 07:35] LABS: Hematocrit 38.1 % (40-54); Hemoglobin 12.6 g/dL (13.0-16.5); Immature Granulocytes Count 0.090 X10^3/uL (0.0-0.0); Mean Corp Hgb Conc 33.1 g/dL (32-36); Mean Corpuscular Volume 93.8 fL (80-94); Mean Platelet Vol. 10.4 fl (6.2-12.0); NRBC Flagged by Analyzer 0 % (0-5); Platelet Count 360 K/mm3 (150-450); RBC Distribution Width CV 13.2 % (11.6-14.6); RBC Distribution Width SD 45.1 fl (35.1-43.9); Red Blood Count 4.06 M/mm3 (4.6-6.2); White Blood Count 10.2 K/mm3 (4.4-11.0)
[2025-02-12 08:28] LABS: Anion Gap 13 (5-15); BUN 14 mg/dL (4-19); BUN/Creat Ratio 14.1 RATIO (10-20); Calcium,Total 8.9 mg/dL (7.6-11.0); Carbon Dioxide 18.8 mmol/L (21.0-32.0); Chloride 105 mmol/L (98-108); Estimated Creatinine Clearance 97.66 ml/min (50-250); Glucose 106 mg/dL (70-99); Potassium 4.3 mmol/L (3.3-5.1)
[2025-02-12] MEDS: Amiodarone 360 MG in Dextrose 5% Viaflo Bag 192.8 ML 16.7 MG CONT INF (11:07)
--- NOTE | 2025-02-12 11:13 | PCM.DC ---
Discharge Instructions Diet Discharge Diet: Low fat / Low cholesterol and 2000 mg Sodium Diet DC O2, CPAP, BIPAP needs Home O2 Discharge instructions: No Dressing / Incision Discharge Activity: Return to Normal Activity Weight Bearing Status: Weight bearing as tolerated Dressing / Incision Call your doctor if you observe: Fever of 101 or Higher, Coldness, Increased Pain, Numbness or Tingling, Change in Color, Inability to urinate, Inability to have a bowel movement, Shortness of breath, Dizziness, Fainting spells, Swelling in the ankles, Chest pain, Prolonged hiccupping, Increased palpitations (irregular heartbeat) and Calf discomfort Follow Up Care When: IN 2 WEEKS Test Results: Test results from this visit will be discussed in further detail at your follow-up appointment, if applicable. Discharge Plan Admission Admit Date/Time: 02/09/25 16:09 Primary Reason for Your Visit: Persistent atrial flutter status post cardioversion Attending Provider: Evan Marion Primary Care Provider: Yung Philip Consulting Providers: Denise Skelton Discharge Orders/Prescriptions Prescriptions: New metoprolol tartrate 25 mg Tablet 25 mg PO BID 30 Days Qty: 60 4RF Eliquis 5 mg tablet 5 mg PO BID 30 Days Qty: 60 2RF Rx Instructions: Discontinue if platelet count drops less than 50,000 or hemoglobin less than 8 g% Referrals / Follow Up: Cipriano Krishnamurthy MD [Med Staff - Active Staff] - Within 1 Month (Atrial flutter) Yung Philip MD [Primary Care Provider] - Booker Reynolds DIGITAL STRATEGY DIRECTOR, DIGITAL STRATEGY DIRECTOR-C [Med Staff - Adv Practice Prof] - Within 2 Weeks Disposition Disposition (needs filled in before D/C Order can be placed): Home, Self Care
--- NOTE | 2025-02-12 12:42 | PCM.OP.PRO2 ---
Procedures Pulmonary Pulmonary Procedures /Diagnostic Testin Con Sedation Non-invasive Procedural Procedure Information Date of Procedure: 02/12/25 Description of procedure: CONSCIOUS SEDATION REPORT DATE OF SERVICE: February 12, 2025 BRIEF HISTORY OF PRESENT ILLNESS: The patient is a 54-year-old male currently admitted to the hospital secondary to new onset atrial fibrillation who presented to undergo an elective cardioversion. The patient denied any prior anesthetic complications. He did undergo a ELI on February 11 which demonstrated an ejection fraction of 55 to 60% without any evidence of thrombus. The patient is currently anticoagulated on heparin. PHYSICAL EXAMINATION: VITAL SIGNS: Reviewed and were acceptable. GENERAL: The patient is a male, in no apparent distress, speaking in full sentences. HEENT: Normocephalic, atraumatic. Mucous membranes are moist and pink. Good mouth opening noted. Trachea is midline. MPI CHEST: S1, S2 irregularly irregular. No murmurs, rubs or gallops were noted. LUNGS: Clear to auscultation bilaterally without appreciable wheezes, rales or rhonchi. ABDOMEN: Soft, nontender, nondistended. Positive bowel sounds. EXTREMITIES: There is no clubbing, cyanosis or edema. ASA Class: II DESCRIPTION OF PROCEDURE: After confirmation of informed consent, the patient's anesthesia plan was reviewed in detail. Propofol was chosen. Risks and benefits were reviewed and the patient agreed to proceed. At 1226, the patient was given 60 mg of propofol. The patient achieved an appropriate level of sedation and was given a 200 joule synchronized cardioversion by Dr. Lee at the bedside. This was successful in achieving normal sinus rhythm. The patient was monitored until 1241, at which time he reached his baseline mental status and function. The patient tolerated the procedure well. COMPLICATIONS: None ESTIMATED BLOOD LOSS: None RECOMMENDATIONS: Okay to recover in usual fashion.
--- NOTE | 2025-02-12 14:21 | CARDIOVERS_ITS ---
Cardioversion Cardioversion: Day of the procedure: February 12, 2025 Synchronized cardioversion Indication: 54-year-old patient with new onset atrial flutter with rapid ventricular rate Was on treatment with heparin as well as amiodarone. Clinical information: 54-year-old patient, with new onset atrial flutter variable ventricular rate Has evaluation by echocardiogram which showed normal ejection fraction the range of 55 to 60%. Further evaluation by transesophageal echocardiogram showed normal LV function with left atrial appendage well-visualized by ELI showed no evidence of thrombus. Based on the clinical presentation patient was on treatment with IV amiodarone still was in atrial flutter which is a new onset therefore we decided to proceed with synchronized cardioversion. Sedation: By anesthesiologist, Dr. Murray Elevator Repairer Helper Wisam Lee MD,[facility] head banquet waitress Procedures in detail: Patient has sedation by anesthesiologist Propofol total of 60 mg by Then will proceed with synchronized cardioversion using a biphasic 200 J successfully converted to normal sinus rhythm Following the procedure once the patient was awake from sedation and anesthesia neuro evaluation showed no focal neurological deficit patient alert orientated. Does not have any focal neurological deficit. Conclusion: Successful synchronized cardioversion for new onset atrial flutter Patient was on heparin Will start on anticoagulation with Eliquis 5 mg twice daily Will continue on rate control using beta-kailey metoprolol low-dose as well as Cardizem From cardiac standpoint Discharge condition: Patient tolerated synchronized cardioversion very well and converted to normal sinus rhythm successfully Would recommend to follow-up with ethylene oxide panelboard operator at [facility] for continuation of cardiac care. And to start on oral anticoagulation with Eliquis 5 mg twice daily Wisam Lee MD,[facility] head banquet waitress
--- NOTE | 2025-02-12 14:45 | PCM.DC.SUM ---
Providers Date of Admission: 02/09/25 Date of Discharge: 02/12/25 Primary Care Physician: Dr. Yung Philip MD Consultations 02/08/25 13:41 Consult: Cardiology Routine Consulting Provider: Denise Skelton Reason for Consult: New onset A flutter EMERGENT Consult: No MD Notified: Yes Date Notified: 02/08/25 Time Notified: 13:42 Method of Notification: Verbal Reason For Visit: AFIB RVR Diagnosis Discharge Diagnosis (1) Atrial flutter with rapid ventricular response: Status: Acute Code(s): I48.92 - Unspecified atrial flutter Plan This is a healthy 54-year-old gentleman who came to ED after he had palpitation during bike ride 1. Atrial flutter with RVR: Initially twelve-lead EKG shows a flutter with variable heart rate and then 4:1 AV conduction. Twelve-lead EKG discussed with the special forces officer Dr. Skelton and consult requested. Patient is being admitted to PCU as observation. The patient is started on metoprolol tartrate 25 Mg twice daily and Cardizem drip 10 mg drip after he had bolus in the ED. [id number] score is 0 therefore anticoagulant not indicated. D-dimer elevated 0.61 but CTA chest was negative for PE. Started on baby aspirin. 2 serial troponins are negative therefore ACS ruled out. TSH normal. 02/09: All 3 troponins are normal.Last night, patient BP was decreased therefore metoprolol was held, Cardizem drip paused and patient was given IV fluid bolus and digoxin 1 dose 250 mcg. 2D echo done and no significant valvular abnormality. EF 55 to 60%. Talk to the special forces officer Dr. Skelton earlier in the morning, oral Cardizem ordered in order to transition to IV Cardizem drip. He advised discussed with the special forces officer Dr. Salinas. To start IV heparin drip without bolus as patient is already had enoxaparin DVT dose which is discontinued now and IV amiodarone bolus and continuous infusion. If he does not get converted by amiodarone, he will need ELI tomorrow a.m. and then electrocardioversion 02/10: Patient is in atrial flutter 4 to 1, AV conduction. Discussed with Dr. Salinas. Patient did not complete 24 hours of amiodarone therefore still has fair chance of conversion from amiodarone drip. If not then ELI and cardioversion tomorrow a.m. This was communicated to the patient. Cardiac diet resumed. 02/11: ELI reported left atrial appendage well-visualized with no evidence of thrombus, LV systolic function normal. Bubble study positive for PFO with agitated saline. There was plan for electrocardioversion but Dr. Murrya not available for sedation therefore postponed for tomorrow 02/12: In the morning patient still in atrial flutter. Heart rate controlled with patient had synchronized cardioversion with 200 J by special forces officer after light sedation of 60 mg of propofol. Successful conversion to NSR. Patient is easily monitored for about 2 hours. Discussed with special forces officer and advised discharged on metoprolol tartrate 25 mg twice daily and Eliquis 5 mg twice daily. Postprocedure BP 117/71. Heart rate 63/min. Lipid profile LDL 74, HDL 25. TSH normal 3.5. I talked to the patient and his and at several questions regarding atrial flutter and I explained the mechanism of atrial flutter, treatment management and follow-up with Dr. Cipriano Krishnamurthy. She was satisfied with the answer. 2. Mild hyperglycemia: BMP shows glucose 111. Denies history of diabetes mellitus. A1c ordered for tomorrow a.m. Urine studies shows mild proteinuria 15 but glucose normal. 02/09: A1c 5.4%. Prediabetes or diabetes ruled out 3. Mild dehydration: BUN 26, creatinine 1.02, BUN/creatinine ratio 25.5 therefore started on IV Ringer lactate 100 mL/h for 2 L. 02/09: BUN/creatinine normal. DVT prophylaxis, moderate risk: Enoxaparin 40 mL subcu daily ordered. Living will/advanced directive/end of life care: Patient does have living will or advanced directive. His is power of criminal defense attorney for health. After discussion of benefits/risks procedures involved with full code, DNR CC arrest and DNR CC, the patient opted for full code. Patient does want artificial life support including intubation, tube feed, ventilator and/chest compression, central venous catheter, vasopressor and DC shock if needed Total time of the visit including total time spent in counseling or coordination of care, (more than 50% of the total time, spent in obtaining medical information from nurses and other ancillary care providers ,explaining to the patient about labs, imaging, diagnosis and management of active complex medical conditions), management of atrial flutter, discussion with the cardiology, review of labs and imaging is 35 minutes. Discharge medication reconciliation done. Discharge follow-up instructions completed. Discharge process discussed with the patient and all questions were answered to patient's satisfaction. Follow with PCP in 1 to 2 weeks Total time spent, exact 35 minutes on discharge meds reconciliation, examination, coordination of care with nurses and ancillary staff, review of imaging and blood test and discussion with the patient on follow-up instructions. Laboratory Results 02/08/25 15:30: Troponin T Hi Sens 4Hr 20 Hemoglobin A1c 5.4, Calcium 8.6, Triglycerides 124, Cholesterol 124, LDL Cholesterol, Calc 74, VLDL Cholesterol 25, HDL Cholesterol 25 L, Cholesterol/HDL Ratio 4.90 02/10/25 17:41: APTT 47.7 H 02/11/25 02:00: WBC 9.6, RBC 4.00 L, Hgb 12.3 L, Hct 38.6 L, MCV 96.5 H, MCH 30.8, MCHC 31.9 L D, RDW Std Deviation 46.4 H, RDW Coeff of Kapil 13.1, Plt Count 313, MPV 9.3, Immature Gran % (Auto) 0.700, Neut % (Auto) 69.9, Lymph % (Auto) 16.5 L, Clare % (Auto) 7.8, Eos % (Auto) 4.6, Baso % (Auto) 0.5, Absolute Neuts (auto) 6.7, Absolute Lymphs (auto) 1.59, Nucleated RBC % 0, APTT 62.1 H, Sodium 138, Potassium 4.2, Chloride 104, Carbon Dioxide 24.5, Anion Gap 10, BUN 17, Creatinine 1.02, Estim Creat Clear Calc 95.74, Est GFR (MDRD) Non-Af 87, BUN/Creatinine Ratio 16.6, Glucose 137 H, Calcium 9.1 02/11/25 08:18: APTT 57.5 H Clinical Impression(s) from Imaging Studies Chest X-Ray 02/08/25 10:45 IMPRESSION: Cardiomegaly. No acute findings. Reading Location: [facility] Chest CTA 02/08/25 10:56 IMPRESSION: NORMAL CHEST CTA. NO EVIDENCE OF ACUTE PULMONARY EMBOLISM. Reading Location: [facility] Echocardiogram 02/09/25 05:55 Interpretation Summary The estimated ejection fraction is 55-50 %. No significant valvular abnormality No previous echo to compare. Ordering Physician: Evan Marion Performed By: Shelbi Florentino RDCS Transesophageal Echocardiogram 02/11/25 10:28 Interpretation Summary Transesophageal echocardiogram. Patient has atrial flutter controlled rate on treatment with amiodarone and heparin. Consent; Risk and benefits explained patient elected to proceed informed consent obtained. Moderate sedation. Patient was given a total of 75 mcg of fentanyl and 3 mg of Versed. Procedure in detail; The probe passed without difficulty Multiple views were obtained including transesophageal images Left atrial appendage well-visualized With no evidence of thrombus. LV systolic function is within normal. Bicaval view obtained with a bubble study which is positive/using agitated saline. Conclusion; ELI revealed no intracardiac thrombus, in particular left atrial appendage well-visualized in 4 views 0, 35, 90, 135 Positive bubble study/PFO Wisam Lee MD,[facility] brim molder Ordering Physician: Wisam Lee Performed By: Shelbi Florentino RDCS Medications at Discharge Home Medications apixaban 5 mg tablet (Eliquis) 5 mg PO BID 1 month #60 tabs 02/12/25 metoprolol tartrate 25 mg tablet 25 mg PO BID 30 days #60 tabs 02/12/25 Physical Exam Narrative Seen and examined in the morning and afternoon Overall no acute symptoms last 3 days. Cardioversion around noon time. In the morning, atrial flutter with 4-1 AV conduction but converted to normal sinus rhythm with electric synchronized cardioversion. Converted to sinus rhythm. Talked to the patient and his in the room. Physical exam: General: Alert, Oriented x3, Cooperative. BMI 34.6 kg/m? obesity grade 1 HEENT: Atraumatic, PERRLA, EOMI, Normocephalic. Oral: No Gingival or Mucosal Lesions/ Ulcerations Neck: Supple, No JVD, Negative Carotid Bruits Chest wall/Lungs: Air entry equal in all lung padgett bilaterally. No crepitation/rhonchi/wheezing. Cardiovascular: Sinus rhythm no M/G/R Abdomen: Bowel Sounds Present, Soft, Non Tender, Non-Distended : No dysuria. No renal angle tenderness. No suprapubic tenderness. Extremities: No edema, Capillary Refill Less than 3 Seconds Skin: No rashes, No breakdown Musculoskeletal: No acute tenderness on pelvic compression/distraction. No acute tenderness at hip and knee joints. Spine: No lumbar or sacral spine tenderness. Neurological: Cranial nerves II-XII grossly intact, DTR 2+/4. No acute focal neurological deficit. Psych/Mental Status: Normal Affect, Appropriate. Weight / BMI Weight Weight: 224 lb 6.889 oz Body Mass Index (BMI) 34.1 ABG / Lab / Microbiology Data 02/12/25 04:47 02/12/25 04:47 Laboratory: Laboratory Results - last 24 hr 02/12/25 04:47: WBC 10.2, RBC 4.06 L, Hgb 12.6 L, Hct 38.1 L, MCV 93.8, MCH 31.0, MCHC 33.1, RDW Std Deviation 45.1 H, RDW Coeff of Kapil 13.2, Plt Count 360, MPV 10.4, Immature Gran % (Auto) 0.900, Neut % (Auto) 66.7, Lymph % (Auto) 20.3, Clare % (Auto) 6.2, Eos % (Auto) 5.3 H, Baso % (Auto) 0.6, Absolute Neuts (auto) 6.8, Absolute Lymphs (auto) 2.07, Nucleated RBC % 0, APTT 59.4 H, Sodium 137, Potassium 4.3, Chloride 105, Carbon Dioxide 18.8 L, Anion Gap 13, BUN 14, Creatinine 1.00, Estim Creat Clear Calc 97.66, Est GFR (MDRD) Non-Af 89, BUN/Creatinine Ratio 14.1, Glucose 106 H, Calcium 8.9, TSH 3.540, Thyroxine (T4) 6.9, Total T3 0.98 D/C Instructions Discharge Diet: Low fat / Low cholesterol and 2000 mg Sodium Diet Weight Bearing Status: Weight bearing as tolerated Call your doctor if you observe: Fever of 101 or Higher, Coldness, Increased Pain, Numbness or Tingling, Change in Color, Inability to urinate, Inability to have a bowel movement, Shortness of breath, Dizziness, Fainting spells, Swelling in the ankles, Chest pain, Prolonged hiccupping, Increased palpitations (irregular heartbeat) and Calf discomfort DC O2, CPAP, BIPAP Needs Home O2 Discharge instructions: No When: IN 2 WEEKS Meaningful Use Info Meaningful Use Meaningful Use Diagnoses (Choose all that apply): None applicable Ischemic Stroke Statin Dosing Therapy Reference: STATIN DOSE THERAPY REFERENCE: * Patients > 75 years receive moderate or high dose statin therapy. * Patients 75 years or YOUNGER should receive HIGH intensity statin dose unless contraindicated. You will be required to document reason for non-treatment if statin daily dose does not meet guidelines. HIGH DOSE STATIN THERAPY DAILY Atorvastatin > than or = to 40 mg Rosuvastatin > than or = to 20 mg Amlodipine + Atorvastatin > than or = to 2.5/40 mg Ezetimibe + Simvastatin 10/80 mg Simvastatin 80mg Discharge Plan Admission Admit Date/Time: 02/09/25 16:09 Primary Reason for Your Visit: Persistent atrial flutter status post cardioversion Attending Provider: Evan Marion Primary Care Provider: Yung Philip Consulting Providers: Denise Skelton Discharge Orders/Prescriptions Prescriptions: New metoprolol tartrate 25 mg Tablet 25 mg PO BID 30 Days Qty: 60 4RF Eliquis 5 mg tablet 5 mg PO BID 30 Days Qty: 60 2RF Rx Instructions: Discontinue if platelet count drops less than 50,000 or hemoglobin less than 8 g% Referrals / Follow Up: Cipriano Krishnamurthy MD [Med Staff - Active Staff] - Within 1 Month (Atrial flutter) Yung Philip MD [Primary Care Provider] - Booker Reynolds NP, OVERLAY OPERATOR-C [Med Staff - Adv Practice Prof] - Within 2 Weeks Disposition Disposition (needs filled in before D/C Order can be placed): Home, Self Care Charges/Coding Visit Charges Inpatient E&M: 40789 Disch Hosp >30min
--- NOTE | 2025-02-12 15:28 | CASEMGMT ---
Patient has order for discharge. Patient is discharging on Eliquis, RN CM called [facility], no copay for Eliquis. RN CM in to discuss needs at discharge and updated regarding no copay for medications. Patient denies needs or help at discharge. Patient had no further questions or concerns.
== END 2025-02-12 17:21 | disposition home or self-care (01) | DRG 309 ==
LOC: ED 13:25 → PCU 13:50
PROVIDERS: Internal Medicine Interventional Cardiology; Admitting Provider Internal Medicine; Emergency Provider Emergency Medicine; PCP Family Medicine; Visit Provider Internal Medicine
DX: I48.91 Unspecified atrial fibrillation (principal); Q21.12 Patent foramen ovale; E66.811 Obesity, class 1; I48.92 Unspecified atrial flutter; E86.0 Dehydration; R73.03 Prediabetes; Z68.34 Body mass index [BMI] 34.0-34.9, adult; R80.9 Proteinuria, unspecified
CPT/HCPCS: 36415; 71045; 71275; 80048; 80061; 80076; 81001; 83036; 83735; 84436; 84443; 84480; 84484; 85025; 85379; 85610; 85730; 92960; 93005; 93306; 93312; 93320; 93325; 94762; 97802; 99285; Q9967; A4216